=== PATIENT | male | born 1960 | race Caucasian/White ===

== ENCOUNTER → 2018-11-04 12:35 | Outpatient (CLI) | payer MEDICARE, MEDICAID, SELFPAY ==
[2018-10-28 15:28] VITALS: BMI 19.8
--- NOTE | 2018-11-04 12:38 | ART_ITS ---
Procedure A bilateral lower extremity continuous wave Doppler with analog waveform analysis,segmental pressures,and ankle brachial indexes without exercise. Technically difficult study. Ankle PVRs were mostly artifact difficult to assess. Left Segmental Pressures Left brachial= 106mmHg. Left thigh = 83mmHg. Left calf = 76mmHg. Left posterior tibial artery = 66mmHg. Left dorsalis pedis artery = 85mmHg. Left digit = 40 mmHg. The left calf waveforms are monophasic. The left dorsalis pedis waveforms are monophasic. The left posterior tibial artery waveforms are monophasic. The left thigh waveforms are monophasic. Right Segmental Pressures Right brachial= 112mmHg. Right thigh = 112mmHg. Right calf = 100mmHg. Right posterior tibial artery = 91mmHg. Right dorsalis pedis artery = 104mmHg. The right thigh waveforms are biphasic. The right calf waveforms are monophasic. The right dorsalis pedis waveforms are monophasic. The right posterior tibial artery waveforms are monophasic. Indices The right ankle brachial index by the dorsalis pedis is 0.93. The right ankle brachial index by the posterior tibial artery is 0.81. The right digital-brachial index is 0.46. The left ankle brachial index by the dorsalis pedis is 0.76. The left ankle brachial index by the posterior tibial artery is 0.59. The left digital-brachial index is 0.36. Interpretation Summary Right DP and PT LISSETTE's consistent with vascular claudication with suspected superficial femoral occlusive disease. Right digital indices moderately severe Monophasic right DP and PT waveforms suggest a more severe level of occlusive disease suggesting possible medial calcification of vessel virgen. Left DP and PT LISSETTE's well within the range of vascular claudication. Iliofemoral inflow disease and possibly femoral/popliteal disease on the left. Markedly abnormal digital indices consistent with critical ischemia Monophasic waveforms for the left PT and DP as on the right suggest medial calcification and a more severe level of disease Ordering Physician: Dev Alvarenga Referring Physician: Dev Alvarenga Performed By: Grisel Day RVT, CS
--- NOTE | 2018-11-04 12:38 | ECHOD_ITS ---
Reason For Study: Dyspnea/SOB Procedure This was a 2D Doppler, Color Flow transthoracic echocardiogram. Patient declined Definity. The study was technically difficult. Exam performed in department. Left Ventricle Normal LV size. Mid cavitary false tendon noted. Severe segmental systolic dysfunction (see wall motion). The estimated ejection fraction is 25 %. Transmitral doppler flow suggestive of impaired relaxation of left ventricle. Anterio-Basal: Hypokinetic. Infero-Basal: Hypokinetic. Basal inferoseptal: Akinetic. Basal anteroseptal: Akinetic. Mid-Anterior : Hypokinetic. Mid-Lateral : Hypokinetic. Mid-Posterior: Hypokinetic. Mid-Inferior: Hypokinetic. Mid-inferoseptal : Hypokinetic. Mid-anteroseptal : Akinetic. [place] : Hypokinetic. Right Ventricle Normal RV size. Normal systolic function. Atria Normal left atrium. Normal right atrium. No doppler evidence for ASD. Mitral Valve There is no mitral annular calcification. Mild diffuse mitral valve thickening. Trivial mitral valve insufficiency. Tricuspid Valve Normal tricuspid valve. Trivial tricuspid valve insufficiency. Unable to estimate RV systolic pressure/pulmonary artery pressure due to technically difficult study. Aortic Valve Trisinus/trileaflet aortic valve. Mild diffuse aortic valve thickening. Mild focal aortic valve calcification. Aortic sclerosis, no stenosis. Trivial aortic valve insufficiency. Pulmonic Valve The pulmonic valve is not well visualized. Great Vessels Normal sized aortic root. Pericardium/Pleural No pericardial effusion. MMode/2D Measurements & Calculations LVIDd: 5.0 cm IVSd: 1.4 cm Ao root diam: 3.1 cm LVIDs: 4.4 cm LVPWd: 1.2 cm LA dimension: 3.1 cm RVDd: 2.5 cm FS: 12.3 % LAV(MOD-bp): 26.7 ml LVAd ap4: 30.3 cm2 SV(MOD-sp4): 23.0 ml LAV(MOD-bp) Indexed: 15.1 ml/m2 EDV(MOD-sp4): 95.4 ml LAV(MOD-sp2): 34.0 ml EDV(sp4-el): 96.5 ml LAV(MOD-sp4): 19.0 ml LVAs ap4: 25.0 cm2 ESV(MOD-sp4): 72.4 ml ESV(sp4-el): 71.8 ml EF(MOD-sp4): 24.1 % EF(sp4-el): 25.5 % SV(sp4-el): 24.6 ml LA A4 area: 10.4 cm2 RA A4 area: 9.3 cm2 Doppler Measurements & Calculations MV E max cl: 56.3 cm/sec Lat Peak E' Cl: 6.8 cm/sec Med Peak E' Cl: 6.3 cm/sec MV A max cl: 102.5 cm/sec E/E' lat: 8.2 E/E' med: 9.0 MV E/A: 0.55 Ao V2 max: 120.1 cm/sec LV V1 max: 102.7 cm/sec PA V2 max: 108.0 cm/sec Ao max P.8 mmHg LV V1 max P.2 mmHg Ao V2 mean: 90.9 cm/sec Ao mean P.5 mmHg Ao V2 VTI: 21.1 cm Interpretation Summary The study was technically difficult. Severe segmental systolic dysfunction (see wall motion). The estimated ejection fraction is 25 %. Mid cavitary false tendon noted. Mild diffuse mitral valve thickening. Trivial mitral valve insufficiency. Trivial tricuspid valve insufficiency. Aortic sclerosis, no stenosis. Trivial aortic valve insufficiency. Unable to estimate RV systolic pressure/pulmonary artery pressure due to technically difficult study. Transmitral doppler flow suggestive of impaired relaxation of left ventricle Ordering Physician: Dev Alvarenga Referring Physician: Doug Monroy Performed By: Ambar Ferrer, VICTORINA, RVT
== END ==
PROVIDERS: Family Provider Internal Medicine; PCP Internal Medicine; Referring Provider Internal Medicine Cardiovascular Disease; Visit Provider Internal Medicine Cardiovascular Disease
DX: I25.10 Atherosclerotic heart disease of native coronary artery without angina pectoris (principal); I50.22 Chronic systolic (congestive) heart failure; I43 Cardiomyopathy in diseases classified elsewhere; I73.9 Peripheral vascular disease, unspecified; Z95.5 Presence of coronary angioplasty implant and graft
CPT/HCPCS: 93306; 93923

== ENCOUNTER → 2020-08-27 13:47 | Outpatient (CLI) | payer MEDICARE, MEDICAID, SELFPAY ==
[2020-07-28 15:27] VITALS: BMI 18.8
--- NOTE | 2020-08-27 13:51 | ECHOD_ITS ---
Reason For Study: CMP Procedure This was a 2D Doppler, Color Flow transthoracic echocardiogram. The exam was of adequate technical quality. Exam performed in department. Left Ventricle Normal LV size. Mid cavitary false tendon noted. Severe segmental systolic dysfunction (see wall motion). The estimated ejection fraction is 20 %. Diastolic function is indeterminate. Anterio- Basal: Hypokinetic. Lateral-Basal: Hypokinetic. Posterior-Basal: Hypokinetic. Infero-Basal: Akinetic. Basal inferoseptal: Akinetic. Basal anteroseptal: Hypokinetic. Mid-Anterior : Akinetic. Mid-Lateral : Severely Hypokinetic. Mid-Posterior: Akinetic. Mid-Inferior: Akinetic. Mid- inferoseptal : Akinetic. Mid-anteroseptal : Akinetic. Anterior [place] : Akinetic. Inferior [place] : Akinetic. Lateral [place] : Severely Hypokinetic. Septal [place] : Hypokinetic. Right Ventricle Normal RV size. Normal systolic function. Atria Normal left atrium. Normal right atrium. No doppler evidence for ASD. Mitral Valve There is no mitral annular calcification. Normal mitral valve. Trivial mitral valve insufficiency. Tricuspid Valve Normal tricuspid valve. Trivial tricuspid valve insufficiency. Aortic Valve Trisinus/trileaflet aortic valve. Mild focal aortic valve calcification. Pulmonic Valve The pulmonic valve is not well visualized. Great Vessels The aortic root is not well visualized. Pericardium/Pleural No pericardial effusion. MMode/2D Measurements & Calculations LVIDd: 5.4 cm IVSd: 1.1 cm LA dimension: 3.5 cm LVIDs: 5.0 cm LVPWd: 1.4 cm FS: 6.2 % LAV(MOD-bp): 32.6 ml LVAd ap4: 43.4 cm2 SV(MOD-sp4): 31.7 ml LAV(MOD-bp) Indexed: 18.7 ml/m2 EDV(MOD-sp4): 168.5 ml LAV(MOD-sp2): 40.3 ml EDV(sp4-el): 171.7 ml LAV(MOD-sp4): 26.0 ml LVAs ap4: 37.8 cm2 ESV(MOD-sp4): 136.8 ml ESV(sp4-el): 135.1 ml EF(MOD-sp4): 18.8 % EF(sp4-el): 21.3 % SV(sp4-el): 36.6 ml LA A4 area: 12.5 cm2 RA A4 area: 8.6 cm2 Doppler Measurements & Calculations MV E max cl: 97.4 cm/sec Lat Peak E' Cl: 4.2 cm/sec Med Peak E' Cl: 7.0 cm/sec E/E' lat: 23.2 E/E' med: 13.8 Ao V2 max: 93.6 cm/sec LV V1 max: 71.0 cm/sec PA V2 max: 93.4 cm/sec Ao max P.5 mmHg LV V1 max P.0 mmHg Interpretation Summary Severe segmental systolic dysfunction (see wall motion). The estimated ejection fraction is 20 %. Mid cavitary false tendon noted. Trivial mitral valve insufficiency. Trivial tricuspid valve insufficiency. Mild focal aortic valve calcification. Diastolic function is indeterminate. Ordering Physician: Dev Alvarenga Referring Physician: No PCP noted Performed By: Mumtaz Marte RCS
== END ==
PROVIDERS: Referring Provider Internal Medicine Cardiovascular Disease; Visit Provider Internal Medicine Cardiovascular Disease
DX: I25.10 Atherosclerotic heart disease of native coronary artery without angina pectoris (principal); I43 Cardiomyopathy in diseases classified elsewhere; I11.0 Hypertensive heart disease with heart failure; I50.22 Chronic systolic (congestive) heart failure; E78.00 Pure hypercholesterolemia, unspecified; Z98.61 Coronary angioplasty status
CPT/HCPCS: 93306

== ENCOUNTER → 2020-09-02 15:56 | Outpatient (CLI) | payer MEDICARE, MEDICAID, SELFPAY ==
[2020-07-28 15:27] VITALS: BMI 18.8
[2020-09-02 17:28] LABS: Absolute Lymphocyte Count 2.81 X10^3/uL (0.83-4.51); Absolute Neutrophil Count 3.3 X10^3/uL (2.0-7.7); Basophil# 0.02 X10^3/uL; Basophil% 0.3 % (0-1); Eosinophil# 0.14 X10^3/uL; Eosinophils% 2.1 % (0-5); Hematocrit 50.2 % (40-54); Hemoglobin 16.5 g/dL (13.0-16.5); Lymphocyte # 2.81 X10^3/ul (4.0); Lymphocyte % 41.9 % (19-41); Mean Corp Hgb Conc 32.9 g/dL (32-36); Mean Corpuscular Hgb 29.1 pg (27.0-32.0); Mean Corpuscular Volume 88.5 fL (80-94); Mean Platelet Vol. 11.9 fl (6.2-12.0); Monocyte# 0.42 X10^3/uL; Monocyte% 6.3 % (0-10); NRBC Flagged by Analyzer 0 % (0-5); Neutrophil # 3.29 X10^3/uL (2.7-7.7); Neutrophil % 49.1 % (47-70); Platelet Count 230 K/mm3 (150-450); RBC Distribution Width CV 12.2 % (11.6-14.6); RBC Distribution Width SD 39.8 fl (35.1-43.9); Red Blood Count 5.67 M/mm3 (4.6-6.2); White Blood Count 6.7 K/mm3 (4.4-11.0)
[2020-09-02 17:47] LABS: Hemoglobin A1c 11.9 % (3.8-5.6)
[2020-09-02 18:18] LABS: ALB/GLOB Ratio 0.6 RATIO (0.9-2.4); AST(SGOT) 7 U/L (15-37); Alanine Aminotransfer ALT/SGPT 14 U/L (16-61); Albumin, Serum 3.1 g/dL (3.2-5.0); Alkaline Phosphatase 177 U/L (45-117); Anion Gap 7 (5-15); BUN 12 mg/dL (7-18); BUN/Creat Ratio 17.6 RATIO (10-20); Calcium,Total 9.2 mg/dL (8.5-10.1); Chloride 102 mmol/L (98-107); Cholesterol 233 mg/dL (200); Creatinine, Serum 0.68 mg/dL (0.70-1.30); EST Glomerular Filtration Rate 127 mL/min (>60); Est Glom Filt Rate - Afr Amer 154 mL/min (>60); Globulin 4.8 g/dL (2.2-4.2); Glucose 326 mg/dL (74-106); High Density Lipoprotein 35 mg/dL; Protein, Total 7.9 g/dL (6.4-8.2); Sodium Level 137 mmol/L (136-145); Thyroid Stim Hormone (TSH) 2.45 uIU/mL (0.358-3.74); Triglycerides 527 mg/dL
== END ==
PROVIDERS: PCP Internal Medicine; Referring Provider Internal Medicine; Visit Provider Internal Medicine
DX: E11.9 Type 2 diabetes mellitus without complications (principal); I11.0 Hypertensive heart disease with heart failure; Z89.519 Acquired absence of unspecified leg below knee; I25.10 Atherosclerotic heart disease of native coronary artery without angina pectoris; I73.9 Peripheral vascular disease, unspecified; I25.2 Old myocardial infarction; I65.23 Occlusion and stenosis of bilateral carotid arteries; I50.22 Chronic systolic (congestive) heart failure; Z98.61 Coronary angioplasty status; E78.00 Pure hypercholesterolemia, unspecified
CPT/HCPCS: 36415; 80053; 80061; 83036; 84443; 85025

== ENCOUNTER 2020-09-30 11:15 | Outpatient (RCR) | payer MEDICARE, MEDICAID, SELFPAY ==
[2020-07-28 15:27] VITALS: BMI 18.8
[2020-09-16 10:30] VITALS: BP 150/73; PULSE 113; RESP 18; TEMP 36.7; BMI 18.6
--- NOTE | 2020-09-16 12:50 | HP.PCM_ITS ---
(1) Ulcer of right lower extremity Status: Chronic Code(s): L97.919 - Non-pressure chronic ulcer of unspecified part of right lower leg with unspecified severity (2) Claudication Status: Chronic Code(s): I73.9 - Peripheral vascular disease, unspecified (3) Peripheral vascular disease Status: Chronic Code(s): I73.9 - Peripheral vascular disease, unspecified (4) Type 2 diabetes mellitus Status: Chronic Code(s): E11.9 - Type 2 diabetes mellitus without complications (5) S/P BKA (below knee amputation) Status: Resolved Qualifiers: Code(s): Z89.519 - Acquired absence of unspecified leg below knee Comment: Lt MELISSA @ [facility] 05/22/19 History of Present Illness Date of Service: 09/17/20 Chief Complaint: Right Lower extremity ulcers History of Wound: Mr. Moreno is a 60yo who was referred by his PCP to the wound center due to non healing right lower extremity ulcer. Exact onset is unknown. He was however seen by his PCP over 2 weeks jessica who had seen him months prior and at that time, noted a a lot of scaling . At his most recent visit, ulcerations were noted. History of PAD and patient states that he picks his skin a lot. He also reports almost constant bilateral lower extremity pain. 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 I saw him at the office along with his PCP and at that time ordered Santyl which he states that he has been applying over the necrotic area. There are now some open area. He continues to smoke daily. Past Medical History Past Medical History: Chronic Problems (Last Reviewed 07/28/20 @ 15:30 by Bhavani Cheung) Ulcer of right lower extremity (Chronic) Type 2 diabetes mellitus (Chronic) Claudication (Chronic) Presence of stent in coronary artery (Chronic ~03/27/08) PCI/stent to prox LAD and OM1, balloon angioplasty to Diagonal 1 03/27/08 Pure hypercholesterolemia (Chronic) Essential hypertension (Chronic) Stenosis of right carotid artery (Chronic) Peripheral vascular disease (Chronic) Arterial stenosis (Chronic) Old myocardial infarction (Chronic) Bilateral carotid artery stenosis (Chronic) Bruit of right carotid artery (Chronic) Chronic systolic (congestive) heart failure (Chronic) Cardiomyopathy in other diseases classified elsewhere (Chronic) Atherosclerotic heart disease of [place] coronary artery without angina pectoris (Chronic) 03/2008 PTCA of the LAD-proximal, Diag 1, OM 1 with intracoronary stent, IVUS LAD proximal Allergies/Adverse Reactions: Allergies Penicillins Allergy (Verified 09/02/20 15:11) Hives acetaminophen [From Percocet] Adverse Reaction (Verified 09/02/20 15:11) Other oxycodone HCl [From Percocet] Adverse Reaction (Verified 09/02/20 15:11) Other Home Medications: Ambulatory Orders Medication Instructions Recorded Aspirin E.C. [Ecotrin] 81 mg PO DAILY@0800 04/16/17 carvedilol 6.25 mg tablet 6.25 mg PO BID #60 tab 06/16/20 isosorbide mononitrate 30 mg 30 mg PO QAM #30 tab 06/16/20 tablet,extended release 24 hr nitroglycerin 0.4 mg sublingual 0.4 mg SUBLINGUAL Q5-15M PRN #25 06/16/20 tablet tab rosuvastatin 20 mg tablet 20 mg PO DAILY #30 tab 06/16/20 gabapentin 100 mg capsule 100 mg PO TID #90 cap 06/17/20 metformin 500 mg tablet 500 mg PO BID #180 tab 06/17/20 collagenase clostridium histo. 250 1 applic TOPICAL DAILY #30 g 09/02/20 unit/gram topical ointment sodium chloride 0.9 % irrigation 1 irrig TOPICAL DAILY #500 ml 09/02/20 solution dulaglutide 0.75 mg/0.5 mL 0.75 mg SC QWEEK #1 ml 09/06/20 subcutaneous pen injector Smoking Status: Current every day smoker Review of Systems Constitutional: Denies: Anorexia, Chills, Fever, Weakness Eyes: Denies: Conjunctivae Inflammation, Double vision, Pain, Redness HEENT: Denies: Difficulty Hearing, Difficulty Swallowing, Head Aches, Sore Throat Cardiovascular: Denies: Chest Tightness, Edema, Palpitations, Syncope Respiratory: Denies: Hemoptysis, Wheezing Gastrointestinal: Denies: Abdominal Pain, Hematemesis, Vomiting Skin: Denies: Jaundice - Physical Exam Vital Signs Temp Pulse Resp BP 98.0 F 113 H 18 150/73 H 09/16/20 10:30 09/16/20 10:30 09/16/20 10:30 09/16/20 10:30 General: Alert, Oriented x3, Cooperative, No apparent distress HEENT: Atraumatic, Normocephalic Oral: Moist Mucosa Neck: Supple Extremities: No cyanosis, Tenderness Skin: Ulcer/ Wound Wound Measurements and Assessment WC - Nurse 1 - General Ulcer Measurement Start: 09/16/20 10:30 Freq: Status: Active Protocol: Activity Type Activity Date Activity User E-Sign Co-Sign Detail Recorded Client Recorded Date Recorded By Document 09/16/20 10:30 PL [id number] 09/16/20 10:45 PL 09/16/20 10:30 Wound Center Nurse 1 [Ulcer Assessment] #1 RLE Cluster -Current Size (cm) - Length 11.5 -Current Size (cm) - Width 7.5 -Current Size (cm) - Depth 0.1 -Total Square Cm 86.25 -Date of Last Picture (Recall this 09/16/20 field) -Photo Taken Yes -Epithelialization Small 1-33% -Tunneling No -Undermining/Tunneling No -Circular Undermining No -Classification - Thickness Unclassifiable (Eschar Covered ) -Exudate Amt Medium -Exudate Type Serosanguineous -Granulation Amt None Present (0 %) -Necrosis Amt Large (67-100%) -Necrotic Tissue Type Eschar -Texture (Richelle-wound Skin Appearance) Excoriation -Moisture (Richelle-wound Skin Appearance Dry/Scaly ) -Color (Richelle-wound Skin Appearance) No Abnormality -Temperature (Richelle-wound Skin No Abnormality Appearance) (Pt Warm) -Ulcer Cleansing Rinsed/ Irrigated with Saline -Foul Odor after Cleansing No -Anesthetic Used 5% Lidocaine Gel ABDIRIZAK - Nurse 2 - General Ulcer CM Notes Start: 09/16/20 10:30 Freq: Status: Active Protocol: Activity Type Activity Date Activity User E-Sign Co-Sign Detail Recorded Client Recorded Date Recorded By Document 09/16/20 11:19 MW [id number] 09/16/20 11:26 MW 09/16/20 11:19 Wound Center Nurse 2 [Procedure/Treatment] -Time 11:21 -Correct Patient Yes -Correct Side, Site, Position Yes -Correct Procedure Yes -Procedure Performed No -Tunneling No -Undermining/Tunneling No -Circular Undermining No -Wound/Ulcer Outcome Not Healed -Ulcer Cleansing Not Cleansed -Foul Odor after Cleansing No -Bioengineered Tissue No -Bleeding Controlled with NA -Offloading No -Treatment Response Procedure Tolerated Well [See Physician Procedure note for Specifics] Pain Scale: 0-10 Numeric [Pain] -Is Patient Pain Free? Yes - Nurse 3 - General Ulcer D/C NN Start: 09/16/20 10:30 Freq: Status: Active Protocol: Activity Type Activity Date Activity User E-Sign Co-Sign Detail Recorded Client Recorded Date Recorded By Document 09/16/20 11:52 DL [id number] 09/16/20 11:54 DL 09/16/20 11:52 Wound Care Nurse 3 [Wound Dressing] #1 RLE Cluster -Ulcer Cleansing Rinsed/ Irrigated with Saline -Foul Odor after Cleansing No -Primary Dressing Applied NonAdherent Contact Layer -Other Dressing hydrogel -Primary Dressing Covered/Secured Dry Gauze & with Roll Gauze, Secured with Tape [Post Procedure Tolerated] -Treatment Response Procedure Tolerated Well Pain Scale: 0-10 Numeric [Pain] -Is Patient Pain Free? Yes - Visit Discharge [Visit Discharge Information] -Discharge Condition Stable -Ambulatory Status Wheelchair -Transportation Private Auto Musculoskeletal: Muscle Wasting Neurological: Cranial nerves II-XII grossly intact Psych/Mental Status: Normal Affect Debridement Note Post-Debridement Measurements/Treatment ABDIRIZAK - Nurse 2 - General Ulcer CM Notes Start: 09/16/20 10:30 Freq: Status: Active Protocol: Activity Type Activity Date Activity User E-Sign Co-Sign Detail Recorded Client Recorded Date Recorded By Document 09/16/20 11:19 MW [id number] 09/16/20 11:26 MW 09/16/20 11:19 Wound Center Nurse 2 #1 RLE Cluster -Time 11:21 -Correct Patient Yes -Correct Side, Site, Position Yes -Correct Procedure Yes -Procedure Performed No -Tunneling No -Undermining/Tunneling No -Circular Undermining No -Wound/Ulcer Outcome Not Healed -Ulcer Cleansing Not Cleansed -Foul Odor after Cleansing No -Bioengineered Tissue No -Bleeding Controlled with NA -Offloading No -Treatment Response Procedure Tolerated Well Pain Scale: 0-10 Numeric Is Patient Pain Free? Yes ABDIRIZAK - Nurse 3 - General Ulcer D/C NN Start: 09/16/20 10:30 Freq: Status: Active Protocol: Activity Type Activity Date Activity User E-Sign Co-Sign Detail Recorded Client Recorded Date Recorded By Document 09/16/20 11:52 DL [id number] 09/16/20 11:54 DL 09/16/20 11:52 Wound Care Nurse 3 #1 RLE Cluster -Ulcer Cleansing Rinsed/ Irrigated with Saline -Foul Odor after Cleansing No -Primary Dressing Applied NonAdherent Contact Layer -Other Dressing hydrogel -Primary Dressing Covered/Secured with Dry Gauze & Roll Gauze, Secured with Tape Treatment Response Procedure Tolerated Well Pain Scale: 0-10 Numeric Is Patient Pain Free? Yes WC - Visit Discharge Discharge Condition Stable Ambulatory Status Wheelchair Transportation Private Auto No debridement was completed today Assessment/Plan Active Problems (Last Reviewed 07/28/20 @ 15:30 by Bhavani Cheung) Ulcer of right lower extremity (Chronic) Type 2 diabetes mellitus (Chronic) Claudication (Chronic) Peripheral vascular disease (Chronic) Assessment: Unstageable right lower extremity cluster ulcerations most likely secondary to peripheral arterial disease. History of poor compliance. Tobacco abuse. Plan: No debridement completed today. Still has significant areas of necrotic/Eschar clustered around the right lower extremity. He also reports concerns with sharp lower extremity pain. Arterial and venous duplex studies ordered. Very lengthy discussion had with patient on the need for smoking cessation. He is open to thinking about it. For now, continue Santyl with Adaptic and gauze over top. Change daily. Recommend optimal diabetes control. Elevate lower extremities when seated and in bed. Consider referral to vascular surgery after review. His questions were answered and he was advised to call with any further questions or concerns. Follow-up in a week. This note was generated with [email or web address] dictation software. It may contain incorrect words, spelling, and punctuation that were not noted in checking the note before signing. Office Visits / Consults: [id number] OV L4 Est
--- NOTE | 2020-09-23 09:01 | ART_ITS ---
Reason For Study: PAD Procedure A bilateral lower extremity continuous wave Doppler with analog waveform analysis,segmental pressures,and ankle brachial indexes without exercise. Pt has left below knee amputation. Left Segmental Pressures Left brachial= 125mmHg. Left thigh = 105mmHg. The left thigh waveforms are biphasic. Right Segmental Pressures Right brachial= 127mmHg. Right thigh = 82mmHg. Right calf = 64mmHg. Right posterior tibial artery = 78mmHg. Right dorsalis pedis artery = 90mmHg. The right dorsalis pedis waveforms are monophasic. The right posterior tibial artery waveforms are monophasic. Indices The right ankle brachial index by the dorsalis pedis is 0.71. The right ankle brachial index by the posterior tibial artery is 0.61. Left thigh-brachial index is 0.83. Interpretation Summary Monophasic Doppler waveforms are noted at ankle level on the right. Doppler waveforms were not obtained on the left due to a below-knee amputation. Pulse-volume recording waveform amplitudes are satisfactory at low-thigh level bilaterally, but diminished at calf, ankle, and digital levels on the right. The resting right ankle-brachial index is moderately diminished. There is evidence of moderate arterial occlusive disease in the right lower extremity, which appears to be due to arterial inflow disease at the ilio-femoral or femoral-popliteal level. Clinical correlation is advised. Ordering Physician: Doug Monroy Referring Physician: Xiomara Chambers Performed By: Natali Tomlin RVT
--- NOTE | 2020-09-23 09:01 | VDLE_ITS ---
Reason For Study: Ulcer RIGHT LEFT CFV is compressible, spontaneous, phasic, CFV is compressible, spontaneous, phasic, competent and demonstrates normal competent, and demonstrates normal augmentation. augmentation. FV is compressible, spontaneous, phasic, FV is compressible, spontaneous, phasic, competent and demonstrates normal competent and demonstrates normal augmentation. augmentation. POP V is compressible, spontaneous, phasic, POP V is compressible, spontaneous, phasic, competent and demonstrates normal competent and demonstrates normal augmentation. augmentation. T/P Trunk is compressible. T/P Trunk is compressible. PTV is compressible. Lt below knee amputation. RT PerV is compressible. SFJ is competent and measures 0.68 x 0.68 cm. SFJ is competent and measures 0.67 x 0.65 cm. GSV proximal thigh measures 0.26 x 0.27 cm. GSV proximal thigh measures 0.29 x 0.31 cm. GSV at knee measures 0.25 x 0.27 cm. GSV at knee measures 0.54 x 0.55 cm. GSV is competent throughout. GSV is competent throughout. SSV at junction is competent and measures SSV at junction is INCOMPETENT for greater 0.23 x 0.21 cm. than 0.5 seconds and measures 0.28 x 0.28 cm. Procedure This is a venous duplex using B-mode, color flow and spectral Doppler. Exam performed in department. A preliminary report was called and/or faxed to . Interpretation Summary Deep veins of the lower extremities are bilaterally patent and compressible segmentally. There is no evidence of deep vein thrombosis on either side. Valvular competence appears intact within the proximal deep venous systems bilaterally. The great saphenous veins appear bilaterally patent and compressible segmentally. Sapheno-femoral junctions are bilaterally competent . Valvular competence appears to be intact segmentally within the great saphenous veins bilaterally. The right small saphenous vein is patent and incompetent. The left small saphenous vein is patent and competent. The left lower extremity is amputated below the knee. Ordering Physician: Doug Monroy Referring Physician: Xiomara Chambers Performed By: Natali Tomlin RVT
[2020-09-23 10:43] VITALS: BP 108/72; PULSE 102; TEMP 36.9; BMI 18.6
--- NOTE | 2020-09-23 12:45 | PN.PCM_ITS ---
(1) Ulcer of right lower extremity Status: Chronic Code(s): L97.919 - Non-pressure chronic ulcer of unspecified part of right lower leg with unspecified severity (2) Claudication Status: Chronic Code(s): I73.9 - Peripheral vascular disease, unspecified (3) Peripheral vascular disease Status: Chronic Code(s): I73.9 - Peripheral vascular disease, unspecified (4) Type 2 diabetes mellitus Status: Chronic Code(s): E11.9 - Type 2 diabetes mellitus without complications (5) S/P BKA (below knee amputation) Status: Resolved Qualifiers: Code(s): Z89.519 - Acquired absence of unspecified leg below knee Comment: Lt MELISSA @ [facility] 05/22/19 Type of Wound Date of Service: 09/23/20 Chief Complaint: Right Lower extremity ulcers History of Wound: Mr. Moreno is a 60yo who was referred by his PCP to the wound center due to non healing right lower extremity ulcer. Exact onset is unknown. He was however seen by his PCP over 2 weeks jessica who had seen him months prior and at that time, noted a a lot of scaling . At his most recent visit, ulcerations were noted. History of PAD and patient states that he picks his skin a lot. He also reports almost constant bilateral lower extremity pain. 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 I saw him at the office along with his PCP and at that time ordered Santyl which he states that he has been applying over the necrotic area. There are now some open area. He continues to smoke daily. Progress of Wound: No new concerns at this time. Has been applying Santyl as directed. - Physical Exam Vital Signs Temp Pulse Resp BP 98.5 F 102 H 18 108/72 09/23/20 10:43 09/23/20 10:43 09/16/20 10:30 09/23/20 10:43 General: Alert, Oriented x3, Cooperative, No apparent distress HEENT: Atraumatic, Normocephalic Oral: Moist Mucosa Neck: Supple Extremities: No cyanosis Skin: Ulcer/ Wound Wound Measurements and Assessment WC - Nurse 1 - General Ulcer Measurement Start: 09/16/20 10:30 Freq: Status: Active Protocol: Activity Type Activity Date Activity User E-Sign Co-Sign Detail Recorded Client Recorded Date Recorded By Document 09/23/20 10:43 KR [id number] 09/23/20 10:51 KR 09/23/20 10:43 Wound Center Nurse 1 [Ulcer Assessment] #1 RLE Cluster Anterior -Current Size (cm) - Length 12.5 -Current Size (cm) - Width 4.9 -Current Size (cm) - Depth 0.3 -Total Square Cm 61.25 -Exudate Amt Small -Exudate Type Serosanguineous -Wound Margin Distinct, Outline Attached -Granulation Amt Medium (34-66%) -Granulation Quality Red -Necrosis Amt Medium (34-66%) -Necrotic Tissue Type Eschar -Texture (Richelle-wound Skin Appearance) Assessed, Scarring -Moisture (Richelle-wound Skin Appearance Assessed,Dry/ ) Scaly -Color (Richelle-wound Skin Appearance) No Abnormality, Assessed -Temperature (Richelle-wound Skin No Abnormality Appearance) (Pt Warm) -Tenderness on Palpation (Richelle-wound No Skin Appearance) -Ulcer Cleansing Rinsed/ Irrigated with Saline -Foul Odor after Cleansing No -Anesthetic Used 4% Lidocaine Solution WC - Nurse 2 - General Ulcer CM Notes Start: 09/16/20 10:30 Freq: Status: Active Protocol: Activity Type Activity Date Activity User E-Sign Co-Sign Detail Recorded Client Recorded Date Recorded By Document 09/23/20 11:16 MW [id number] 09/23/20 11:34 MW 09/23/20 11:16 Wound Center Nurse 2 [Procedure/Treatment] #2 RLE Posterior -Time 11:33 -Correct Patient Yes -Correct Side, Site, Position Yes -Correct Procedure Yes -Procedure Performed Yes -Type of Procedure Debridement -Clinical Debridement Subcutaneous -Tissue Removed Subcutaneous -Post Debridement (cm) - Length 0.7 -Post Debridement (cm) - Width 0.7 -Post Debridement (cm) - Depth 0.1 -Total Square (Post) (cm) 0.49 -Area of Debridement (cm) - Length 0.7 -Area of Debridement (cm) - Width 0.7 -Total Square (Area) (cm) 0.49 -Tunneling No -Undermining/Tunneling No -Circular Undermining No -Wound/Ulcer Outcome Not Healed -Ulcer Cleansing Rinsed/ Irrigated with Saline -Foul Odor after Cleansing No -Bioengineered Tissue No -Bleeding Controlled with Pressure -Offloading No -Debridement - Subq, 1st 20sq cm No #1 RLE Cluster Anterior -Time 11:16 -Correct Patient Yes -Correct Side, Site, Position Yes -Correct Procedure Yes -Procedure Performed Yes -Type of Procedure Debridement -Clinical Debridement Subcutaneous -Tissue Removed Subcutaneous -Post Debridement (cm) - Length 11.5 -Post Debridement (cm) - Width 5.7 -Post Debridement (cm) - Depth 0.3 -Total Square (Post) (cm) 65.55 -Area of Debridement (cm) - Length 11.5 -Area of Debridement (cm) - Width 5.7 -Total Square (Area) (cm) 65.55 -Tunneling No -Undermining/Tunneling No -Circular Undermining No -Wound/Ulcer Outcome Not Healed -Ulcer Cleansing Rinsed/ Irrigated with Saline -Foul Odor after Cleansing No -Bioengineered Tissue No -Bleeding Controlled with Pressure -Offloading No -Treatment Response Procedure Tolerated Well -Debridement - Subq, 1st 20sq cm Yes -Debridement, SubQ, ea addt'l 20sq cm 3 or part thereof [See Physician Procedure note for Specifics] Pain Scale: 0-10 Numeric [Pain] -Is Patient Pain Free? Yes - Nurse 3 - General Ulcer D/C NN Start: 09/16/20 10:30 Freq: Status: Active Protocol: Activity Type Activity Date Activity User E-Sign Co-Sign Detail Recorded Client Recorded Date Recorded By Document 09/23/20 11:43 DL [id number] 09/23/20 11:44 DL 09/23/20 11:43 Wound Care Nurse 3 [Wound Dressing] #2 RLE Posterior -Ulcer Cleansing Rinsed/ Irrigated with Saline -Foul Odor after Cleansing No -Other Dressing hydrogel/ adaptic -Primary Dressing Covered/Secured Dry Gauze & with Roll Gauze, Secured with Tape #1 RLE Cluster Anterior -Ulcer Cleansing Rinsed/ Irrigated with Saline -Foul Odor after Cleansing No -Other Dressing hydrogel/ adaptic -Primary Dressing Covered/Secured Dry Gauze & with Roll Gauze, Secured with Tape [Post Procedure Tolerated] -Treatment Response Procedure Tolerated Well Pain Scale: 0-10 Numeric [Pain] -Is Patient Pain Free? Yes - Visit Discharge [Visit Discharge Information] -Discharge Condition Stable -Ambulatory Status Wheelchair -Notes: Pt to resume Santyl at home Neurological: Cranial nerves II-XII grossly intact Psych/Mental Status: Normal Affect Debridement Note Post-Debridement Measurements/Treatment WC - Nurse 2 - General Ulcer CM Notes Start: 09/16/20 10:30 Freq: Status: Active Protocol: Activity Type Activity Date Activity User E-Sign Co-Sign Detail Recorded Client Recorded Date Recorded By Document 09/16/20 11:19 MW [id number] 09/16/20 11:26 MW Document 09/23/20 11:16 MW [id number] 09/23/20 11:34 MW 09/16/20 09/23/20 11:19 11:16 Wound Center Nurse 2 #2 RLE Posterior -Time 11:33 -Correct Patient Yes -Correct Side, Site, Position Yes -Correct Procedure Yes -Procedure Performed Yes -Type of Procedure Debridement -Clinical Debridement Subcutaneous -Tissue Removed Subcutaneous -Post Debridement (cm) - Length 0.7 -Post Debridement (cm) - Width 0.7 -Post Debridement (cm) - Depth 0.1 -Total Square (Post) (cm) 0.49 -Area of Debridement (cm) - Length 0.7 -Area of Debridement (cm) - Width 0.7 -Total Square (Area) (cm) 0.49 -Tunneling No -Undermining/Tunneling No -Circular Undermining No -Wound/Ulcer Outcome Not Healed -Ulcer Cleansing Rinsed/ Irrigated with Saline -Foul Odor after Cleansing No -Bioengineered Tissue No -Bleeding Controlled with Pressure -Offloading No -Debridement - Subq, 1st 20sq cm No #1 RLE Cluster Anterior -Time 11:21 11:16 -Correct Patient Yes Yes -Correct Side, Site, Position Yes Yes -Correct Procedure Yes Yes -Procedure Performed No Yes -Type of Procedure Debridement -Clinical Debridement Subcutaneous -Tissue Removed Subcutaneous -Post Debridement (cm) - Length 11.5 -Post Debridement (cm) - Width 5.7 -Post Debridement (cm) - Depth 0.3 -Total Square (Post) (cm) 65.55 -Area of Debridement (cm) - Length 11.5 -Area of Debridement (cm) - Width 5.7 -Total Square (Area) (cm) 65.55 -Tunneling No No -Undermining/Tunneling No No -Circular Undermining No No -Wound/Ulcer Outcome Not Healed Not Healed -Ulcer Cleansing Not Cleansed Rinsed/ Irrigated with Saline -Foul Odor after Cleansing No No -Bioengineered Tissue No No -Bleeding Controlled with NA Pressure -Offloading No No -Treatment Response Procedure Procedure Tolerated Well Tolerated Well -Debridement - Subq, 1st 20sq cm Yes -Debridement, SubQ, ea addt'l 20sq cm 3 or part thereof Pain Scale: 0-10 Numeric Is Patient Pain Free? Yes Yes - Nurse 3 - General Ulcer D/C NN Start: 09/16/20 10:30 Freq: Status: Active Protocol: Activity Type Activity Date Activity User E-Sign Co-Sign Detail Recorded Client Recorded Date Recorded By Document 09/16/20 11:52 DL [id number] 09/16/20 11:54 DL Document 09/23/20 11:43 DL [id number] 09/23/20 11:44 DL 09/16/20 09/23/20 11:52 11:43 Wound Care Nurse 3 #2 RLE Posterior -Ulcer Cleansing Rinsed/ Irrigated with Saline -Foul Odor after Cleansing No -Other Dressing hydrogel/ adaptic -Primary Dressing Covered/Secured with Dry Gauze & Roll Gauze, Secured with Tape #1 RLE Cluster Anterior -Ulcer Cleansing Rinsed/ Rinsed/ Irrigated with Irrigated with Saline Saline -Foul Odor after Cleansing No No -Primary Dressing Applied NonAdherent Contact Layer -Other Dressing hydrogel hydrogel/ adaptic -Primary Dressing Covered/Secured with Dry Gauze & Dry Gauze & Roll Gauze, Roll Gauze, Secured with Secured with Tape Tape Treatment Response Procedure Procedure Tolerated Well Tolerated Well Pain Scale: 0-10 Numeric Is Patient Pain Free? Yes Yes - Visit Discharge Discharge Condition Stable Stable Ambulatory Status Wheelchair Wheelchair Transportation Private Auto Notes: Pt to resume Santyl at home Wound debrided: Right lower extremity anterior cluster Type of Debridement: Excisional debridement Anesthesia Used: 4% Lidocaine Solution Depth: Down to and including healthy tissue, in the subcutaneous layer Instrument Used: 5mm curette, #15 blade, Forceps Tissue Removed: Slough and devitalized tissue Severity: Fat Layer Exposed Amount of bleeding with debridement: Mild Bleeding Controlled with: Pressure Patient tolerated procedure well Assessment/Plan Active Problems (Last Reviewed 07/28/20 @ 15:30 by Bhavani Cheung) Ulcer of right lower extremity (Chronic) Type 2 diabetes mellitus (Chronic) Claudication (Chronic) Peripheral vascular disease (Chronic) Assessment: Unstageable right lower extremity cluster ulcerations most likely se condary to peripheral arterial disease. History of poor compliance. Tobacco abuse. Plan: Debridement done as documented above. Procedure was well-tolerated. Continue Santyl With Adaptic and gauze over top. Change daily. Recommend optimal diabetes control. Elevate lower extremities when seated and in bed. Preliminary LISSETTE studies reviewed. Right LISSETTE at 0.7. Referred to vascular surgery. His questions were answered and he was advised to call with any further questions or concerns. Follow-up in a week. This note was generated with [employer] dictation software. It may contain incorrect words, spelling, and punctuation that were not noted in checking the note before signing. [id number]: [id number] Demi subq tissue 20 sq cm/< Add On Codes: 33579 Demi subq tissue add-on - X 2. Additional Sq CM debrided. Please refer to clinical note
[2020-09-30 11:40] VITALS: BP 137/81; PULSE 96; RESP 18; TEMP 36; BMI 18.6
--- NOTE | 2020-09-30 12:56 | PN.PCM_ITS ---
(1) Ulcer of right lower extremity Status: Chronic Code(s): L97.919 - Non-pressure chronic ulcer of unspecified part of right lower leg with unspecified severity (2) Claudication Status: Chronic Code(s): I73.9 - Peripheral vascular disease, unspecified (3) Peripheral vascular disease Status: Chronic Code(s): I73.9 - Peripheral vascular disease, unspecified (4) Type 2 diabetes mellitus Status: Chronic Code(s): E11.9 - Type 2 diabetes mellitus without complications (5) S/P BKA (below knee amputation) Status: Resolved Qualifiers: Code(s): Z89.519 - Acquired absence of unspecified leg below knee Comment: Lt MELISSA @ [facility] 05/22/19 Type of Wound Date of Service: 09/30/20 Chief Complaint: Right Lower extremity ulcers History of Wound: Mr. Moreno is a 60yo who was referred by his PCP to the wound center due to non healing right lower extremity ulcer. Exact onset is unknown. He was however seen by his PCP over 2 weeks jessica who had seen him months prior and at that time, noted a a lot of scaling . At his most recent visit, ulcerations were noted. History of PAD and patient states that he picks his skin a lot. He also reports almost constant bilateral lower extremity pain. 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 I saw him at the office along with his PCP and at that time ordered Santyl which he states that he has been applying over the necrotic area. There are now some open area. He continues to smoke daily. Progress of Wound: No new concerns at this time. Has been applying Santyl as directed. Yet to establish with Vascular surgery. - Physical Exam Vital Signs Temp Pulse Resp BP 96.8 F L 96 18 137/81 H 09/30/20 11:40 09/30/20 11:40 09/30/20 11:40 09/30/20 11:40 General: Alert, Oriented x3, Cooperative, No apparent distress HEENT: Atraumatic, Normocephalic Oral: Moist Mucosa Neck: Supple Lungs: Normal air movement Extremities: No cyanosis Skin: Ulcer/ Wound Wound Measurements and Assessment WC - Nurse 1 - General Ulcer Measurement Start: 09/16/20 10:30 Freq: Status: Active Protocol: Activity Type Activity Date Activity User E-Sign Co-Sign Detail Recorded Client Recorded Date Recorded By Document 09/30/20 11:40 DL [id number] 09/30/20 11:42 DL 09/30/20 11:40 Wound Center Nurse 1 [Ulcer Assessment] #2 RLE Posterior -Current Size (cm) - Length 0.8 -Current Size (cm) - Width 0.5 -Current Size (cm) - Depth 0.1 -Total Square Cm 0.40 -Photo Taken No -Exudate Amt None Present -Wound Margin Epibole -Granulation Amt None Present (0 %) -Necrosis Amt Large (67-100%) -Necrotic Tissue Type Eschar -Structure Exposed N/A -Texture (Richelle-wound Skin Appearance) Scarring -Moisture (Richelle-wound Skin Appearance No Abnormality ) -Color (Richelle-wound Skin Appearance) Hemosiderin Staining -Temperature (Richelle-wound Skin No Abnormality Appearance) (Pt Warm) -Tenderness on Palpation (Richelle-wound No Skin Appearance) -Ulcer Cleansing Wound Cleanser -Foul Odor after Cleansing No -Anesthetic Used 4% Lidocaine Solution #1 RLE Cluster Anterior -Current Size (cm) - Length 9.2 -Current Size (cm) - Width 4 -Current Size (cm) - Depth 0.4 -Total Square Cm 36.8 -Photo Taken No -Exudate Amt Medium -Exudate Type Serosanguineous -Wound Margin Distinct, Outline Attached -Granulation Amt Medium (34-66%) -Granulation Quality Red -Necrosis Amt Medium (34-66%) -Necrotic Tissue Type Adherent Slough -Structure Exposed N/A -Texture (Richelle-wound Skin Appearance) Scarring -Moisture (Richelle-wound Skin Appearance Dry/Scaly ) -Color (Richelle-wound Skin Appearance) Hemosiderin Staining -Temperature (Richelle-wound Skin No Abnormality Appearance) (Pt Warm) -Tenderness on Palpation (Richelle-wound No Skin Appearance) -Ulcer Cleansing Wound Cleanser -Foul Odor after Cleansing No -Anesthetic Used 4% Lidocaine Solution WC - Nurse 2 - General Ulcer CM Notes Start: 09/16/20 10:30 Freq: Status: Active Protocol: Activity Type Activity Date Activity User E-Sign Co-Sign Detail Recorded Client Recorded Date Recorded By Document 09/30/20 11:43 MW [id number] 09/30/20 11:52 MW 09/30/20 11:43 Wound Center Nurse 2 [Procedure/Treatment] #2 RLE Posterior -Time 11:44 -Correct Patient Yes -Correct Side, Site, Position Yes -Correct Procedure Yes -Procedure Performed Yes -Type of Procedure Debridement -Clinical Debridement Subcutaneous -Tissue Removed Subcutaneous -Post Debridement (cm) - Length 0.7 -Post Debridement (cm) - Width 0.5 -Post Debridement (cm) - Depth 0.1 -Total Square (Post) (cm) 0.35 -Area of Debridement (cm) - Length 0.7 -Area of Debridement (cm) - Width 0.5 -Total Square (Area) (cm) 0.35 -Tunneling No -Undermining/Tunneling No -Circular Undermining No -Wound/Ulcer Outcome Not Healed -Ulcer Cleansing Rinsed/ Irrigated with Saline -Foul Odor after Cleansing No -Bioengineered Tissue No -Bleeding Controlled with Pressure -Offloading No -Treatment Response Procedure Tolerated Well -Debridement - Subq, 1st 20sq cm No #1 RLE Cluster Anterior -Time 11:44 -Correct Patient Yes -Correct Side, Site, Position Yes -Correct Procedure Yes -Procedure Performed Yes -Type of Procedure Debridement -Clinical Debridement Subcutaneous -Tissue Removed Subcutaneous -Post Debridement (cm) - Length 12.0 -Post Debridement (cm) - Width 8.0 -Post Debridement (cm) - Depth 0.3 -Total Square (Post) (cm) 96.00 -Area of Debridement (cm) - Length 12.0 -Area of Debridement (cm) - Width 8.0 -Total Square (Area) (cm) 96.00 -Tunneling No -Undermining/Tunneling No -Circular Undermining No -Wound/Ulcer Outcome Not Healed -Ulcer Cleansing Rinsed/ Irrigated with Saline -Foul Odor after Cleansing No -Bioengineered Tissue No -Bleeding Controlled with Pressure -Offloading No -Treatment Response Procedure Tolerated Well -Debridement - Subq, 1st 20sq cm Yes -Debridement, SubQ, ea addt'l 20sq cm 4 or part thereof [See Physician Procedure note for Specifics] Pain Scale: 0-10 Numeric [Pain] -Is Patient Pain Free? Yes WC - Nurse 3 - General Ulcer D/C NN Start: 09/16/20 10:30 Freq: Status: Active Protocol: Activity Type Activity Date Activity User E-Sign Co-Sign Detail Recorded Client Recorded Date Recorded By Document 09/30/20 12:07 PL [id number] 09/30/20 12:08 PL 09/30/20 12:07 Wound Care Nurse 3 [Wound Dressing] #2 RLE Posterior -Ulcer Cleansing Rinsed/ Irrigated with Saline -Foul Odor after Cleansing No -Other Dressing Santyl, Adatic -Primary Dressing Covered/Secured Dry Gauze & with Roll Gauze, Secured with Tape #1 RLE Cluster Anterior -Ulcer Cleansing Rinsed/ Irrigated with Saline -Foul Odor after Cleansing No -Other Dressing Santyl, Adatic -Primary Dressing Covered/Secured Dry Gauze & with Roll Gauze, Secured with Tape Pain Scale: 0-10 Numeric [Pain] -Is Patient Pain Free? Yes Neurological: Cranial nerves II-XII grossly intact Debridement Note Post-Debridement Measurements/Treatment WC - Nurse 2 - General Ulcer CM Notes Start: 09/16/20 10:30 Freq: Status: Active Protocol: Activity Type Activity Date Activity User E-Sign Co-Sign Detail Recorded Client Recorded Date Recorded By Document 09/16/20 11:19 MW [id number] 09/16/20 11:26 MW Document 09/23/20 11:16 MW [id number] 09/23/20 11:34 MW Document 09/30/20 11:43 MW [id number] 09/30/20 11:52 MW 09/16/20 09/23/20 09/30/20 11:19 11:16 11:43 Wound Center Nurse 2 #2 RLE Posterior -Time 11:33 11:44 -Correct Patient Yes Yes -Correct Side, Site, Position Yes Yes -Correct Procedure Yes Yes -Procedure Performed Yes Yes -Type of Procedure Debridement Debridement -Clinical Debridement Subcutaneous Subcutaneous -Tissue Removed Subcutaneous Subcutaneous -Post Debridement (cm) - Length 0.7 0.7 -Post Debridement (cm) - Width 0.7 0.5 -Post Debridement (cm) - Depth 0.1 0.1 -Total Square (Post) (cm) 0.49 0.35 -Area of Debridement (cm) - Length 0.7 0.7 -Area of Debridement (cm) - Width 0.7 0.5 -Total Square (Area) (cm) 0.49 0.35 -Tunneling No No -Undermining/Tunneling No No -Circular Undermining No No -Wound/Ulcer Outcome Not Healed Not Healed -Ulcer Cleansing Rinsed/ Rinsed/ Irrigated with Irrigated with Saline Saline -Foul Odor after Cleansing No No -Bioengineered Tissue No No -Bleeding Controlled with Pressure Pressure -Offloading No No -Treatment Response Procedure Tolerated Well -Debridement - Subq, 1st 20sq cm No No #1 RLE Cluster Anterior -Time 11: 11:16 11:44 -Correct Patient Yes Yes Yes -Correct Side, Site, Position Yes Yes Yes -Correct Procedure Yes Yes Yes -Procedure Performed No Yes Yes -Type of Procedure Debridement Debridement -Clinical Debridement Subcutaneous Subcutaneous -Tissue Removed Subcutaneous Subcutaneous -Post Debridement (cm) - Length 11.5 12.0 -Post Debridement (cm) - Width 5.7 8.0 -Post Debridement (cm) - Depth 0.3 0.3 -Total Square (Post) (cm) 65.55 96.00 -Area of Debridement (cm) - Length 11.5 12.0 -Area of Debridement (cm) - Width 5.7 8.0 -Total Square (Area) (cm) 65.55 96.00 -Tunneling No No No -Undermining/Tunneling No No No -Circular Undermining No No No -Wound/Ulcer Outcome Not Healed Not Healed Not Healed -Ulcer Cleansing Not Cleansed Rinsed/ Rinsed/ Irrigated with Irrigated with Saline Saline -Foul Odor after Cleansing No No No -Bioengineered Tissue No No No -Bleeding Controlled with NA Pressure Pressure -Offloading No No No -Treatment Response Procedure Procedure Procedure Tolerated Well Tolerated Well Tolerated Well -Debridement - Subq, 1st 20sq cm Yes Yes -Debridement, SubQ, ea addt'l 20sq cm 3 4 or part thereof Pain Scale: 0-10 Numeric Is Patient Pain Free? Yes Yes Yes WC - Nurse 3 - General Ulcer D/C NN Start: 09/16/20 10:30 Freq: Status: Active Protocol: Activity Type Activity Date Activity User E-Sign Co-Sign Detail Recorded Client Recorded Date Recorded By Document 09/16/20 11:52 DL [id number] 09/16/20 11:54 DL Document 09/23/20 11:43 DL [id number] 09/23/20 11:44 DL Document 09/30/20 12:07 PL [id number] 02/25/21 12:08 PL 09/16/20 09/23/20 09/30/20 11:52 11:43 12:07 Wound Care Nurse 3 #2 RLE Posterior -Ulcer Cleansing Rinsed/ Rinsed/ Irrigated with Irrigated with Saline Saline -Foul Odor after Cleansing No No -Other Dressing hydrogel/ Santyl, Adatic adaptic -Primary Dressing Covered/Secured with Dry Gauze & Dry Gauze & Roll Gauze, Roll Gauze, Secured with Secured with Tape Tape #1 RLE Cluster Anterior -Ulcer Cleansing Rinsed/ Rinsed/ Rinsed/ Irrigated with Irrigated with Irrigated with Saline Saline Saline -Foul Odor after Cleansing No No No -Primary Dressing Applied NonAdherent Contact Layer -Other Dressing hydrogel hydrogel/ Santyl, Adatic adaptic -Primary Dressing Covered/Secured with Dry Gauze & Dry Gauze & Dry Gauze & Roll Gauze, Roll Gauze, Roll Gauze, Secured with Secured with Secured with Tape Tape Tape Treatment Response Procedure Procedure Tolerated Well Tolerated Well Pain Scale: 0-10 Numeric Is Patient Pain Free? Yes Yes Yes WC - Visit Discharge Discharge Condition Stable Stable Ambulatory Status Wheelchair Wheelchair Transportation Private Auto Notes: Pt to resume Santyl at home Wound debrided: Right lower extremity ( salas cluster ) Type of Debridement: Excisional debridement Anesthesia Used: 4% Lidocaine Solution Depth: Down to and including healthy tissue, in the subcutaneous layer Percentage of wound debrided: 100 Instrument Used: 5mm curette Tissue Removed: Slough and devitalized tissue Severity: Fat Layer Exposed Amount of bleeding with debridement: Mild Bleeding Controlled with: Pressure Patient tolerated procedure well - Additional Wound Wound debrided: Right lower extremity ( Posterior ) Type of Debridement: Excisional debridement Anesthesia Used: 4% Lidocaine Solution Depth: Down to and including healthy tissue, in the subcutaneous layer Percentage of wound debrided: 100 Instrument Used: 5mm curette Tissue Removed: Slough and devitalized tissue Severity: Fat Layer Exposed Amount of bleeding with debridement: Mild Bleeding Controlled with: Pressure Patient tolerated procedure: Patient tolerated procedure well Assessment/Plan Active Problems (Last Reviewed 07/28/20 @ 15:30 by Bhavani Cheung) Ulcer of right lower extremity (Chronic) Type 2 diabetes mellitus (Chronic) Claudication (Chronic) Peripheral vascular disease (Chronic) Assessment: Unstageable right lower extremity cluster ulcerations most likely secondary to peripheral arterial disease. History of poor compliance. Tobacco abuse. Plan: No significant change. Debridement done as documented above. Procedure was well-tolerated. Continue Santyl With Adaptic and gauze over top. Change daily. Recommend optimal diabetes control. Elevate lower extremities when seated and in bed. Preliminary LISSETTE studies reviewed. Right LISSETTE at 0.7. Referred to vascular surgery. yet to schedule. His questions were answered and he was advised to call with any further questions or concerns. Follow-up in a week. This note was generated with [employer] dictation software. It may contain incorrect words, spelling, and punctuation that were not noted in checking the note before signing. [id number]: [id number] Demi subq tissue 20 sq cm/< Add On Codes: 23763 Demi subq tissue add-on - x4. Additional square centimeter debrided, please refer to clinical note.
== END 2020-10-03 23:59 ==
LOC: WC 11:15
PROVIDERS: PCP Internal Medicine; Referring Provider Internal Medicine; Visit Provider Internal Medicine
DX: E11.622 Type 2 diabetes mellitus with other skin ulcer (principal); E11.51 Type 2 diabetes mellitus with diabetic peripheral angiopathy without gangrene; Z89.512 Acquired absence of left leg below knee; L97.812 Non-pressure chronic ulcer of other part of right lower leg with fat layer exposed; F17.200 Nicotine dependence, unspecified, uncomplicated; I25.10 Atherosclerotic heart disease of native coronary artery without angina pectoris; I50.22 Chronic systolic (congestive) heart failure; I11.0 Hypertensive heart disease with heart failure; I42.9 Cardiomyopathy, unspecified; E78.00 Pure hypercholesterolemia, unspecified; I25.2 Old myocardial infarction; Z79.899 Other long term (current) drug therapy; Z79.82 Long term (current) use of aspirin; Z95.5 Presence of coronary angioplasty implant and graft; Z79.84 Long term (current) use of oral hypoglycemic drugs; Z89.519 Acquired absence of unspecified leg below knee; M79.605 Pain in left leg; M79.604 Pain in right leg
CPT/HCPCS: 11042; 11045; 93923; 93970; 99213; G0463

== ENCOUNTER 2020-10-28 11:00 | Outpatient (RCR) | payer MEDICARE, MEDICAID, SELFPAY ==
[2020-09-30 15:12] VITALS: BMI 18.8
[2020-10-04 00:35] VITALS: BP 137/81; PULSE 96; RESP 18; TEMP 36
[2020-10-07 11:38] VITALS: BP 102/75; PULSE 102; TEMP 36.2; BMI 18.8
--- NOTE | 2020-10-07 13:06 | PN.PCM_ITS ---
(1) Ulcer of right lower extremity Status: Chronic Code(s): L97.919 - Non-pressure chronic ulcer of unspecified part of right lower leg with unspecified severity (2) Peripheral vascular disease Status: Chronic Code(s): I73.9 - Peripheral vascular disease, unspecified (3) Type 2 diabetes mellitus Status: Chronic Code(s): E11.9 - Type 2 diabetes mellitus without complications (4) S/P BKA (below knee amputation) Status: Resolved Qualifiers: Code(s): Z89.519 - Acquired absence of unspecified leg below knee Comment: Lt MELISSA @ [facility] 05/22/19 Type of Wound Date of Service: 10/07/20 Chief Complaint: Right Lower extremity ulcers History of Wound: Mr. Moreno is a 60yo who was referred by his PCP to the wound center due to non healing right lower extremity ulcer. Exact onset is unknown. He was however seen by his PCP over 2 weeks jessica who had seen him months prior and at that time, noted a a lot of scaling . At his most recent visit, ulcerations were noted. History of PAD and patient states that he picks his skin a lot. He also reports almost constant bilateral lower extremity pain. 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 I saw him at the office along with his PCP and at that time ordered Santyl which he states that he has been applying over the necrotic area. There are now some open area. He continues to smoke daily. Progress of Wound: No new concerns at this time. Has been applying Santyl as directed. Yet to establish with Vascular surgery. - Physical Exam Vital Signs Temp Pulse Resp BP 97.1 F L 102 H 18 102/75 10/07/20 11:38 10/07/20 11:38 10/04/20 00:35 10/07/20 11:38 General: Alert, Oriented x3, Cooperative, No apparent distress HEENT: Atraumatic, Normocephalic Oral: Moist Mucosa Neck: Supple Lungs: Normal air movement Extremities: No cyanosis Skin: Ulcer/ Wound Wound Measurements and Assessment WC - Nurse 1 - General Ulcer Measurement Start: 10/07/20 11:37 Freq: Status: Active Protocol: Activity Type Activity Date Activity User E-Sign Co-Sign Detail Recorded Client Recorded Date Recorded By Document 10/07/20 11:38 KR [id number] 10/07/20 11:44 KR 10/07/20 11:38 Wound Center Nurse 1 [Ulcer Assessment] #2 RLE Posterior -Current Size (cm) - Length 0.6 -Current Size (cm) - Width 0.4 -Current Size (cm) - Depth 0.1 -Total Square Cm 0.24 -Exudate Amt Medium -Exudate Type Serosanguineous -Wound Margin Distinct, Outline Attached -Necrosis Amt Large (67-100%) -Necrotic Tissue Type Adherent Slough -Texture (Richelle-wound Skin Appearance) Assessed, Scarring -Moisture (Richelle-wound Skin Appearance No Abnormality, ) Assessed -Color (Richelle-wound Skin Appearance) No Abnormality, Assessed -Temperature (Richelle-wound Skin No Abnormality Appearance) (Pt Warm) -Tenderness on Palpation (Richelle-wound No Skin Appearance) -Ulcer Cleansing Rinsed/ Irrigated with Saline -Foul Odor after Cleansing No -Anesthetic Used 4% Lidocaine Solution #1 RLE Cluster Anterior -Current Size (cm) - Length 11 -Current Size (cm) - Width 7.9 -Current Size (cm) - Depth 0.3 -Total Square Cm 86.9 -Exudate Amt Medium -Exudate Type Serosanguineous -Wound Margin Distinct, Outline Attached -Granulation Amt None Present (0 %) -Necrosis Amt Large (67-100%) -Necrotic Tissue Type Adherent Slough -Texture (Richelle-wound Skin Appearance) Assessed, Scarring -Moisture (Richelle-wound Skin Appearance No Abnormality, ) Assessed -Color (Richelle-wound Skin Appearance) No Abnormality, Assessed -Temperature (Richelle-wound Skin No Abnormality Appearance) (Pt Warm) -Tenderness on Palpation (Richelle-wound No Skin Appearance) -Ulcer Cleansing Rinsed/ Irrigated with Saline -Foul Odor after Cleansing No -Anesthetic Used 4% Lidocaine Solution WC - Nurse 2 - General Ulcer CM Notes Start: 10/07/20 11:37 Freq: Status: Active Protocol: Activity Type Activity Date Activity User E-Sign Co-Sign Detail Recorded Client Recorded Date Recorded By Document 10/07/20 11:53 MW [id number] 10/07/20 12:04 MW 10/07/20 11:53 Wound Center Nurse 2 [Procedure/Treatment] #2 RLE Posterior -Time 11:55 -Correct Patient Yes -Correct Side, Site, Position Yes -Correct Procedure Yes -Procedure Performed Yes -Type of Procedure Debridement -Clinical Debridement Subcutaneous -Tissue Removed Subcutaneous -Post Debridement (cm) - Length 0.9 -Post Debridement (cm) - Width 0.9 -Post Debridement (cm) - Depth 0.1 -Total Square (Post) (cm) 0.81 -Area of Debridement (cm) - Length 0.9 -Area of Debridement (cm) - Width 0.9 -Total Square (Area) (cm) 0.81 -Tunneling No -Undermining/Tunneling No -Circular Undermining No -Wound/Ulcer Outcome Not Healed -Ulcer Cleansing Rinsed/ Irrigated with Saline -Foul Odor after Cleansing No -Bioengineered Tissue No -Bleeding Controlled with Pressure -Offloading No -Treatment Response Procedure Tolerated Well -Debridement - Subq, 1st 20sq cm No #1 RLE Cluster Anterior -Time 11:55 -Correct Patient Yes -Correct Side, Site, Position Yes -Correct Procedure Yes -Procedure Performed Yes -Type of Procedure Debridement -Clinical Debridement Subcutaneous -Tissue Removed Subcutaneous -Post Debridement (cm) - Length 12.0 -Post Debridement (cm) - Width 5.5 -Post Debridement (cm) - Depth 0.2 -Total Square (Post) (cm) 66.00 -Area of Debridement (cm) - Length 12.0 -Area of Debridement (cm) - Width 5.5 -Total Square (Area) (cm) 66.00 -Tunneling No -Undermining/Tunneling No -Circular Undermining No -Wound/Ulcer Outcome Not Healed -Ulcer Cleansing Rinsed/ Irrigated with Saline -Foul Odor after Cleansing No -Bioengineered Tissue No -Bleeding Controlled with Pressure -Offloading No -Treatment Response Procedure Tolerated Well -Debridement - Subq, 1st 20sq cm Yes -Debridement, SubQ, ea addt'l 20sq cm 3 or part thereof [See Physician Procedure note for Specifics] Pain Scale: 0-10 Numeric [Pain] -Is Patient Pain Free? Yes WC - Nurse 3 - General Ulcer D/C NN Start: 10/07/20 11:37 Freq: Status: Active Protocol: Activity Type Activity Date Activity User E-Sign Co-Sign Detail Recorded Client Recorded Date Recorded By Document 10/07/20 12:08 [email or web address] [id number] 10/07/20 12:09 ЕЛЕНА 10/07/20 12:08 Wound Care Nurse 3 [Wound Dressing] #2 RLE Posterior -Ulcer Cleansing Rinsed/ Irrigated with Saline -Foul Odor after Cleansing No -Primary Dressing Applied C Hydrogel ($), NonAdherent Contact Layer -Primary Dressing Covered/Secured Dry Gauze,Dry with Gauze & Roll Gauze,Secured with Tape #1 RLE Cluster Anterior -Ulcer Cleansing Rinsed/ Irrigated with Saline -Foul Odor after Cleansing No -Primary Dressing Applied C Hydrogel ($), NonAdherent Contact Layer -Primary Dressing Covered/Secured Dry Gauze,Dry with Gauze & Roll Gauze,Secured with Tape Pain Scale: 0-10 Numeric [Pain] -Is Patient Pain Free? Yes WC - Visit Discharge [Visit Discharge Information] -Discharge Condition Stable -Ambulatory Status Wheelchair -Transportation Private Auto Neurological: Cranial nerves II-XII grossly intact Psych/Mental Status: Normal Affect Debridement Note Post-Debridement Measurements/Treatment WC - Nurse 2 - General Ulcer CM Notes Start: 10/07/20 11:37 Freq: Status: Active Protocol: Activity Type Activity Date Activity User E-Sign Co-Sign Detail Recorded Client Recorded Date Recorded By Document 10/07/20 11:53 MW [id number] 10/07/20 12:04 MW 10/07/20 11:53 Wound Center Nurse 2 #2 RLE Posterior -Time 11:55 -Correct Patient Yes -Correct Side, Site, Position Yes -Correct Procedure Yes -Procedure Performed Yes -Type of Procedure Debridement -Clinical Debridement Subcutaneous -Tissue Removed Subcutaneous -Post Debridement (cm) - Length 0.9 -Post Debridement (cm) - Width 0.9 -Post Debridement (cm) - Depth 0.1 -Total Square (Post) (cm) 0.81 -Area of Debridement (cm) - Length 0.9 -Area of Debridement (cm) - Width 0.9 -Total Square (Area) (cm) 0.81 -Tunneling No -Undermining/Tunneling No -Circular Undermining No -Wound/Ulcer Outcome Not Healed -Ulcer Cleansing Rinsed/ Irrigated with Saline -Foul Odor after Cleansing No -Bioengineered Tissue No -Bleeding Controlled with Pressure -Offloading No -Treatment Response Procedure Tolerated Well -Debridement - Subq, 1st 20sq cm No #1 RLE Cluster Anterior -Time 11:55 -Correct Patient Yes -Correct Side, Site, Position Yes -Correct Procedure Yes -Procedure Performed Yes -Type of Procedure Debridement -Clinical Debridement Subcutaneous -Tissue Removed Subcutaneous -Post Debridement (cm) - Length 12.0 -Post Debridement (cm) - Width 5.5 -Post Debridement (cm) - Depth 0.2 -Total Square (Post) (cm) 66.00 -Area of Debridement (cm) - Length 12.0 -Area of Debridement (cm) - Width 5.5 -Total Square (Area) (cm) 66.00 -Tunneling No -Undermining/Tunneling No -Circular Undermining No -Wound/Ulcer Outcome Not Healed -Ulcer Cleansing Rinsed/ Irrigated with Saline -Foul Odor after Cleansing No -Bioengineered Tissue No -Bleeding Controlled with Pressure -Offloading No -Treatment Response Procedure Tolerated Well -Debridement - Subq, 1st 20sq cm Yes -Debridement, SubQ, ea addt'l 20sq cm 3 or part thereof Pain Scale: 0-10 Numeric Is Patient Pain Free? Yes - Nurse 3 - General Ulcer D/C NN Start: 10/07/20 11:37 Freq: Status: Active Protocol: Activity Type Activity Date Activity User E-Sign Co-Sign Detail Recorded Client Recorded Date Recorded By Document 10/07/20 12:08 [email or web address] [id number] 10/07/20 12:09 ЕЛЕНА 10/07/20 12:08 Wound Care Nurse 3 #2 RLE Posterior -Ulcer Cleansing Rinsed/ Irrigated with Saline -Foul Odor after Cleansing No -Primary Dressing Applied C Hydrogel ($), NonAdherent Contact Layer -Primary Dressing Covered/Secured with Dry Gauze,Dry Gauze & Roll Gauze,Secured with Tape #1 RLE Cluster Anterior -Ulcer Cleansing Rinsed/ Irrigated with Saline -Foul Odor after Cleansing No -Primary Dressing Applied C Hydrogel ($), NonAdherent Contact Layer -Primary Dressing Covered/Secured with Dry Gauze,Dry Gauze & Roll Gauze,Secured with Tape Pain Scale: 0-10 Numeric Is Patient Pain Free? Yes - Visit Discharge Discharge Condition Stable Ambulatory Status Wheelchair Transportation Private Auto Wound debrided: Right lower extremity posterior Type of Debridement: Excisional debridement Anesthesia Used: 4% Lidocaine Solution Depth: Down to and including healthy tissue, in the subcutaneous layer Percentage of wound debrided: 100 Instrument Used: 3mm curette, #15 blade, Forceps Tissue Removed: Slough and devitalized tissue Severity: Fat Layer Exposed Amount of bleeding with debridement: Mild Bleeding Controlled with: Pressure Patient tolerated procedure well - Additional Wound Wound debrided: Right lower extremity anterior cluster Type of Debridement: Excisional debridement Anesthesia Used: 4% Lidocaine Solution Depth: Down to and including healthy tissue, in the subcutaneous layer Percentage of wound debrided: 100 Instrument Used: 5mm curette, #15 blade, Forceps Tissue Removed: Slough and devitalized tissue Severity: Fat Layer Exposed Amount of bleeding with debridement: Mild Bleeding Controlled with: Pressure Patient tolerated procedure: Patient tolerated procedure well Assessment/Plan Assessment: Right lower extremity ulcers with fat layer exposed. Peripheral arterial disease. Tobacco abuse. Plan: Overall achieving better granulation tissue. Debridement done as documented above. Procedure was well-tolerated. Continue Santyl With Adaptic and gauze over top. Change daily. Recommend optimal diabetes control. Elevate lower extremities when seated and in bed. LISSETTE studies reviewed. Right LISSETTE at 0.7. Referred to vascular surgery. yet to schedule. His questions were a nswered and he was advised to call with any further questions or concerns. Follow-up in a week. This note was generated with [employer] dictation software. It may contain incorrect words, spelling, and punctuation that were not noted in checking the note before signing. [id number]: [id number] Demi subq tissue 20 sq cm/< Add On Codes: [id number] Demi subq tissue add-on - Additional square centimeter debrided, please refer to clinical note.
[2020-10-14 14:42] VITALS: BP 93/76; PULSE 104; TEMP 36.3; BMI 18.8
[2020-10-14 15:17] VITALS: BP 96/76
--- NOTE | 2020-10-14 17:14 | PCM.WC.PN ---
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 transplanted heart: [place] heart Qualified Code(s): I25.10 - Atherosclerotic heart disease of [place] coronary artery without angina pectoris Code(s): I25.10 - Atherosclerotic heart disease of [place] coronary artery without angina pectoris Comment: 03/2008 PTCA of the LAD-proximal, Diag 1, OM 1 with intracoronary stent, IVUS LAD proximal (6) Essential hypertension Status: Chronic Code(s): I10 - Essential (primary) hypertension Type of Wound Date of Service: 10/14/20 Chief Complaint: Right Lower extremity ulcers History of Wound: Mr. Moreno is a 60yo who was referred by his PCP to the wound center due to non healing right lower extremity ulcer. Exact onset is unknown. He was however seen by his PCP over 2 weeks jessica who had seen him months prior and at that time, noted a a lot of scaling . At his most recent visit, ulcerations were noted. History of PAD and patient states that he picks his skin a lot. He also reports almost constant bilateral lower extremity pain. 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 I saw him at the office along with his PCP and at that time ordered Santyl which he states that he has been applying over the necrotic area. There are now some open area. He continues to smoke daily. Progress of Wound: courtesy visit for Dr. Monroy-No new concerns at this time. Has been applying Santyl as directed. Yet to establish with Vascular surgery. - Physical Exam Vital Signs Temp Pulse Resp BP 97.4 F L 104 H 18 96/76 10/14/20 14:42 10/14/20 14:42 10/04/20 00:35 10/14/20 15:17 General: Alert, Oriented x3, Cooperative, No apparent distress HEENT: Atraumatic Oral: Moist Mucosa Lungs: Clear to auscultation, Normal air movement Cardiovascular: Regular rate Abdomen: Soft, Non Tender Extremities: No clubbing, No cyanosis, No edema, - - left AKA Skin: Ulcer/ Wound - See nursing documentation, multiple ulcers on the right lower extremity with adherent slough, no signs of infection at this time Wound Measurements and Assessment WC - Nurse 1 - General Ulcer Measurement Start: 10/07/20 11:37 Freq: Status: Active Protocol: Activity Type Activity Date Activity User E-Sign Co-Sign Detail Recorded Client Recorded Date Recorded By Document 10/14/20 14:42 [email or web address] [id number] 10/14/20 14:47 [email or web address] 10/14/20 14:42 Wound Center Nurse 1 [Ulcer Assessment] #2 RLE Posterior -Current Size (cm) - Length 0.9 -Current Size (cm) - Width 0.8 -Current Size (cm) - Depth 0.1 -Total Square Cm 0.72 -Exudate Amt None Present -Exudate Type Serosanguineous -Wound Margin Distinct, Outline Attached -Granulation Amt Large (67-100%) -Granulation Quality Red -Texture (Richelle-wound Skin Appearance) Assessed, Scarring -Moisture (Richelle-wound Skin Appearance No Abnormality, ) Assessed -Color (Richelle-wound Skin Appearance) No Abnormality, Assessed -Temperature (Richelle-wound Skin No Abnormality Appearance) (Pt Warm) -Tenderness on Palpation (Richelle-wound No Skin Appearance) -Ulcer Cleansing Rinsed/ Irrigated with Saline -Foul Odor after Cleansing No -Anesthetic Used 4% Lidocaine Solution #1 RLE Cluster Anterior -Current Size (cm) - Length 12.5 -Current Size (cm) - Width 5.2 -Current Size (cm) - Depth 0.2 -Total Square Cm 65.00 -Exudate Amt Small -Exudate Type Serosanguineous -Wound Margin Distinct, Outline Attached -Granulation Amt Medium (34-66%) -Granulation Quality Red -Necrosis Amt Medium (34-66%) -Necrotic Tissue Type Adherent Slough -Texture (Richelle-wound Skin Appearance) Assessed, Scarring -Moisture (Richelle-wound Skin Appearance No Abnormality, ) Assessed -Color (Richelle-wound Skin Appearance) No Abnormality, Assessed -Temperature (Richelle-wound Skin No Abnormality Appearance) (Pt Warm) -Tenderness on Palpation (Richelle-wound No Skin Appearance) -Ulcer Cleansing Rinsed/ Irrigated with Saline -Foul Odor after Cleansing No -Anesthetic Used 4% Lidocaine Solution WC - Nurse 2 - General Ulcer CM Notes Start: 10/07/20 11:37 Freq: Status: Active Protocol: Activity Type Activity Date Activity User E-Sign Co-Sign Detail Recorded Client Recorded Date Recorded By Document 10/14/20 14:54 MW [id number] 10/14/20 15:00 MW 10/14/20 14:54 Wound Center Nurse 2 [Procedure/Treatment] #2 RLE Posterior -Time 14:55 -Correct Patient Yes -Correct Side, Site, Position Yes -Correct Procedure Yes -Procedure Performed Yes -Type of Procedure Debridement -Clinical Debridement Subcutaneous -Tissue Removed Subcutaneous -Post Debridement (cm) - Length 1.2 -Post Debridement (cm) - Width 1.0 -Post Debridement (cm) - Depth 0.2 -Total Square (Post) (cm) 1.20 -Area of Debridement (cm) - Length 1.2 -Area of Debridement (cm) - Width 1.0 -Total Square (Area) (cm) 1.20 -Tunneling No -Undermining/Tunneling No -Circular Undermining No -Wound/Ulcer Outcome Not Healed -Ulcer Cleansing Rinsed/ Irrigated with Saline -Foul Odor after Cleansing No -Bioengineered Tissue No -Bleeding Controlled with Pressure -Offloading No -Treatment Response Procedure Tolerated Well -Debridement - Subq, 1st 20sq cm Yes #1 RLE Cluster Anterior -Time 14:55 -Correct Patient Yes -Correct Side, Site, Position Yes -Correct Procedure Yes -Procedure Performed Yes -Type of Procedure Debridement -Clinical Debridement Subcutaneous -Tissue Removed Subcutaneous -Post Debridement (cm) - Length 13.0 -Post Debridement (cm) - Width 4.5 -Post Debridement (cm) - Depth 0.3 -Total Square (Post) (cm) 58.50 -Area of Debridement (cm) - Length 13.0 -Area of Debridement (cm) - Width 4.5 -Total Square (Area) (cm) 58.50 -Tunneling No -Undermining/Tunneling No -Circular Undermining No -Wound/Ulcer Outcome Not Healed -Ulcer Cleansing Rinsed/ Irrigated with Saline -Foul Odor after Cleansing No -Bioengineered Tissue No -Bleeding Controlled with Pressure -Offloading No -Treatment Response Procedure Tolerated Well -Debridement - Subq, 1st 20sq cm No -Debridement, SubQ, ea addt'l 20sq cm 2 or part thereof [See Physician Procedure note for Specifics] Pain Scale: 0-10 Numeric [Pain] -Is Patient Pain Free? Yes - Nurse 3 - General Ulcer D/C NN Start: 10/07/20 11:37 Freq: Status: Active Protocol: Activity Type Activity Date Activity User E-Sign Co-Sign Detail Recorded Client Recorded Date Recorded By Document 10/14/20 15:17 RB [id number] 10/14/20 15:18 RB 10/14/20 15:17 Wound Care Nurse 3 [Wound Dressing] #2 RLE Posterior -Primary Dressing Applied NonAdherent Contact Layer -Other Dressing santyl -Primary Dressing Covered/Secured Dry Gauze,Dry with Gauze & Roll Gauze,Secured with Tape #1 RLE Cluster Anterior -Other Dressing santyl -Primary Dressing Covered/Secured Dry Gauze,Dry with Gauze & Roll Gauze,Secured with Tape [Post Procedure Tolerated] -Treatment Response Procedure Tolerated Well Vital Signs [Blood Pressure] -Blood Pressure (90/60-120/80) 96/76 -Blood Pressure Mean (mm Hg) 82 -Source Monitor -Position Sitting -Blood Pressure Location Left Arm Pain Scale: 0-10 Numeric [Pain] -Is Patient Pain Free? Yes - Visit Discharge [Visit Discharge Information] -Discharge Condition Stable -Ambulatory Status Wheelchair -Transportation Private Auto -Medication Reconcilliation completed No & provided to patient/care provider -Clinical Summary of Care Provided Yes Neurological: Neuro grossly intact Psych/Mental Status: Normal Affect, Appropriate, Alert and oriented to time, place, person, mood and affect Debridement Note Post-Debridement Measurements/Treatment - Nurse 2 - General Ulcer CM Notes Start: 10/07/20 11:37 Freq: Status: Active Protocol: Activity Type Activity Date Activity User E-Sign Co-Sign Detail Recorded Client Recorded Date Recorded By Document 10/07/20 11:53 MW [id number] 10/07/20 12:04 MW Document 10/14/20 14:54 MW [id number] 10/14/20 15:00 MW 10/07/20 10/14/20 11:53 14:54 Wound Center Nurse 2 #2 RLE Posterior -Time 11:55 14:55 -Correct Patient Yes Yes -Correct Side, Site, Position Yes Yes -Correct Procedure Yes Yes -Procedure Performed Yes Yes -Type of Procedure Debridement Debridement -Clinical Debridement Subcutaneous Subcutaneous -Tissue Removed Subcutaneous Subcutaneous -Post Debridement (cm) - Length 0.9 1.2 -Post Debridement (cm) - Width 0.9 1.0 -Post Debridement (cm) - Depth 0.1 0.2 -Total Square (Post) (cm) 0.81 1.20 -Area of Debridement (cm) - Length 0.9 1.2 -Area of Debridement (cm) - Width 0.9 1.0 -Total Square (Area) (cm) 0.81 1.20 -Tunneling No No -Undermining/Tunneling No No -Circular Undermining No No -Wound/Ulcer Outcome Not Healed Not Healed -Ulcer Cleansing Rinsed/ Rinsed/ Irrigated with Irrigated with Saline Saline -Foul Odor after Cleansing No No -Bioengineered Tissue No No -Bleeding Controlled with Pressure Pressure -Offloading No No -Treatment Response Procedure Procedure Tolerated Well Tolerated Well -Debridement - Subq, 1st 20sq cm No Yes #1 RLE Cluster Anterior -Time 11:55 14:55 -Correct Patient Yes Yes -Correct Side, Site, Position Yes Yes -Correct Procedure Yes Yes -Procedure Performed Yes Yes -Type of Procedure Debridement Debridement -Clinical Debridement Subcutaneous Subcutaneous -Tissue Removed Subcutaneous Subcutaneous -Post Debridement (cm) - Length 12.0 13.0 -Post Debridement (cm) - Width 5.5 4.5 -Post Debridement (cm) - Depth 0.2 0.3 -Total Square (Post) (cm) 66.00 58.50 -Area of Debridement (cm) - Length 12.0 13.0 -Area of Debridement (cm) - Width 5.5 4.5 -Total Square (Area) (cm) 66.00 58.50 -Tunneling No No -Undermining/Tunneling No No -Circular Undermining No No -Wound/Ulcer Outcome Not Healed Not Healed -Ulcer Cleansing Rinsed/ Rinsed/ Irrigated with Irrigated with Saline Saline -Foul Odor after Cleansing No No -Bioengineered Tissue No No -Bleeding Controlled with Pressure Pressure -Offloading No No -Treatment Response Procedure Procedure Tolerated Well Tolerated Well -Debridement - Subq, 1st 20sq cm Yes No -Debridement, SubQ, ea addt'l 20sq cm 3 2 or part thereof Pain Scale: 0-10 Numeric Is Patient Pain Free? Yes Yes - Nurse 3 - General Ulcer D/C NN Start: 10/07/20 11:37 Freq: Status: Active Protocol: Activity Type Activity Date Activity User E-Sign Co-Sign Detail Recorded Client Recorded Date Recorded By Document 10/07/20 12:08 KR [id number] 10/07/20 12:09 KR Document 10/14/20 15:17 RB [id number] 10/14/20 15:18 RB 10/07/20 10/14/20 12:08 15:17 Wound Care Nurse 3 #2 RLE Posterior -Ulcer Cleansing Rinsed/ Irrigated with Saline -Foul Odor after Cleansing No -Primary Dressing Applied C Hydrogel ($), NonAdherent NonAdherent Contact Layer Contact Layer -Other Dressing santyl -Primary Dressing Covered/Secured with Dry Gauze,Dry Dry Gauze,Dry Gauze & Roll Gauze & Roll Gauze,Secured Gauze,Secured with Tape with Tape #1 RLE Cluster Anterior -Ulcer Cleansing Rinsed/ Irrigated with Saline -Foul Odor after Cleansing No -Primary Dressing Applied C Hydrogel ($), NonAdherent Contact Layer -Other Dressing santyl -Primary Dressing Covered/Secured with Dry Gauze,Dry Dry Gauze,Dry Gauze & Roll Gauze & Roll Gauze,Secured Gauze,Secured with Tape with Tape Treatment Response Procedure Tolerated Well Vital Signs Blood Pressure (90/60-120/80) 96/76 Blood Pressure Mean (mm Hg) 82 Source Monitor Position Sitting Blood Pressure Location Left Arm Pain Scale: 0-10 Numeric Is Patient Pain Free? Yes Yes - Visit Discharge Discharge Condition Stable Stable Ambulatory Status Wheelchair Wheelchair Transportation Private Auto Private Auto Medication Reconcilliation completed & No provided to patient/care provider Clinical Summary of Care Provided Yes Wound debrided: Right lower extremity ulcers Type of Debridement: Excisional debridement Anesthesia Used: 5% Lidocaine Gel Depth: in the subcutaneous layer Percentage of wound debrided: 100 Instrument Used: 5mm curette Tissue Removed: Slough and devitalized tissue Severity: Fat Layer Exposed Amount of bleeding with debridement: Mild Bleeding Controlled with: Pressure Patient tolerated procedure well Assessment/Plan Active Problems (Last Reviewed 07/28/20 @ 15:30 by Bhavani Cheung) Ulcer of right lower extremity (Chronic) Type 2 diabetes mellitus (Chronic) Peripheral vascular disease (Chronic) Assessment: Right lower extremity ulcers with fat layer exposed. Peripheral arterial disease. Tobacco abuse. Plan: courtesy visit Dr. Monory-Overall achieving better granulation tissue. Debridement done as documented above. Procedure was well-tolerated. Continue Santyl With Adaptic and gauze over top. Change daily. Recommend optimal diabetes control. Elevate lower extremities when seated and in bed. LISSETTE studies reviewed. Right LISSETTE at 0.7. Referred to vascular surgery. yet to schedule. His questions were answered and he was advised to call with any further questions or concerns. Follow-up in a week. This note was generated with [employer] dictation software. It may contain incorrect words, spelling, and punctuation that were not noted in checking the note before signing. [id number]: [id number] Demi subq tissue 20 sq cm/<
[2020-10-21 11:01] VITALS: BP 152/91; PULSE 106; RESP 18; TEMP 35.7; BMI 18.8
--- NOTE | 2020-10-21 12:38 | PN.PCM_ITS ---
(1) Ulcer of right lower extremity Status: Chronic Code(s): L97.919 - Non-pressure chronic ulcer of unspecified part of right lower leg with unspecified severity (2) Peripheral vascular disease Status: Chronic Code(s): I73.9 - Peripheral vascular disease, unspecified (3) Type 2 diabetes mellitus Status: Chronic Code(s): E11.9 - Type 2 diabetes mellitus without complications (4) S/P BKA (below knee amputation) Status: Resolved Qualifiers: Code(s): Z89.519 - Acquired absence of unspecified leg below knee Comment: Lt MELISSA @ [facility] 05/22/19 Type of Wound Date of Service: 10/21/20 Chief Complaint: Right Lower extremity ulcers History of Wound: Mr. Moreno is a 60yo who was referred by his PCP to the wound center due to non healing right lower extremity ulcer. Exact onset is unknown. He was however seen by his PCP over 2 weeks jessica who had seen him months prior and at that time, noted a a lot of scaling . At his most recent visit, ulcerations were noted. History of PAD and patient states that he picks his skin a lot. He also reports almost constant bilateral lower extremity pain. 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 I saw him at the office along with his PCP and at that time ordered Santyl which he states that he has been applying over the necrotic area. There are now some open area. He continues to smoke daily. Progress of Wound: No new concerns at this time. Has been applying Santyl as directed however not sufficiently cleaning before application. Yet to establish with Vascular surgery. - Physical Exam Vital Signs Temp Pulse Resp BP 96.3 F L 106 H 18 152/91 H 10/21/20 11:01 10/21/20 11:01 10/21/20 11:01 10/21/20 11:01 General: Alert, Oriented x3, Cooperative, No apparent distress HEENT: Atraumatic, Normocephalic Oral: Moist Mucosa Neck: Supple Lungs: Normal air movement Extremities: No cyanosis Skin: Ulcer/ Wound Wound Measurements and Assessment WC - Nurse 1 - General Ulcer Measurement Start: 10/07/20 11:37 Freq: Status: Active Protocol: Activity Type Activity Date Activity User E-Sign Co-Sign Detail Recorded Client Recorded Date Recorded By Document 10/21/20 11:01 DL [id number] 10/21/20 11:07 DL 10/21/20 11:01 Wound Center Nurse 1 [Ulcer Assessment] #2 RLE Posterior -Current Size (cm) - Length 1.7 -Current Size (cm) - Width 1.3 -Current Size (cm) - Depth 0.1 -Total Square Cm 2.21 -Photo Taken No -Exudate Amt None Present -Wound Margin Thickened -Granulation Amt None Present (0 %) -Necrosis Amt Large (67-100%) -Necrotic Tissue Type Eschar -Structure Exposed N/A -Texture (Richelle-wound Skin Appearance) Scarring -Moisture (Richelle-wound Skin Appearance No Abnormality ) -Color (Richelle-wound Skin Appearance) Erythema, Hemosiderin Staining -Temperature (Richelle-wound Skin No Abnormality Appearance) (Pt Warm) -Tenderness on Palpation (Richelle-wound No Skin Appearance) -Ulcer Cleansing Wound Cleanser -Foul Odor after Cleansing No -Anesthetic Used 4% Lidocaine Solution #1 RLE Cluster Anterior -Current Size (cm) - Length 13 -Current Size (cm) - Width 4.5 -Current Size (cm) - Depth 0.3 -Total Square Cm 58.5 -Photo Taken No -Exudate Amt Medium -Exudate Type Serosanguineous -Wound Margin Distinct, Outline Attached -Granulation Amt Medium (34-66%) -Granulation Quality Red -Necrosis Amt Medium (34-66%) -Necrotic Tissue Type Adherent Slough -Structure Exposed N/A -Texture (Richelle-wound Skin Appearance) Scarring -Moisture (Richelle-wound Skin Appearance No Abnormality ) -Color (Richelle-wound Skin Appearance) Hemosiderin Staining -Temperature (Richelle-wound Skin No Abnormality Appearance) (Pt Warm) -Tenderness on Palpation (Richelle-wound No Skin Appearance) -Ulcer Cleansing Wound Cleanser -Anesthetic Used 4% Lidocaine Solution WC - Nurse 2 - General Ulcer CM Notes Start: 10/07/20 11:37 Freq: Status: Active Protocol: Activity Type Activity Date Activity User E-Sign Co-Sign Detail Recorded Client Recorded Date Recorded By Document 10/21/20 11:15 MW [id number] 10/21/20 11:25 MW 10/21/20 11:15 Wound Center Nurse 2 [Procedure/Treatment] #2 RLE Posterior -Time 11:17 -Correct Patient Yes -Correct Side, Site, Position Yes -Correct Procedure Yes -Procedure Performed Yes -Type of Procedure Debridement -Clinical Debridement Subcutaneous -Tissue Removed Subcutaneous -Post Debridement (cm) - Length 1.5 -Post Debridement (cm) - Width 1.0 -Post Debridement (cm) - Depth 0.2 -Total Square (Post) (cm) 1.50 -Area of Debridement (cm) - Length 1.5 -Area of Debridement (cm) - Width 1.0 -Total Square (Area) (cm) 1.50 -Tunneling No -Undermining/Tunneling No -Circular Undermining No -Wound/Ulcer Outcome Not Healed -Ulcer Cleansing Rinsed/ Irrigated with Saline -Foul Odor after Cleansing No -Bioengineered Tissue No -Bleeding Controlled with Pressure -Offloading No -Treatment Response Procedure Tolerated Well -Debridement - Subq, 1st 20sq cm No #1 RLE Cluster Anterior -Time 11:18 -Correct Patient Yes -Correct Side, Site, Position Yes -Correct Procedure Yes -Procedure Performed Yes -Type of Procedure Debridement -Clinical Debridement Subcutaneous -Tissue Removed Subcutaneous -Post Debridement (cm) - Length 13.0 -Post Debridement (cm) - Width 5.0 -Post Debridement (cm) - Depth 0.3 -Total Square (Post) (cm) 65.00 -Area of Debridement (cm) - Length 13.0 -Area of Debridement (cm) - Width 5.0 -Total Square (Area) (cm) 65.00 -Tunneling No -Undermining/Tunneling No -Circular Undermining No -Wound/Ulcer Outcome Not Healed -Ulcer Cleansing Rinsed/ Irrigated with Saline -Foul Odor after Cleansing No -Bioengineered Tissue No -Bleeding Controlled with Pressure -Offloading No -Treatment Response Procedure Tolerated Well -Debridement - Subq, 1st 20sq cm Yes -Debridement, SubQ, ea addt'l 20sq cm 3 or part thereof [See Physician Procedure note for Specifics] Pain Scale: 0-10 Numeric [Pain] -Is Patient Pain Free? Yes WC - Nurse 3 - General Ulcer D/C NN Start: 10/07/20 11:37 Freq: Status: Active Protocol: Activity Type Activity Date Activity User E-Sign Co-Sign Detail Recorded Client Recorded Date Recorded By Document 10/21/20 11:32 MS [id number] 10/21/20 11:34 MS 10/21/20 11:32 Wound Care Nurse 3 [Wound Dressing] #2 RLE Posterior -Ulcer Cleansing Rinsed/ Irrigated with Saline -Primary Dressing Applied Fibracol Plus 4x4 -Other Dressing adaptic, -Primary Dressing Covered/Secured Dry Gauze & with Roll Gauze, Secured with Tape -Fibracol Plus 4x4 2 #1 RLE Cluster Anterior -Ulcer Cleansing Rinsed/ Irrigated with Saline -Foul Odor after Cleansing No -Other Dressing hydrogel, adaptic -Primary Dressing Covered/Secured Dry Gauze & with Roll Gauze, Secured with Tape Pain Scale: 0-10 Numeric [Pain] -Is Patient Pain Free? Yes WC - Visit Discharge [Visit Discharge Information] -Discharge Condition Stable -Ambulatory Status Ambulatory -Medication Reconcilliation completed No & provided to patient/care provider -Clinical Summary of Care Provided Yes Musculoskeletal: No Muscle Wasting Neurological: Cranial nerves II-XII grossly intact Psych/Mental Status: Normal Affect Debridement Note Post-Debridement Measurements/Treatment WC - Nurse 2 - General Ulcer CM Notes Start: 10/07/20 11:37 Freq: Status: Active Protocol: Activity Type Activity Date Activity User E-Sign Co-Sign Detail Recorded Client Recorded Date Recorded By Document 10/07/20 11:53 MW [id number] 10/07/20 12:04 MW Document 10/14/20 14:54 MW [id number] 10/14/20 15:00 MW Document 10/21/20 11:15 MW [id number] 10/21/20 11:25 MW 10/07/20 10/14/20 10/21/20 11:53 14:54 11:15 Wound Center Nurse 2 #2 RLE Posterior -Time 11:55 14:55 11:17 -Correct Patient Yes Yes Yes -Correct Side, Site, Position Yes Yes Yes -Correct Procedure Yes Yes Yes -Procedure Performed Yes Yes Yes -Type of Procedure Debridement Debridement Debridement -Clinical Debridement Subcutaneous Subcutaneous Subcutaneous -Tissue Removed Subcutaneous Subcutaneous Subcutaneous -Post Debridement (cm) - Length 0.9 1.2 1.5 -Post Debridement (cm) - Width 0.9 1.0 1.0 -Post Debridement (cm) - Depth 0.1 0.2 0.2 -Total Square (Post) (cm) 0.81 1.20 1.50 -Area of Debridement (cm) - Length 0.9 1.2 1.5 -Area of Debridement (cm) - Width 0.9 1.0 1.0 -Total Square (Area) (cm) 0.81 1.20 1.50 -Tunneling No No No -Undermining/Tunneling No No No -Circular Undermining No No No -Wound/Ulcer Outcome Not Healed Not Healed Not Healed -Ulcer Cleansing Rinsed/ Rinsed/ Rinsed/ Irrigated with Irrigated with Irrigated with Saline Saline Saline -Foul Odor after Cleansing No No No -Bioengineered Tissue No No No -Bleeding Controlled with Pressure Pressure Pressure -Offloading No No No -Treatment Response Procedure Procedure Procedure Tolerated Well Tolerated Well Tolerated Well -Debridement - Subq, 1st 20sq cm No Yes No #1 RLE Cluster Anterior -Time 11:55 14:55 11:18 -Correct Patient Yes Yes Yes -Correct Side, Site, Position Yes Yes Yes -Correct Procedure Yes Yes Yes -Procedure Performed Yes Yes Yes -Type of Procedure Debridement Debridement Debridement -Clinical Debridement Subcutaneous Subcutaneous Subcutaneous -Tissue Removed Subcutaneous Subcutaneous Subcutaneous -Post Debridement (cm) - Length 12.0 13.0 13.0 -Post Debridement (cm) - Width 5.5 4.5 5.0 -Post Debridement (cm) - Depth 0.2 0.3 0.3 -Total Square (Post) (cm) 66.00 58.50 65.00 -Area of Debridement (cm) - Length 12.0 13.0 13.0 -Area of Debridement (cm) - Width 5.5 4.5 5.0 -Total Square (Area) (cm) 66.00 58.50 65.00 -Tunneling No No No -Undermining/Tunneling No No No -Circular Undermining No No No -Wound/Ulcer Outcome Not Healed Not Healed Not Healed -Ulcer Cleansing Rinsed/ Rinsed/ Rinsed/ Irrigated with Irrigated with Irrigated with Saline Saline Saline -Foul Odor after Cleansing No No No -Bioengineered Tissue No No No -Bleeding Controlled with Pressure Pressure Pressure -Offloading No No No -Treatment Response Procedure Procedure Procedure Tolerated Well Tolerated Well Tolerated Well -Debridement - Subq, 1st 20sq cm Yes No Yes -Debridement, SubQ, ea addt'l 20sq cm 3 2 3 or part thereof Pain Scale: 0-10 Numeric Is Patient Pain Free? Yes Yes Yes WC - Nurse 3 - General Ulcer D/C NN Start: 10/07/20 11:37 Freq: Status: Active Protocol: Activity Type Activity Date Activity User E-Sign Co-Sign Detail Recorded Client Recorded Date Recorded By Document 10/07/20 12:08 KR [id number] 10/07/20 12:09 KR Document 10/14/20 15:17 RB [id number] 10/14/20 15:18 RB Document 10/21/20 11:32 MS [id number] 10/21/20 11:34 MS 10/07/20 10/14/20 10/21/20 12:08 15:17 11:32 Wound Care Nurse 3 #2 RLE Posterior -Ulcer Cleansing Rinsed/ Rinsed/ Irrigated with Irrigated with Saline Saline -Foul Odor after Cleansing No -Primary Dressing Applied C Hydrogel ($), NonAdherent Fibracol Plus NonAdherent Contact Layer 4x4 Contact Layer -Other Dressing santyl adaptic, -Primary Dressing Covered/Secured with Dry Gauze,Dry Dry Gauze,Dry Dry Gauze & Gauze & Roll Gauze & Roll Roll Gauze, Gauze,Secured Gauze,Secured Secured with with Tape with Tape Tape -Fibracol Plus 4x4 2 #1 RLE Cluster Anterior -Ulcer Cleansing Rinsed/ Rinsed/ Irrigated with Irrigated with Saline Saline -Foul Odor after Cleansing No No -Primary Dressing Applied C Hydrogel ($), NonAdherent Contact Layer -Other Dressing santyl hydrogel, adaptic -Primary Dressing Covered/Secured with Dry Gauze,Dry Dry Gauze,Dry Dry Gauze & Gauze & Roll Gauze & Roll Roll Gauze, Gauze,Secured Gauze,Secured Secured with with Tape with Tape Tape Treatment Response Procedure Tolerated Well Vital Signs Blood Pressure (90/60-120/80 mm Hg) 96/76 Blood Pressure Mean (mm Hg) 82 Source Monitor Position Sitting Blood Pressure Location Left Arm Pain Scale: 0-10 Numeric Is Patient Pain Free? Yes Yes Yes WC - Visit Discharge Discharge Condition Stable Stable Stable Ambulatory Status Wheelchair Wheelchair Ambulatory Transportation Private Auto Private Auto Medication Reconcilliation completed & No No provided to patient/care provider Clinical Summary of Care Provided Yes Yes Wound debrided: Right lower extremity anterior cluster Type of Debridement: Excisional debridement Anesthesia Used: 4% Lidocaine Solution Depth: Down to and including healthy tissue, in the subcutaneous layer Percentage of wound debrided: 100 Instrument Used: 5mm curette Tissue Removed: Slough and devitalized tissue Severity: Fat Layer Exposed Amount of bleeding with debridement: Mild Bleeding Controlled with: Pressure Patient tolerated procedure well - Additional Wound Wound debrided: Right lower extremity ( Posterior ) Type of Debridement: Excisional debridement Anesthesia Used: 4% Lidocaine Solution Depth: Down to and including healthy tissue, in the subcutaneous layer Percentage of wound debrided: 100 Instrument Used: 5mm curette Tissue Removed: Slough and devitalized tissue Severity: Fat Layer Exposed Amount of bleeding with debridement: Mild Bleeding Controlled with: Pressure Patient tolerated procedure: Patient tolerated procedure well Assessment/Plan Active Problems (Last Reviewed 07/28/20 @ 15:30 by Bhavani Cheung) Ulcer of right lower extremity (Chronic) Type 2 diabetes mellitus (Chronic) Essential hypertension (Chronic) Peripheral vascular disease (Chronic) Arterial stenosis (Chronic) Atherosclerotic heart disease of [place] coronary artery without angina pectoris (Chronic) 03/2008 PTCA of the LAD-proximal, Diag 1, OM 1 with intracoronary stent, IVUS LAD proximal Assessment: Right lower extremity ulcers with fat layer exposed. Peripheral arterial disease. Tobacco abuse. Plan: Debridement done as documented above. Procedure was well-tolerated. Anterior ulcers with better granulation tissue. Posterior ulcer still with significant slough. Patient admits that he is not really applying Santyl to that. Continue Santyl to posterior ulcer. Switch to Fibracol to anterior ulcers. He was strongly advised to cleanse daily with soap and water prior to application. Recommend optimal diabetes control. Elevate lower extremities when seated and in bed. LISSETTE studies reviewed. Right LISSETTE at 0.7. Referred to vascular surgery. yet to schedule. His questions were answered and he was advised to call with any further questions or concerns. Follow-up in a week. This note was generated with [employer] dictation software. It may contain incorrect words, spelling, and punctuation that were not noted in checking the note before signing. [id number]: [id number] Demi subq tissue 20 sq cm/< Add On Codes: 42960 Demi subq tissue add-on - Additional square centimeter debrided, please refer to clinical note.
[2020-10-28 10:57] VITALS: BP 143/83; PULSE 110; RESP 20; TEMP 37; BMI 18.8
--- NOTE | 2020-10-28 12:35 | PCM.WC.PN ---
(1) Ulcer of right lower extremity Status: Chronic Code(s): L97.919 - Non-pressure chronic ulcer of unspecified part of right lower leg with unspecified severity (2) Peripheral vascular disease Status: Chronic Code(s): I73.9 - Peripheral vascular disease, unspecified (3) Type 2 diabetes mellitus Status: Chronic Code(s): E11.9 - Type 2 diabetes mellitus without complications (4) S/P BKA (below knee amputation) Status: Resolved Qualifiers: Code(s): Z89.519 - Acquired absence of unspecified leg below knee Comment: Lt MELISSA @ [facility] 05/22/19 Type of Wound Date of Service: 10/28/20 Chief Complaint: Right Lower extremity ulcers History of Wound: Mr. Moreno is a 60yo who was referred by his PCP to the wound center due to non healing right lower extremity ulcer. Exact onset is unknown. He was however seen by his PCP over 2 weeks jessica who had seen him months prior and at that time, noted a a lot of scaling . At his most recent visit, ulcerations were noted. History of PAD and patient states that he picks his skin a lot. He also reports almost constant bilateral lower extremity pain. 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 I saw him at the office along with his PCP and at that time ordered Santyl which he states that he has been applying over the necrotic area. There are now some open area. He continues to smoke daily. Progress of Wound: No new concerns at this time. Applying Fibrocol to anterior leg and Santyl to Posterior. Still having difficulty with posterior. Yet to schedule with vasular surgery. - Physical Exam Vital Signs Temp Pulse Resp BP 98.6 F 110 H 20 H 143/83 H 10/28/20 10:57 10/28/20 10:57 10/28/20 10:57 10/28/20 10:57 General: Alert, Oriented x3, Cooperative HEENT: Atraumatic, Normocephalic Oral: Moist Mucosa Lungs: Normal air movement Extremities: No cyanosis, No edema Skin: Ulcer/ Wound Wound Measurements and Assessment WC - Nurse 1 - General Ulcer Measurement Start: 10/07/20 11:37 Freq: Status: Active Protocol: Activity Type Activity Date Activity User E-Sign Co-Sign Detail Recorded Client Recorded Date Recorded By Document 10/28/20 10:57 DL [id number] 10/28/20 11:03 DL 10/28/20 10:57 Wound Center Nurse 1 [Ulcer Assessment] #2 RLE Posterior -Current Size (cm) - Length 1.4 -Current Size (cm) - Width 1.2 -Current Size (cm) - Depth 0.1 -Total Square Cm 1.68 -Photo Taken No -Exudate Amt Small -Wound Margin Distinct, Outline Attached -Granulation Amt None Present (0 %) -Necrosis Amt Large (67-100%) -Necrotic Tissue Type Eschar -Structure Exposed N/A -Texture (Richelle-wound Skin Appearance) Scarring -Moisture (Richelle-wound Skin Appearance Dry/Scaly ) -Color (Richelle-wound Skin Appearance) Erythema -Temperature (Richelle-wound Skin No Abnormality Appearance) (Pt Warm) -Tenderness on Palpation (Richelle-wound No Skin Appearance) -Ulcer Cleansing Wound Cleanser -Foul Odor after Cleansing No -Anesthetic Used 4% Lidocaine Solution #1 RLE Cluster Anterior -Current Size (cm) - Length 13 -Current Size (cm) - Width 2.1 -Current Size (cm) - Depth 0.4 -Total Square Cm 27.3 -Photo Taken No -Exudate Amt Medium -Exudate Type Serosanguineous -Wound Margin Distinct, Outline Attached -Granulation Amt Medium (34-66%) -Granulation Quality Red -Necrosis Amt Medium (34-66%) -Necrotic Tissue Type Adherent Slough -Structure Exposed N/A -Texture (Richelle-wound Skin Appearance) Scarring -Moisture (Richelle-wound Skin Appearance Dry/Scaly ) -Color (Richelle-wound Skin Appearance) Erythema -Temperature (Richelle-wound Skin No Abnormality Appearance) (Pt Warm) -Tenderness on Palpation (Richelle-wound No Skin Appearance) -Ulcer Cleansing Wound Cleanser -Foul Odor after Cleansing No -Anesthetic Used 4% Lidocaine Solution WC - Nurse 2 - General Ulcer CM Notes Start: 10/07/20 11:37 Freq: Status: Active Protocol: Activity Type Activity Date Activity User E-Sign Co-Sign Detail Recorded Client Recorded Date Recorded By Document 10/28/20 11:43 MW [id number] 10/28/20 11:53 MW 10/28/20 11:43 Wound Center Nurse 2 [Procedure/Treatment] #2 RLE Posterior -Time 11:43 -Correct Patient Yes -Correct Side, Site, Position Yes -Correct Procedure Yes -Procedure Performed Yes -Type of Procedure Debridement -Clinical Debridement Subcutaneous -Tissue Removed Subcutaneous -Post Debridement (cm) - Length 1.8 -Post Debridement (cm) - Width 1.5 -Post Debridement (cm) - Depth 0.1 -Total Square (Post) (cm) 2.70 -Area of Debridement (cm) - Length 1.8 -Area of Debridement (cm) - Width 1.5 -Total Square (Area) (cm) 2.70 -Tunneling No -Undermining/Tunneling No -Circular Undermining No -Wound/Ulcer Outcome Not Healed -Ulcer Cleansing Rinsed/ Irrigated with Saline -Foul Odor after Cleansing No -Bioengineered Tissue No -Bleeding Controlled with Pressure -Offloading No -Treatment Response Procedure Tolerated Well -Debridement - Subq, 1st 20sq cm Yes #1 RLE Cluster Anterior -Time 11:43 -Correct Patient Yes -Correct Side, Site, Position Yes -Correct Procedure Yes -Procedure Performed Yes -Type of Procedure Debridement -Clinical Debridement Subcutaneous -Tissue Removed Subcutaneous -Post Debridement (cm) - Length 13.0 -Post Debridement (cm) - Width 4.5 -Post Debridement (cm) - Depth 0.3 -Total Square (Post) (cm) 58.50 -Area of Debridement (cm) - Length 13.0 -Area of Debridement (cm) - Width 4.5 -Total Square (Area) (cm) 58.50 -Tunneling No -Undermining/Tunneling No -Circular Undermining No -Wound/Ulcer Outcome Not Healed -Ulcer Cleansing Rinsed/ Irrigated with Saline -Foul Odor after Cleansing No -Bioengineered Tissue No -Bleeding Controlled with Pressure -Offloading No -Treatment Response Procedure Tolerated Well -Debridement - Subq, 1st 20sq cm No [See Physician Procedure note for Specifics] Pain Scale: 0-10 Numeric [Pain] -Is Patient Pain Free? Yes WC - Nurse 3 - General Ulcer D/C NN Start: 10/07/20 11:37 Freq: Status: Active Protocol: Activity Type Activity Date Activity User E-Sign Co-Sign Detail Recorded Client Recorded Date Recorded By Document 10/28/20 11:59 MW [id number] 10/28/20 12:01 MW 10/28/20 11:59 Wound Care Nurse 3 [Wound Dressing] #2 RLE Posterior -Primary Dressing Applied C Hydrogel ($), Fibracol Plus 4x4,NonAdherent Contact Layer -Primary Dressing Covered/Secured Dry Gauze,Dry with Gauze & Roll Gauze,Secured with Tape -Fibracol Plus 4x4 1 #1 RLE Cluster Anterior -Primary Dressing Applied C Hydrogel ($), NonAdherent Contact Layer -Primary Dressing Covered/Secured Dry Gauze & with Roll Gauze, Secured with Tape WC - Visit Discharge [Visit Discharge Information] -Discharge Condition Stable -Ambulatory Status Wheelchair -Transportation Private Auto Neurological: Cranial nerves II-XII grossly intact Psych/Mental Status: Normal Affect Debridement Note Post-Debridement Measurements/Treatment WC - Nurse 2 - General Ulcer CM Notes Start: 10/07/20 11:37 Freq: Status: Active Protocol: Activity Type Activity Date Activity User E-Sign Co-Sign Detail Recorded Client Recorded Date Recorded By Document 10/07/20 11:53 MW [id number] 10/07/20 12:04 MW Document 10/14/20 14:54 MW [id number] 10/14/20 15:00 MW Document 10/21/20 11:15 MW [id number] 10/21/20 11:25 MW Document 10/28/20 11:43 MW [id number] 10/28/20 11:53 MW 10/07/20 10/14/20 10/21/20 11:53 14:54 11:15 Wound Center Nurse 2 #2 RLE Posterior -Time 11:55 14:55 11:17 -Correct Patient Yes Yes Yes -Correct Side, Site, Position Yes Yes Yes -Correct Procedure Yes Yes Yes -Procedure Performed Yes Yes Yes -Type of Procedure Debridement Debridement Debridement -Clinical Debridement Subcutaneous Subcutaneous Subcutaneous -Tissue Removed Subcutaneous Subcutaneous Subcutaneous -Post Debridement (cm) - Length 0.9 1.2 1.5 -Post Debridement (cm) - Width 0.9 1.0 1.0 -Post Debridement (cm) - Depth 0.1 0.2 0.2 -Total Square (Post) (cm) 0.81 1.20 1.50 -Area of Debridement (cm) - Length 0.9 1.2 1.5 -Area of Debridement (cm) - Width 0.9 1.0 1.0 -Total Square (Area) (cm) 0.81 1.20 1.50 -Tunneling No No No -Undermining/Tunneling No No No -Circular Undermining No No No -Wound/Ulcer Outcome Not Healed Not Healed Not Healed -Ulcer Cleansing Rinsed/ Rinsed/ Rinsed/ Irrigated with Irrigated with Irrigated with Saline Saline Saline -Foul Odor after Cleansing No No No -Bioengineered Tissue No No No -Bleeding Controlled with Pressure Pressure Pressure -Offloading No No No -Treatment Response Procedure Procedure Procedure Tolerated Well Tolerated Well Tolerated Well -Debridement - Subq, 1st 20sq cm No Yes No #1 RLE Cluster Anterior -Time 11:55 14:55 11:18 -Correct Patient Yes Yes Yes -Correct Side, Site, Position Yes Yes Yes -Correct Procedure Yes Yes Yes -Procedure Performed Yes Yes Yes -Type of Procedure Debridement Debridement Debridement -Clinical Debridement Subcutaneous Subcutaneous Subcutaneous -Tissue Removed Subcutaneous Subcutaneous Subcutaneous -Post Debridement (cm) - Length 12.0 13.0 13.0 -Post Debridement (cm) - Width 5.5 4.5 5.0 -Post Debridement (cm) - Depth 0.2 0.3 0.3 -Total Square (Post) (cm) 66.00 58.50 65.00 -Area of Debridement (cm) - Length 12.0 13.0 13.0 -Area of Debridement (cm) - Width 5.5 4.5 5.0 -Total Square (Area) (cm) 66.00 58.50 65.00 -Tunneling No No No -Undermining/Tunneling No No No -Circular Undermining No No No -Wound/Ulcer Outcome Not Healed Not Healed Not Healed -Ulcer Cleansing Rinsed/ Rinsed/ Rinsed/ Irrigated with Irrigated with Irrigated with Saline Saline Saline -Foul Odor after Cleansing No No No -Bioengineered Tissue No No No -Bleeding Controlled with Pressure Pressure Pressure -Offloading No No No -Treatment Response Procedure Procedure Procedure Tolerated Well Tolerated Well Tolerated Well -Debridement - Subq, 1st 20sq cm Yes No Yes -Debridement, SubQ, ea addt'l 20sq cm 3 2 3 or part thereof Pain Scale: 0-10 Numeric Is Patient Pain Free? Yes Yes Yes 10/28/20 11:43 Wound Center Nurse 2 #2 RLE Posterior -Time 11:43 -Correct Patient Yes -Correct Side, Site, Position Yes -Correct Procedure Yes -Procedure Performed Yes -Type of Procedure Debridement -Clinical Debridement Subcutaneous -Tissue Removed Subcutaneous -Post Debridement (cm) - Length 1.8 -Post Debridement (cm) - Width 1.5 -Post Debridement (cm) - Depth 0.1 -Total Square (Post) (cm) 2.70 -Area of Debridement (cm) - Length 1.8 -Area of Debridement (cm) - Width 1.5 -Total Square (Area) (cm) 2.70 -Tunneling No -Undermining/Tunneling No -Circular Undermining No -Wound/Ulcer Outcome Not Healed -Ulcer Cleansing Rinsed/ Irrigated with Saline -Foul Odor after Cleansing No -Bioengineered Tissue No -Bleeding Controlled with Pressure -Offloading No -Treatment Response Procedure Tolerated Well -Debridement - Subq, 1st 20sq cm Yes #1 RLE Cluster Anterior -Time 11:43 -Correct Patient Yes -Correct Side, Site, Position Yes -Correct Procedure Yes -Procedure Performed Yes -Type of Procedure Debridement -Clinical Debridement Subcutaneous -Tissue Removed Subcutaneous -Post Debridement (cm) - Length 13.0 -Post Debridement (cm) - Width 4.5 -Post Debridement (cm) - Depth 0.3 -Total Square (Post) (cm) 58.50 -Area of Debridement (cm) - Length 13.0 -Area of Debridement (cm) - Width 4.5 -Total Square (Area) (cm) 58.50 -Tunneling No -Undermining/Tunneling No -Circular Undermining No -Wound/Ulcer Outcome Not Healed -Ulcer Cleansing Rinsed/ Irrigated with Saline -Foul Odor after Cleansing No -Bioengineered Tissue No -Bleeding Controlled with Pressure -Offloading No -Treatment Response Procedure Tolerated Well -Debridement - Subq, 1st 20sq cm No -Debridement, SubQ, ea addt'l 20sq cm or part thereof Pain Scale: 0-10 Numeric Is Patient Pain Free? Yes WC - Nurse 3 - General Ulcer D/C NN Start: 10/07/20 11:37 Freq: Status: Active Protocol: Activity Type Activity Date Activity User E-Sign Co-Sign Detail Recorded Client Recorded Date Recorded By Document 10/07/20 12:08 KR [id number] 10/07/20 12:09 KR Document 10/14/20 15:17 RB [id number] 10/14/20 15:18 RB Document 10/21/20 11:32 MS [id number] 10/21/20 11:34 MS Document 10/28/20 11:59 MW [id number] 10/28/20 12:01 MW 10/07/20 10/14/20 10/21/20 12:08 15:17 11:32 Wound Care Nurse 3 #2 RLE Posterior -Ulcer Cleansing Rinsed/ Rinsed/ Irrigated with Irrigated with Saline Saline -Foul Odor after Cleansing No -Primary Dressing Applied C Hydrogel ($), NonAdherent Fibracol Plus NonAdherent Contact Layer 4x4 Contact Layer -Other Dressing santyl adaptic, -Primary Dressing Covered/Secured with Dry Gauze,Dry Dry Gauze,Dry Dry Gauze & Gauze & Roll Gauze & Roll Roll Gauze, Gauze,Secured Gauze,Secured Secured with with Tape with Tape Tape -Fibracol Plus 4x4 2 #1 RLE Cluster Anterior -Ulcer Cleansing Rinsed/ Rinsed/ Irrigated with Irrigated with Saline Saline -Foul Odor after Cleansing No No -Primary Dressing Applied C Hydrogel ($), NonAdherent Contact Layer -Other Dressing santyl hydrogel, adaptic -Primary Dressing Covered/Secured with Dry Gauze,Dry Dry Gauze,Dry Dry Gauze & Gauze & Roll Gauze & Roll Roll Gauze, Gauze,Secured Gauze,Secured Secured with with Tape with Tape Tape Treatment Response Procedure Tolerated Well Vital Signs Blood Pressure (90/60-120/80 mm Hg) 96/76 Blood Pressure Mean (mm Hg) 82 Source Monitor Position Sitting Blood Pressure Location Left Arm Pain Scale: 0-10 Numeric Is Patient Pain Free? Yes Yes Yes WC - Visit Discharge Discharge Condition Stable Stable Stable Ambulatory Status Wheelchair Wheelchair Ambulatory Transportation Private Auto Private Auto Medication Reconcilliation completed & No No provided to patient/care provider Clinical Summary of Care Provided Yes Yes 10/28/20 11:59 Wound Care Nurse 3 #2 RLE Posterior -Ulcer Cleansing -Foul Odor after Cleansing -Primary Dressing Applied C Hydrogel ($), Fibracol Plus 4x4,NonAdherent Contact Layer -Other Dressing -Primary Dressing Covered/Secured with Dry Gauze,Dry Gauze & Roll Gauze,Secured with Tape -Fibracol Plus 4x4 1 #1 RLE Cluster Anterior -Ulcer Cleansing -Foul Odor after Cleansing -Primary Dressing Applied C Hydrogel ($), NonAdherent Contact Layer -Other Dressing -Primary Dressing Covered/Secured with Dry Gauze & Roll Gauze, Secured with Tape Treatment Response Vital Signs Blood Pressure (90/60-120/80 mm Hg) Blood Pressure Mean (mm Hg) Source Position Blood Pressure Location Pain Scale: 0-10 Numeric Is Patient Pain Free? WC - Visit Discharge Discharge Condition Stable Ambulatory Status Wheelchair Transportation Private Auto Medication Reconcilliation completed & provided to patient/care provider Clinical Summary of Care Provided Wound debrided: Right leg anterior cluster Type of Debridement: Excisional debridement Anesthesia Used: 4% Lidocaine Solution, 5% Lidocaine Gel Depth: Down to and including healthy tissue, in the subcutaneous layer Percentage of wound debrided: 100 Instrument Used: 5mm curette Tissue Removed: Slough and devitalized tissue Severity: Fat Layer Exposed Amount of bleeding with debridement: Mild Bleeding Controlled with: Pressure Patient tolerated procedure well - Additional Wound Wound debrided: Right lower extremity ( Posterior ) Type of Debridement: Excisional debridement Anesthesia Used: 4% Lidocaine Solution Depth: Down to and including healthy tissue, in the subcutaneous layer Percentage of wound debrided: 100 Instrument Used: 5mm curette Tissue Removed: Slough and devitalized tissue Severity: Fat Layer Exposed Amount of bleeding with debridement: Mild Bleeding Controlled with: Pressure Patient tolerated procedure: Patient tolerated procedure well Assessment/Plan Active Problems (Last Reviewed 07/28/20 @ 15:30 by Bhavani Cheung) Ulcer of right lower extremity (Chronic) Type 2 diabetes mellitus (Chronic) Essential hypertension (Chronic) Peripheral vascular disease (Chronic) Arterial stenosis (Chronic) 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 Peripheral arterial disease. Tobacco abuse. Plan: Debridement done as documented above. Procedure was well-tolerated. Anterior ulcers with better granulation tissue. Posterior ulcer still with significant slough. Continue Santyl to posterior ulcer and Fibracol to anterior ulcers. He was strongly advised to cleanse daily with soap and water prior to application. Recommend optimal diabetes control. Elevate lower extremities when seated and in bed. LISSETTE studies reviewed. Right LISSETTE at 0.7. Referred to vascular surgery. yet to schedule. His questions were answered and he was advised to call with any further questions or concerns. Follow-up in a week. This note was generated with [employer] dictation software. It may contain incorrect words, spelling, and punctuation that were not noted in checking the note before signing. [id number]: [id number] Demi subq tissue 20 sq cm/< Add On Codes: 80275 Demi subq tissue add-on - X3 Additional square centimeter debrided, please refer to clinical note.
== END 2020-11-03 23:59 ==
LOC: WC 11:00
PROVIDERS: PCP Internal Medicine; Referring Provider Internal Medicine; Visit Provider Internal Medicine
DX: E11.622 Type 2 diabetes mellitus with other skin ulcer (principal); E11.51 Type 2 diabetes mellitus with diabetic peripheral angiopathy without gangrene; L97.812 Non-pressure chronic ulcer of other part of right lower leg with fat layer exposed; Z89.519 Acquired absence of unspecified leg below knee; M79.605 Pain in left leg; M79.604 Pain in right leg; I25.10 Atherosclerotic heart disease of native coronary artery without angina pectoris; I10 Essential (primary) hypertension
CPT/HCPCS: 11042; 11045

== ENCOUNTER 2021-09-13 18:43 | Inpatient (IN) | payer MEDICARE, MEDICAID, SELFPAY ==
[2021-09-13] VITALS (7 sets, daily range): BP systolic 98–120; BP diastolic 79–81; PULSE 89–125; RESP 15–22; TEMP 36.2–36.7; O2SAT 94–100; BMI 15.0; BMI 16.4
--- NOTE | 2021-09-13 19:18 | EKG12_ITS ---
Test Reason : DYSRHYTHMIA Blood Pressure : / mmHG Vent. Rate : 119 BPM Atrial Rate : 119 BPM P-R Int : 150 ms QRS Dur : 106 ms QT Int : 326 ms P-R-T Axes : 053 067 151 degrees QTc Int : 458 ms Sinus tachycardia Incomplete left bundle branch block Nonspecific ST and T wave abnormality Abnormal ECG Confirmed by NAKUL BELLE, MATT ([id number]), publications editor ALBIN RESENDEZ ([id number]) on 09/14/2021 9:47:57 AM Referred By: JOSE Confirmed By:MATT MOTA MD
--- NOTE | 2021-09-13 19:47 | ED.VIS.DYS ---
HPI History of Present Illness Chief Complaint: Lower Extremity Injury Detail of Chief Complaint: Chief complaint is shortness of breath not lower extremity exam injury Informant: patient Onset/Context/Timing Onset: Days Context: gradual Timing: Continuous Quality: Positive for Dyspnea on exertion; Negative for Orthopnea, PND and Wheezing Current Severity: Mild Maximum Severity: Moderate Worsened by: Exertion and Lying flat Relieved by: Nothing Associated Symptoms cough; Negative for rhinorrhea, post nasal drip, ear pain, fever, sore throat, subjective, chills, sweats, clear sputum, white sputum, yellow sputum or green sputum Chest Pain: Positive for None Narrative PE Risk Factors: Negative for Cancer, OCP + Smoking + > 35, Prior DVT or PE, Recent immobilization, Recent surgery and Recent travel Prior similar symptoms: Yes (Congestive heart failure peripheral) Recent Illness/Hospitalization: No [facility] Medical History (Updated 09/13/21 @ 22:[address] Michael Chong MD) Arterial stenosis Atherosclerotic heart disease of [place] coronary artery without angina pectoris Bilateral carotid artery stenosis Bruit of right carotid artery Cardiomyopathy Cardiomyopathy in other diseases classified elsewhere CHF (congestive heart failure) Chronic systolic (congestive) heart failure Claudication Essential hypertension HTN (hypertension) Mitral valvular disorder Old myocardial infarction Peripheral vascular disease Pure hypercholesterolemia Stenosis of right carotid artery Type 2 diabetes mellitus Home Medications aspirin 81 mg PO DAILY@0800 04/16/17 [History Last Taken 04/17/17] nitroglycerin 0.4 mg sublingual tablet 0.4 mg SUBLINGUAL Q5-15M PRN #25 tab 06/16/20 [Rx Last Taken Unknown] gabapentin 100 mg capsule 100 mg PO TID #90 cap 06/17/20 [Rx Last Taken Unknown] metformin 500 mg tablet 500 mg PO BID #180 tab 06/17/20 [Rx Last Taken Unknown] collagenase clostridium histo. 250 unit/gram topical ointment 1 applic TOPICAL DAILY #30 g 09/02/20 [Rx Last Taken Unknown] sodium chloride 0.9 % irrigation solution 1 irrig TOPICAL DAILY #500 ml 09/02/20 [Rx Last Taken Unknown] dulaglutide 0.75 mg/0.5 mL subcutaneous pen injector 0.75 mg SC QWEEK #1 ml 09/06/20 [Rx Last Taken Unknown] Test strips #100 ea 09/30/20 [Rx Last Taken Unknown] alcohol swabs 1 pad TOPICAL BID #100 ea 09/30/20 [Rx Last Taken Unknown] glucometer 1 ea MC BID #1 device 09/30/20 [Rx Last Taken Unknown] lancets #100 ea 09/30/20 [Rx Last Taken Unknown] carvedilol 6.25 mg tablet 6.25 mg PO BID #180 tab 01/26/21 [Rx Last Taken Unknown] isosorbide mononitrate 30 mg tablet,extended release 24 hr 30 mg PO QAM #90 tab 01/26/21 [Rx Last Taken Unknown] rosuvastatin 20 mg tablet 20 mg PO DAILY #90 tab 01/26/21 [Rx Last Taken Unknown] Allergy/AdvReac Type Severity Reaction Status Date / Time Penicillins Allergy Hives Verified 09/13/21 18:44 acetaminophen [From Percocet] AdvReac Other Verified 09/13/21 18:44 oxycodone HCl [From Percocet] AdvReac Other Verified 09/13/21 18:44 Family History Grandfather Myocardial infarction Father Myocardial infarction Heart disease Mother Diabetes CVA (cerebral vascular accident) Myocardial infarction CAD (coronary artery disease) Hypertension Brother CAD (coronary artery disease) Hx CABG, cardiac stents (05-17) Myocardial infarction Brother Family history of brain aneurysm removed Brother CAD (coronary artery disease) hx cardiac stents Sister Diabetes Sister Diabetes Surgical History H/O percutaneous transluminal coronary angioplasty History of tonsillectomy Presence of stent in coronary artery (~03/27/08) S/P BKA (below knee amputation) (~05/22/19) Social History (Updated 09/13/21 @ 19:[address] Michael Chong MD) household members: family Smoking Status: Current every day smoker tobacco type: cigarettes alcohol intake: never substance use type: does not use caffeine: Yes Type: carbonated beverages Number of servings: 2 what type of physical activity do you participate in: walking frequency: daily seatbelt use: never do you feel safe at home: Yes ROS ROS ED Constitutional Constitutional ED: Denies chills, fever(s), sweats or weight loss Eyes Eyes: Denies blurry vision, change in vision or diplopia ENT ENT ED: Denies ear pain, rhinorrhea or sore throat Cardiovascular Cardiovascular: Denies chest pain, orthopnea, palpitations, paroxysmal nocturnal dyspnea or racing heartbeat Respiratory/Chest Respiratory/Chest: Reports cough, dyspnea and dyspnea on exertion; Denies orthopnea, paroxysmal nocturnal dyspnea or sputum Gastrointestinal Gastrointestinal: Denies abdominal pain, diarrhea, melena, nausea or vomiting Genitourinary Genitourinary ED: Denies dysuria, hematuria or urinary frequency Musculoskeletal Musculoskeletal: Denies arthralgias, back pain, myalgias or neck pain Integumentary Denies rash Neurologic Neurologic: Reports weakness; Denies headache(s) or paresthesias Endocrine Endocrinology: Denies cold intolerance, polydipsia, polyphagia or polyuria Hematologic/Lymphatic Hematologic/Lymphatic: Denies easy bleeding or easy bruising EXAM Physical Exam Const Vital Signs: 09/13/21 18:44 09/13/21 19:30 09/13/21 20:43 Temperature 98.1 F Temperature Source Temporal Pulse Rate 125 H 115 H Respiratory Rate 22 H 18 Respiratory Effort Normal Non-Labored Respiratory Depth Normal Respiratory Pattern Normal Blood Pressure 120/81 H 118/80 Blood Pressure Mean 94 92 Pulse Ox 100 95 Oxygen Delivery Method Room Air Room Air Room Air Positive well developed, cachectic and unkempt; Negative for well nourished General Appearance ED: unkempt, well developed and cachectic; Negative for NAD or pallor Nutritional Appearance: cachectic HEENT Reports TM's clear and dry mucous membranes HEENT Narrative: Ears normal. Nares patent. Mucosa is dry. atraumatic; Negative for tenderness Tympanic Membrane ED: Yes TM's clear Mouth ED: Yes dry mucous membranes Mouth: dry mucous membranes Eyes PERRL and EOMs intact bilaterally General Eye ED: Negative for pale conjunctiva or scleral icterus Neck no lymphadenopathy, supple, no meningeal signs and no JVD Neck Narrative: Trachea is midline. Resp No normal respiratory effort and No clear to auscultation bilaterally Auscultation: rales left base Cardio regular rate, S1 normal heart sound, S2 normal heart sound and no murmurs Rate: tachycardic GI non-tender, non-distended and no masses Auscultation: normoactive bowel sounds Palpation: soft Bladder / Kidney Exam: other Neuro oriented x3 and CN's II-XII intact bilaterally Romulo Coma Scale: document GCS findings Spontaneous Obeys Commands Oriented 15 Sensorium / Orientation: alert, oriented to person, oriented to place and oriented to time Psych mental status grossly normal Appearance: unkempt Thought Process: normal thought process Skin No no wounds and No skin turgor normal Skin Narrative: Patient has wounds medial dorsal side of the right foot. They do not appear infected at this time. Patient does have stigmata of peripheral arterial disease and BKA left side. General Skin Exam: Negative for jaundice or pallor Lesions: no lesions Rashes: no rashes MDM MDM MDM Narrative Medical decision making narrative: With patient being tachypneic tachycardic complain of dyspnea if there is no abnormality on chest x-ray to suggest congestive heart failure will need to evaluate for pulmonary embolus. Initially antibiotics for community-acquired pneumonia were ordered however because of patient's allergy these were canceled. Patient was treated with levofloxacin 750 mg. With a negative Covid test bilateral infiltrates pleural effusion patient will require IV antibiotics and admission. Lab Data Attestation: I reviewed the patient's lab results. Labs: Laboratory Results - last 24 hr 09/13/21 09/13/21 09/13/21 19:35 19:35 19:35 WBC 7.7 RBC 4.64 Hgb 13.4 Hct 40.0 MCV 86.2 MCH 28.9 MCHC 33.5 RDW Std Deviation 41.1 RDW Coeff of [place] 13.2 Plt Count 359 MPV 11.0 Immature Gran % (Auto) 0.300 Neut % (Auto) 59.5 Lymph % (Auto) 31.6 [place] % (Auto) 7.8 Eos % (Auto) 0.5 Baso % (Auto) 0.3 Absolute Neuts (auto) 4.6 Absolute Lymphs (auto) 2.43 Nucleated RBC % 0 Sodium 137 Potassium 4.4 Chloride 102 Carbon Dioxide 29.0 Anion Gap 6 BUN 18 Creatinine 0.74 Estim Creat Clear Calc 72.41 Est GFR (MDRD) Af Amer 139 Est GFR (MDRD) Non-Af 115 BUN/Creatinine Ratio 24.3 H Glucose 320 H Lactic Acid 1.8 Calcium 9.4 Total Bilirubin 0.30 Direct Bilirubin 0.11 AST 8 L ALT 10 L Alkaline Phosphatase 125 H B-Natriuretic Peptide Total Protein 7.7 Albumin 2.3 L Globulin 5.4 H 09/13/21 19:35 WBC RBC Hgb Hct MCV MCH MCHC RDW Std Deviation RDW Coeff of [place] Plt Count MPV Immature Gran % (Auto) Neut % (Auto) Lymph % (Auto) [place] % (Auto) Eos % (Auto) Baso % (Auto) Absolute Neuts (auto) Absolute Lymphs (auto) Nucleated RBC % Sodium Potassium Chloride Carbon Dioxide Anion Gap BUN Creatinine Estim Creat Clear Calc Est GFR (MDRD) Af Amer Est GFR (MDRD) Non-Af BUN/Creatinine Ratio Glucose Lactic Acid Calcium Total Bilirubin Direct Bilirubin AST ALT Alkaline Phosphatase B-Natriuretic Peptide 909.7 H Total Protein Albumin Globulin Radiography Chest X-Ray - ED: 1 View (Patient has small pleural effusion on the left possibly on the right. He has bilateral infiltrates. The chest x-ray was interpreted by me at 2000.) Diagnostic Testing: Clinical Impression(s) from Imaging Studies Chest X-Ray 09/13/21 19:57 IMPRESSION: There are bilateral pleural effusions. There are bilateral infiltrates. Electronically Signed: Buck Hodge MD at 20:14 EST Reading Location ID and State: [facility] / [place] , Service support , EKG Initial EKG: Attestation: I personally reviewed and interpreted this EKG as follows: Interpretation: Sinus Tachycardia (Rate is 119. MN interval is under 50 ms. Cures duration 106 ms. QT interval is 326 ms. Patient has evidence of incomplete left bundle branch block with an ossific changes due to left bundle branch block.) Discharge Plan Triage Chief Complaint: Lower Extremity Injury Other Complaint: Shortness of Breath ED Provider: Michael Chong Dx/Rx/DC Orders Clinical Impression: Bilateral pleural effusion, Adult failure to thrive, Unintended weight loss, Bilateral pulmonary infiltrates on CXR Prescriptions: No Action gabapentin 100 mg capsule 100 mg PO TID Qty: 90 RF: 1 metformin 500 mg tablet 500 mg PO BID Qty: 180 RF: 1 Santyl 250 unit/gram ointment 1 applic TOPICAL DAILY Qty: 30 RF: 0 sodium chloride [Sterile Saline] 0.9 % solution 1 irrig TOPICAL DAILY Qty: 500 RF: 0 carvedilol 6.25 mg tablet 6.25 mg PO BID Qty: 180 RF: 3 isosorbide mononitrate 30 mg tablet extended release 24 hr 30 mg PO QAM Qty: 90 RF: 3 rosuvastatin 20 mg tablet 20 mg PO DAILY Qty: 90 RF: 3 alcohol swabs [Alcohol Prep Pads] Pads, Medicated 1 pad TOPICAL BID Qty: 100 RF: 5 glucometer 1 ea MC BID Qty: 1 RF: 0 (DME) lancets See Rx Instructions .Route .MEDSUPPLY Qty: 100 RF: 5 (DME) Test strips See Rx Instructions .Route .MEDSUPPLY Qty: 100 RF: 5 aspirin 81 MG tablet 81 mg PO DAILY@0800 RF: 0 nitroglycerin 0.4 mg tablet, sublingual 0.4 mg SUBLINGUAL Q5-15M PRN (Reason: Chest Pain) Qty: 25 RF: 3 Trulicity 0.75 mg/0.5 mL pen injector 0.75 mg SC QWEEK Qty: 1 RF: 1 Primary Care Provider: Xiomara Chambers Referrals: Xiomara Chambers MD [Primary Care Provider] -
[2021-09-13 19:49] LABS: Absolute Lymphocyte Count 2.43 X10^3/uL (0.83-4.51); Absolute Neutrophil Count 4.6 X10^3/uL (2.0-7.7); Basophil# 0.02 X10^3/uL; Basophil% 0.3 % (0-1); Eosinophil# 0.04 X10^3/uL; Eosinophils% 0.5 % (0-5); Hemoglobin 13.4 g/dL (13.0-16.5); Lymphocyte # 2.43 X10^3/ul (0.83-4.51); Lymphocyte % 31.6 % (19-41); Mean Corp Hgb Conc 33.5 g/dL (32-36); Mean Corpuscular Hgb 28.9 pg (27.0-32.0); Mean Corpuscular Volume 86.2 fL (80-94); Monocyte% 7.8 % (0-10); NRBC Flagged by Analyzer 0 % (0-5); Neutrophil # 4.59 X10^3/uL (2.7-7.7); Neutrophil % 59.5 % (47-70); Platelet Count 359 K/mm3 (150-450); RBC Distribution Width CV 13.2 % (11.6-14.6); RBC Distribution Width SD 41.1 fl (35.1-43.9); Red Blood Count 4.64 M/mm3 (4.6-6.2); White Blood Count 7.7 K/mm3 (4.4-11.0)
--- NOTE | 2021-09-13 19:57 | RAD_ITS ---
STUDY: X-RAY CHEST REASON FOR EXAM: Male, 61 years old. CHEST PAIN Dyspnea and rales TECHNIQUE: XR Chest 1 View COMPARISON: 9.8.17 FINDINGS: There are bilateral pleural effusions. There are bilateral infiltrates. Normal size heart. Normal mediastinum and salima. Normal visualized pulmonary arteries. There is atherosclerotic calcification of the aortic arch with tortuosity. There are diffuse degenerative changes of the visualized thoracic spine. There is degenerative osteoarthritis of the bilateral shoulders. There is no demonstrated abnormality of the visualized soft tissue structures of the upper abdomen. RAD/Chest 1 View (Portable) IMPRESSION: There are bilateral pleural effusions. There are bilateral infiltrates. Electronically Signed: Buck Hodge MD at 20:14 EST ,
[2021-09-13 20:06] LABS: AST(SGOT) 8 U/L (15-37); Alanine Aminotransfer ALT/SGPT 10 U/L (16-61); Albumin, Serum 2.3 g/dL (3.2-5.0); Alkaline Phosphatase 125 U/L (45-117); Anion Gap 6 (5-15); BUN 18 mg/dL (7-18); BUN/Creat Ratio 24.3 RATIO (10-20); Bilirubin, Direct 0.11 mg/dL (0.00-0.30); Calcium,Total 9.4 mg/dL (8.5-10.1); Chloride 102 mmol/L (98-107); Creatinine, Serum 0.74 mg/dL (0.70-1.30); EST Glomerular Filtration Rate 115 mL/min (>60); Est Glom Filt Rate - Afr Amer 139 mL/min (>60); Estimated Creatinine Clearance 72.41 ml/min; Globulin 5.4 g/dL (2.2-4.2); Glucose 320 mg/dL (74-106); Potassium 4.4 mmol/L (3.5-5.1); Protein, Total 7.7 g/dL (6.4-8.2); Sodium Level 137 mmol/L (136-145)
[2021-09-13 20:10] LABS: BNP,B-Type NATRIURETIC PEPTIDE 909.7 pg/mL (0-100); Lactic Acid 1.8 mmol/L (0.4-1.9)
--- NOTE | 2021-09-13 22:49 | PCM.HP.STD ---
Documented by User: MAGALIS Tyson 09/13/21 23:06 HPI - General General Date of Admission: 09/13/21 Date of Service: 09/13/21 Chief Complaint: Shortness of breath HPI Narrative JC LITTLE, is a 61 M who presents with complaints of shortness of breath which is gradually gotten worse over the past few days. Patient states that his shortness of breath is worsened when he lays flat. Patient reports that he has a history of CHF, hypertension, CAD, and diabetes mellitus type 2. Patient states that he quit taking any treatment for his diabetes because the damage is done and I am not messing around with it anymore. Patient states that approximately 1 month ago everyone in his household got Covid and around that time is when patient quit taking his medications. Patient follows with Dr. Alvarenga and is set to see him in November for his yearly follow-up. COUNTS INCLUDE 234 BEDS AT THE [facility] Medical History Arterial stenosis Atherosclerotic heart disease of [place] coronary artery without angina pectoris Bilateral carotid artery stenosis Bruit of right carotid artery Cardiomyopathy Cardiomyopathy in other diseases classified elsewhere CHF (congestive heart failure) Chronic systolic (congestive) heart failure Claudication Essential hypertension HTN (hypertension) Mitral valvular disorder Old myocardial infarction Peripheral vascular disease Pure hypercholesterolemia Stenosis of right carotid artery Type 2 diabetes mellitus Home Medications aspirin 81 mg PO DAILY@0800 04/16/17 [History Last Taken 04/17/17] nitroglycerin 0.4 mg sublingual tablet 0.4 mg SUBLINGUAL Q5-15M PRN #25 tab 06/16/20 [Rx Last Taken Unknown] gabapentin 100 mg capsule 100 mg PO TID #90 cap 06/17/20 [Rx Last Taken Unknown] metformin 500 mg tablet 500 mg PO BID #180 tab 06/17/20 [Rx Last Taken Unknown] collagenase clostridium histo. 250 unit/gram topical ointment 1 applic TOPICAL DAILY #30 g 09/02/20 [Rx Last Taken Unknown] sodium chloride 0.9 % irrigation solution 1 irrig TOPICAL DAILY #500 ml 09/02/20 [Rx Last Taken Unknown] dulaglutide 0.75 mg/0.5 mL subcutaneous pen injector 0.75 mg SC QWEEK #1 ml 09/06/20 [Rx Last Taken Unknown] Test strips #100 ea 09/30/20 [Rx Last Taken Unknown] alcohol swabs 1 pad TOPICAL BID #100 ea 09/30/20 [Rx Last Taken Unknown] glucometer 1 ea MC BID #1 device 09/30/20 [Rx Last Taken Unknown] lancets #100 ea 09/30/20 [Rx Last Taken Unknown] carvedilol 6.25 mg tablet 6.25 mg PO BID #180 tab 01/26/21 [Rx Last Taken Unknown] isosorbide mononitrate 30 mg tablet,extended release 24 hr 30 mg PO QAM #90 tab 01/26/21 [Rx Last Taken Unknown] rosuvastatin 20 mg tablet 20 mg PO DAILY #90 tab 01/26/21 [Rx Last Taken Unknown] Allergy/AdvReac Type Severity Reaction Status Date / Time Penicillins Allergy Hives Verified 09/13/21 18:44 acetaminophen [From Percocet] AdvReac Other Verified 09/13/21 18:44 oxycodone HCl [From Percocet] AdvReac Other Verified 09/13/21 18:44 Family History Grandfather Myocardial infarction Father Myocardial infarction Heart disease Mother Diabetes CVA (cerebral vascular accident) Myocardial infarction CAD (coronary artery disease) Hypertension Brother CAD (coronary artery disease) Hx CABG, cardiac stents (05-17) Myocardial infarction Brother Family history of brain aneurysm removed Brother CAD (coronary artery disease) hx cardiac stents Sister Diabetes Sister Diabetes Surgical History H/O percutaneous transluminal coronary angioplasty History of tonsillectomy Presence of stent in coronary artery (~03/27/08) S/P BKA (below knee amputation) (~05/22/19) Social History household members: family Smoking Status: Current every day smoker tobacco type: cigarettes alcohol intake: never substance use type: does not use caffeine: Yes Type: carbonated beverages Number of servings: 2 what type of physical activity do you participate in: walking frequency: daily seatbelt use: never do you feel safe at home: Yes ROS Constitutional Constitutional: Denies anorexia, chills, fatigue, fever(s), malaise or weakness Cardiovascular Cardiovascular: Denies chest pain, edema, palpitations or syncope Respiratory/Chest Respiratory/Chest: Reports cough, dyspnea on exertion and shortness of breath with exertion Gastrointestinal Gastrointestinal: Denies abdominal pain, constipation, diarrhea, nausea or vomiting Genitourinary Genitourinary: Denies dysuria Musculoskeletal Musculoskeletal: Denies back pain, extremity pain, joint pain or joint stiffness Integumentary Integumentary: Denies dry skin Neurologic Neurologic: Denies abnormal gait, abnormal speech, confusion or dizziness Psychiatric Psychiatric: Denies anxiety or depression Endocrine Endocrinology: Denies change in body appearance Hematologic/Lymphatic Hematologic/Lymphatic: Denies anemia or easy bleeding Vital Signs Vital Signs Vital Signs: 09/13/21 18:44 09/13/21 19:30 09/13/21 20:43 Temperature 98.1 F Temperature Source Temporal Pulse Rate 125 H 115 H Respiratory Rate 22 H 18 Respiratory Effort Normal Non-Labored Respiratory Depth Normal Respiratory Pattern Normal Blood Pressure 120/81 H 118/80 Blood Pressure Mean 94 92 Pulse Ox 100 95 Oxygen Delivery Method Room Air Room Air Room Air 09/13/21 22:00 09/13/21 22:31 Temperature 97.2 F L Temperature Source Temporal Pulse Rate 100 89 Respiratory Rate 15 15 Respiratory Effort Respiratory Depth Respiratory Pattern Blood Pressure 98/79 Blood Pressure Mean 85 Pulse Ox 98 97 Oxygen Delivery Method Room Air Room Air Weight Weight: 105 lb Body Mass Index (BMI) 15.0 Physical Exam Const alert, oriented x3 and no apparent distress General Appearance: cooperative HEENT normocephalic and head/scalp atraumatic Eyes conjunctivae normal and no scleral icterus Neck supple General: trachea midline Lymph Lymphatic: no lymphadenopathy noted Resp normal respiratory effort and normal air movement Auscultation: crackles bilateral lower Cardio regular rate, regular rhythm, S1 normal heart sound, S2 normal heart sound and peripheral pulses 2+ throughout GI normal to inspection, nondistended, normoactive bowel sounds, soft to palpation and non-tender Extremity normal capillary refill and no clubbing, cyanosis or edema Extremity Narrative: Patient has left lower leg amputation below the knee. General Extremity: amputation Skin Skin Narrative: Patient noted to have multiple abrasions and scratches to bilateral legs and arms. General Skin Exam: turgor normal Neuro no focal motor deficits and no sensory deficits noted Speech: speech normal Motor Exam: Negative for general weakness Psych thought process normal, cooperative and affect normal Appearance: appropriate Results Lab / Micro Data Result Diagrams: 09/13/21 19:35 09/13/21 19:35 Labs: Laboratory Results - last 24 hr 09/13/21 19:35: WBC 7.7, RBC 4.64, Hgb 13.4, Hct 40.0, MCV 86.2, MCH 28.9, MCHC 33.5, RDW Std Deviation 41.1, RDW Coeff of [place] 13.2, Plt Count 359, MPV 11.0, Immature Gran % (Auto) 0.300, Neut % (Auto) 59.5, Lymph % (Auto) 31.6, [place] % (Auto) 7.8, Eos % (Auto) 0.5, Baso % (Auto) 0.3, Absolute Neuts (auto) 4.6, Absolute Lymphs (auto) 2.43, Nucleated RBC % 0 09/13/21 19:35: Sodium 137, Potassium 4.4, Chloride 102, Carbon Dioxide 29.0, Anion Gap 6, BUN 18, Creatinine 0.74, Estim Creat Clear Calc 72.41, Est GFR (MDRD) Af Amer 139, Est GFR (MDRD) Non-Af 115, BUN/Creatinine Ratio 24.3 H, Glucose 320 H, Calcium 9.4, Total Bilirubin 0.30, Direct Bilirubin 0.11, AST 8 L, ALT 10 L, Alkaline Phosphatase 125 H, Total Protein 7.7, Albumin 2.3 L, Globulin 5.4 H 09/13/21 19:35: Lactic Acid 1.8 09/13/21 19:35: B-Natriuretic Peptide 909.7 H Micro: Microbiology 09/13/21 20:40 Nasal Secretion SARS-CoV-2 Antigen (Rapid) - Final Radiology Impression Chest X-Ray 09/13/21 19:57 IMPRESSION: There are bilateral pleural effusions. There are bilateral infiltrates. Electronically Signed: Buck Hodge MD at 20:14 EST , Assessment & Plan Assessment/Plan (1) Bilateral pulmonary infiltrates on CXR: (2) Bilateral pleural effusion: (3) Unintended weight loss: PLAN: 1. Acute on chronic exacerbation HFrEF -Admit to PCU for cardiac monitoring -Echocardiogram ordered for a.m. -Daily weights -Trend cardiac enzymes -Elevate bilateral lower extremities -Strict intake and output -PT and OT to eval and treat -Oxygen per protocol, patient currently on room air -IV Lasix ordered -CBC, CMP, lipid profile, TSH ordered for a.m. -Continue carvedilol -BNP 909.7 -Echocardiogram completed on 08/27/2020 demonstrates EF 20% with severe systolic dysfunction. Patient was fitted for a LifeVest and wore it however patient states that he has not had a done in some time and does not believe that he needs it. 2. Bilateral pulmonary infiltrates -Patient received azithromycin and Levaquin in the ER, levofloxacin continued -As needed albuterol treatments ordered -Encourage incentive spirometry -Sputum culture ordered x1 strep and Legionella antigens ordered, procalcitonin 3. Hypertension -Continue isosorbide, hold for systolic BP less than 100 -Vital signs per protocol, currently stable 4. Diabetes mellitus type 2 -Patient reports that he is not compliant with his home medication regimen and has not been taking medications for diabetes for some time. -ACH S blood sugars with sliding scale insulin ordered -Hemoglobin A1c ordered 5. Tobacco use -Inpatient smoking cessation ordered -1 to 1-1/2 pack/day smoker currently DVT prophylaxis-subcu Lovenox This patient was seen by MAGALIS Tyson under the supervision of . [] minutes spent in clinical coordination of patient's plan of care. Documented by User: Dr. Alecia Robles MD 09/14/21 00:46 HPI - General General Date of Admission: 09/13/21 COUNTS INCLUDE 234 BEDS AT THE [facility] Medical History Arterial stenosis Atherosclerotic heart disease of [place] coronary artery without angina pectoris Bilateral carotid artery stenosis Bruit of right carotid artery Cardiomyopathy Cardiomyopathy in other diseases classified elsewhere CHF (congestive heart failure) Chronic systolic (congestive) heart failure Claudication Essential hypertension HTN (hypertension) Mitral valvular disorder Old myocardial infarction Peripheral vascular disease Pure hypercholesterolemia Stenosis of right carotid artery Type 2 diabetes mellitus Home Medications aspirin 81 mg PO DAILY@0800 04/16/17 [History Last Taken 04/17/17] nitroglycerin 0.4 mg sublingual tablet 0.4 mg SUBLINGUAL Q5-15M PRN #25 tab 06/16/20 [Rx Last Taken Unknown] gabapentin 100 mg capsule 100 mg PO TID #90 cap 06/17/20 [Rx Last Taken Unknown] metformin 500 mg tablet 500 mg PO BID #180 tab 06/17/20 [Rx Last Taken Unknown] collagenase clostridium histo. 250 unit/gram topical ointment 1 applic TOPICAL DAILY #30 g 09/02/20 [Rx Last Taken Unknown] sodium chloride 0.9 % irrigation solution 1 irrig TOPICAL DAILY #500 ml 09/02/20 [Rx Last Taken Unknown] dulaglutide 0.75 mg/0.5 mL subcutaneous pen injector 0.75 mg SC QWEEK #1 ml 09/06/20 [Rx Last Taken Unknown] Test strips #100 ea 09/30/20 [Rx Last Taken Unknown] alcohol swabs 1 pad TOPICAL BID #100 ea 09/30/20 [Rx Last Taken Unknown] glucometer 1 ea MC BID #1 device 09/30/20 [Rx Last Taken Unknown] lancets #100 ea 09/30/20 [Rx Last Taken Unknown] carvedilol 6.25 mg tablet 6.25 mg PO BID #180 tab 01/26/21 [Rx Last Taken Unknown] isosorbide mononitrate 30 mg tablet,extended release 24 hr 30 mg PO QAM #90 tab 01/26/21 [Rx Last Taken Unknown] rosuvastatin 20 mg tablet 20 mg PO DAILY #90 tab 01/26/21 [Rx Last Taken Unknown] Allergy/AdvReac Type Severity Reaction Status Date / Time Penicillins Allergy Hives Verified 09/13/21 18:44 acetaminophen [From Percocet] AdvReac Other Verified 09/13/21 18:44 oxycodone HCl [From Percocet] AdvReac Other Verified 09/13/21 18:44 Family History Grandfather Myocardial infarction Father Myocardial infarction Heart disease Mother Diabetes CVA (cerebral vascular accident) Myocardial infarction CAD (coronary artery disease) Hypertension Brother CAD (coronary artery disease) Hx CABG, cardiac stents (10-12) Myocardial infarction Brother Family history of brain aneurysm removed Brother CAD (coronary artery disease) hx cardiac stents Sister Diabetes Sister Diabetes Surgical History H/O percutaneous transluminal coronary angioplasty History of tonsillectomy Presence of stent in coronary artery (~03/27/08) S/P BKA (below knee amputation) (~05/22/19) Social History household members: family Smoking Status: Current every day smoker tobacco type: cigarettes alcohol intake: never substance use type: does not use caffeine: Yes Type: carbonated beverages Number of servings: 2 what type of physical activity do you participate in: walking frequency: daily seatbelt use: never do you feel safe at home: Yes Results Lab / Micro Data Result Diagrams: 09/13/21 19:35 09/13/21 19:35
[2021-09-13] MEDS: levoFLOXacin IV 750 MG/150 ML BAG 100 MG IV (23:09)
--- NOTE | 2021-09-13 23:24 | ECHOD_ITS ---
Reason For Study: CHF Procedure This was a 2D Doppler, Color Flow transthoracic echocardiogram. The exam was of adequate technical quality. Exam performed portable in patient room. Left Ventricle Normal LV size. Mid cavitary false tendon noted. Severe segmental systolic dysfunction (see wall motion). The estimated ejection fraction is 15 %. Unable to assess diastolic dysfunction. Anterio- Basal: Severely hypokinetic. Lateral-Basal: Severely Hypokinetic. Posterior-Basal: Severely hypokinetic. Infero-Basal: Akinetic. Basal inferoseptal: Akinetic. Basal anteroseptal: Akinetic. Mid-Anterior : Akinetic. Mid-Lateral : Severely Hypokinetic. Mid-Posterior: Akinetic. Mid-Inferior: Akinetic. Mid-inferoseptal : Akinetic. Mid-anteroseptal : Akinetic. Anterior [place] : Akinetic. Inferior [place] : Akinetic. Lateral [place] : Severely Hypokinetic. Septal [place] : Severely Hypokinetic. Right Ventricle Normal RV size. Normal systolic function. Atria The left atrium is mildly enlarged. Normal right atrium. Aneurysmal atrial septum. No doppler evidence for ASD. Mitral Valve There is no mitral annular calcification. Mild papillary muscle dysfunction of the mitral valve. Moderately severe (3+) eccentric mitral valve insufficiency. Tricuspid Valve Normal tricuspid valve. Trivial tricuspid valve insufficiency. Unable to estimate RV systolic pressure due to insufficient tricuspid regurgitant envelope. Aortic Valve Trisinus/trileaflet aortic valve. Mild focal aortic valve thickening. Mild focal aortic valve calcification. Pulmonic Valve The pulmonic valve is not well visualized. Mild (1+) pulmonic valve insufficiency. Great Vessels The aortic root is not well visualized. Pericardium/Pleural Trivial pericardial effusion. There are no echocardiographic indications of cardiac tamponade. Echo lucency compatible with a large appearing pleural effusion. MMode/2D Measurements & Calculations LVIDd: 4.9 cm IVSd: 0.93 cm LA dimension: 4.0 cm LVIDs: 4.7 cm LVPWd: 1.4 cm RVDd: 3.6 cm FS: 5.1 % LAV(MOD-bp): 57.8 ml LA A4 area: 20.3 cm2 RA A4 area: 11.4 cm2 LAV(MOD-bp) Indexed: 36.4 ml/m2 LAV(MOD-sp2): 56.4 ml LAV(MOD-sp4): 59.3 ml Doppler Measurements & Calculations Med Peak E' Cl: 3.8 cm/sec Ao V2 max: 93.2 cm/sec LV V1 max: 72.7 cm/sec Ao max P.5 mmHg LV V1 max P.1 mmHg Ao V2 mean: 61.7 cm/sec LV V1 mean P.94 mmHg Ao mean P.8 mmHg LV V1 mean: 43.7 cm/sec Ao V2 VTI: 14.3 cm LV V1 VTI: 10.0 cm MR max cl: 447.7 cm/sec PA V2 max: 63.6 cm/sec PI end-d cl: 210.9 cm/sec MR max P.2 mmHg MR mean cl: 327.4 cm/sec MR mean P.9 mmHg MR VTI: 129.7 cm ECHO/Echo Complete Interpretation Summary Severe segmental systolic dysfunction (see wall motion). The estimated ejection fraction is 15 %. Mid cavitary false tendon noted. The left atrium is mildly enlarged. Aneurysmal atrial septum. Mild papillary muscle dysfunction of the mitral valve. Moderately severe (3+) eccentric mitral valve insufficiency. Trivial tricuspid valve insufficiency. Mild focal aortic valve thickening. Mild focal aortic valve calcification. Mild (1+) pulmonic valve insufficiency. Trivial pericardial effusion. There are no echocardiographic indications of cardiac tamponade. Echo lucency compatible with a large appearing pleural effusion. Unable to estimate RV systolic pressure due to insufficient tricuspid regurgita nt envelope. Unable to assess diastolic dysfunction. Ordering Physician: Alecia Robles Referring Physician: Xiomara Chambers Performed By: Mumtaz Marte RCS
[2021-09-13 23:31] LABS: Procalcitonin < 0.01 ng/mL (0.00-0.09)
[2021-09-14] VITALS (12 sets, daily range): BP systolic 89–104; BP diastolic 53–67; PULSE 62–117; RESP 15–20; TEMP 35.8–36.7; O2SAT 94–96
[2021-09-14] MEDS: Furosemide 20 MG/2 ML VIAL IV ×3 (00:11→16:24)
[2021-09-14] MEDS: 0.9% Saline Lock 10 ML Syringe IV ×2 (00:11→22:10)
[2021-09-14 00:59] LABS: Troponin-I HS 258 pg/mL (3.0-78.0)
[2021-09-14 03:18] LABS: Troponin-I HS 230 pg/mL (3.0-78.0)
[2021-09-14] MEDS: Gabapentin 100 MG Capsule PO ×3 (05:22→20:21)
[2021-09-14 06:17] LABS: Absolute Lymphocyte Count 1.75 X10^3/uL (0.83-4.51); Absolute Neutrophil Count 3.8 X10^3/uL (2.0-7.7); Basophil# 0.02 X10^3/uL; Basophil% 0.3 % (0-1); Eosinophil# 0.02 X10^3/uL; Eosinophils% 0.3 % (0-5); Hematocrit 33.4 % (40-54); Hemoglobin 10.9 g/dL (13.0-16.5); Lymphocyte # 1.75 X10^3/ul (0.83-4.51); Mean Corp Hgb Conc 32.6 g/dL (32-36); Mean Corpuscular Volume 85.9 fL (80-94); Mean Platelet Vol. 11.5 fl (6.2-12.0); Monocyte# 0.46 X10^3/uL; Monocyte% 7.6 % (0-10); NRBC Flagged by Analyzer 0 % (0-5); Neutrophil # 3.77 X10^3/uL (2.7-7.7); Neutrophil % 62.6 % (47-70); Platelet Count 288 K/mm3 (150-450); RBC Distribution Width CV 13.2 % (11.6-14.6); RBC Distribution Width SD 41.2 fl (35.1-43.9); Red Blood Count 3.89 M/mm3 (4.6-6.2)
[2021-09-14] MEDS: Insulin Lispro 100 UNIT/ML INSULN.PEN SC ×3 (06:38→22:13)
[2021-09-14 06:50] LABS: Bedside Glucose 331 mg/dL (70-110)
[2021-09-14 07:10] LABS: ALB/GLOB Ratio 0.4 RATIO (0.9-2.4); AST(SGOT) 9 U/L (15-37); Alanine Aminotransfer ALT/SGPT 10 U/L (16-61); Albumin, Serum 1.9 g/dL (3.2-5.0); Alkaline Phosphatase 110 U/L (45-117); Anion Gap 5 (5-15); BUN 15 mg/dL (7-18); BUN/Creat Ratio 24.4 RATIO (10-20); Calcium,Total 8.5 mg/dL (8.5-10.1); Chloride 100 mmol/L (98-107); Cholesterol 177 mg/dL (200); Creatinine, Serum 0.62 mg/dL (0.70-1.30); EST Glomerular Filtration Rate 142 mL/min (>60); Est Glom Filt Rate - Afr Amer 172 mL/min (>60); Estimated Creatinine Clearance 93.99 ml/min; Globulin 4.9 g/dL (2.2-4.2); Glucose 309 mg/dL (74-106); High Density Lipoprotein 26 mg/dL; Potassium 4.1 mmol/L (3.5-5.1); Protein, Total 6.8 g/dL (6.4-8.2); Sodium Level 134 mmol/L (136-145); Thyroid Stim Hormone (TSH) 2.67 uIU/mL (0.358-3.74); Triglycerides 118 mg/dL; Troponin-I HS 190 pg/mL (3.0-78.0); Very Low Density Lipoprotein 24 mg/dL (5-40)
[2021-09-14 08:10] LABS: Hemoglobin A1c 12.2 % (3.8-5.6)
[2021-09-14] MEDS: Aspirin E.C. 81 MG Tablet PO (10:13)
[2021-09-14] MEDS: Glucerna Shake 120 ML LIQUID PO (10:13)
[2021-09-14] MEDS: Enoxaparin 30 MG/0.3 ML Syringe SC (10:14)
[2021-09-14] MEDS: Carvedilol 6.25 MG Tablet PO ×2 (10:25→20:21)
--- NOTE | 2021-09-14 11:05 | CASEMGMT ---
KARL SCHULZ assessment: Face to Face with patient for initial transition planning/care coordination assessment. KARL SCHULZ introduced self and role at [facility], pt voices understanding and consents to assessment. Pt is lying in bed in no distress on room air. Pt is A/Ox4 and answers all questions appropriately. Care providers, pharmacy, and demographics verified. Presentation: SOB x one week, possibly lice Admitting dx: CAP, CHF exac PCP: Reyes Specialists: Colette, cardio [facility]acy[facility] Insurance: [facility] A/B, SCOTT Prescription Benefit: SCOTT Living Will/HPOA: Pt does not have LW/HPOA but would like to complete forms at this time as long as someone will explain them to him as he states he has difficulty reading. LNOK: Shavonne Moreno, daughter; Germaine Garcia, sister Living Arrangements: Pt lives with daughter and 3 grandchildren(ages 5,2, and 10 months) in mobile home with steps in. Pt states scoots up steps to get in d/t left BKA. Pt states is mostly independent with ADL's. Transportation: Pt states neither him or his daughter drive. Pt states his ex- drives or he uses [employer] transport but states they will not bring him home from appt's. Pt provided [facility] van transport info. DME/HHC: Pt has crutches, prosthesis, and w/c. Pt states does not wear prosthesis as 'no one ever showed me how.' Pt states no need for any further DME. Pt has been to a SNF in [facility] in the past but states no hx of HHC. Pt states no concerns with going home at time of discharge. Pt is on disability. Pt states smokes 1.5 pack/day and does not drink ETOH. Pt states no further concerns/needs. CM to follow for any further discharge planning/needs. Advised pt to ask for CM if any further questions/concerns/needs arise, voices understanding. Pt Goal: Home Plan[place] KARL SCHULZ
--- NOTE | 2021-09-14 11:30 | CASEMGMT ---
Palliative screening tool completed and pt qualifies for palliative referral. Dr. Parrish aware but states pt is not ready for palliative referral at this time. Renee BARAJAS CM
[2021-09-14 11:36] LABS: Bedside Glucose 210 mg/dL (70-110)
--- NOTE | 2021-09-14 12:51 | PCM.PN.HOSP ---
Documented by User: Cem NOBLES 09/14/21 13:08 Subjective Subjective Patient is a 61-year-old male comfortably resting in bed, alert and orient x3. Patient reports that his shortness of breath has improved from admission. Denies development of any new symptoms overnight. Does not appear in acute distress. Objective Data Objective Data Vital Signs: Vital Signs Temp Pulse Resp BP Pulse Ox 98.1 F 106 H 18 96/67 94 09/14/21 11:35 09/14/21 11:35 09/14/21 11:35 09/14/21 11:35 09/14/21 11:35 Oxygen Delivery Method Room Air Weight: 114 lb 3.191 oz Body Mass Index (BMI) 16.4 Intake & Output: Intake and Output for Last 24 Hours 09/12/21 09/13/21 09/14/21 23:59 23:59 23:59 Intake Total 495 / 495 390 / 390 Output Total 250 / 250 Balance 495 / 495 140 / 140 Medical Nutrition Assessment Dietitian: Malnutrition Criteria Met Start: 09/14/21 12:43 Freq: Status: Active Protocol: Document 09/14/21 12:43 AG (Rec: 09/14/21 12:43 AG [id number]) Nutrition Malnutrition Evidence of Malnutrition Exists Yes Malnutrition (severe): Chronic Evidenced By Suboptimal Energy Intake ( Severe),Physical Changes ( Severe) Clinical Problem Chronic Disease or Condition Related Malnutrition Etiology severe, chronic malnutrition r /t inadequate energy intake Signs/Symptoms as evidenced by estimated PO intake meeting <75% of estimated energy needs >3 months, severe muscle wasting/ fat loss in clavicle, acromion , scapular, orbital, and temporal region per physical exam Status Active Problem Recommendation Dietitian Recommendations/Changes will change diet to regular, no added salt given severe malnutrition; if pt elects to refuse insulin, will adjust diet accordingly. Will recommend kitchen staff to encourage 4-5 servings of CHO/ meal. Will increase Glucerna to 4x/day and fortify foods when possible. Recommend close monitoring of electrolytes given risk for refeeding syndrome. Lab / Micro Data Result Diagrams: 09/14/21 05:56 09/14/21 05:56 Labs: Laboratory Results - last 24 hr 09/13/21 19:35: WBC 7.7, RBC 4.64, Hgb 13.4, Hct 40.0, MCV 86.2, MCH 28.9, MCHC 33.5, RDW Std Deviation 41.1, RDW Coeff of [place] 13.2, Plt Count 359, MPV 11.0, Immature Gran % (Auto) 0.300, Neut % (Auto) 59.5, Lymph % (Auto) 31.6, Dickenson % (Auto) 7.8, Eos % (Auto) 0.5, Baso % (Auto) 0.3, Absolute Neuts (auto) 4.6, Absolute Lymphs (auto) 2.43, Nucleated RBC % 0 09/13/21 19:35: Sodium 137, Potassium 4.4, Chloride 102, Carbon Dioxide 29.0, Anion Gap 6, BUN 18, Creatinine 0.74, Estim Creat Clear Calc 72.41, Est GFR (MDRD) Af Amer 139, Est GFR (MDRD) Non-Af 115, BUN/Creatinine Ratio 24.3 H, Glucose 320 H, Calcium 9.4, Total Bilirubin 0.30, Direct Bilirubin 0.11, AST 8 L, ALT 10 L, Alkaline Phosphatase 125 H, Total Protein 7.7, Albumin 2.3 L, Globulin 5.4 H 09/13/21 19:35: Lactic Acid 1.8 09/13/21 19:35: B-Natriuretic Peptide 909.7 H 09/13/21 22:58: Procalcitonin < 0.01 09/14/21 00:13: Troponin I High Sens 258 H* 09/14/21 02:25: Troponin I High Sens 230 H* 09/14/21 05:56: WBC 6.0, RBC 3.89 L, Hgb 10.9 L, Hct 33.4 L, MCV 85.9, MCH 28.0, MCHC 32.6, RDW Std Deviation 41.2, RDW Coeff of [place]da 13.2, Plt Count 288, MPV 11.5, Immature Gran % (Auto) 0.200, Neut % (Auto) 62.6, Lymph % (Auto) 29.0, Dickenson % (Auto) 7.6, Eos % (Auto) 0.3, Baso % (Auto) 0.3, Absolute Neuts (auto) 3.8, Absolute Lymphs (auto) 1.75, Nucleated RBC % 0 09/14/21 05:56: Sodium 134 L, Potassium 4.1, Chloride 100, Carbon Dioxide 29.0, Anion Gap 5, BUN 15, Creatinine 0.62 L, Estim Creat Clear Calc 93.99, Est GFR (MDRD) Af Amer 172, Est GFR (MDRD) Non-Af 142, BUN/Creatinine Ratio 24.4 H, Glucose 309 H, Calcium 8.5, Total Bilirubin 0.30, AST 9 L, ALT 10 L, Alkaline Phosphatase 110, Troponin I High Sens 190 H*, Total Protein 6.8, Albumin 1.9 L, Globulin 4.9 H, Albumin/Globulin Ratio 0.4 L, Triglycerides 118, Cholesterol 177, LDL Cholesterol 127, VLDL Cholesterol 24, HDL Cholesterol 26 L, TSH 2.67 09/14/21 05:56: Hemoglobin A1c 12.2 H 09/14/21 06:40: POC Glucose 331 H 09/14/21 11:29: POC Glucose 210 H Micro: Microbiology 09/14/21 01:22 Urine, Clean Catch Legionella Antigen - Final 09/14/21 01:22 Urine, Clean Catch Streptococcus pneumoniae Antigen (M - Final 09/13/21 20:40 Nasal Secretion SARS-CoV-2 Antigen (Rapid) - Final Radiography Diagnostic Testing: Radiology Impression Chest X-Ray 09/13/21 19:57 IMPRESSION: There are bilateral pleural effusions. There are bilateral infiltrates. Electronically Signed: Buck Hodge MD at 20:14 EST Reading Location ID and State: [facility] / [place] , Service support , Echocardiogram 09/13/21 23:24 Interpretation Summary Severe segmental systolic dysfunction (see wall motion). The estimated ejection fraction is 15 %. Mid cavitary false tendon noted. The left atrium is mildly enlarged. Aneurysmal atrial septum. Mild papillary muscle dysfunction of the mitral valve. Moderately severe (3+) eccentric mitral valve insufficiency. Trivial tricuspid valve insufficiency. Mild focal aortic valve thickening. Mild focal aortic valve calcification. Mild (1+) pulmonic valve insufficiency. Trivial pericardial effusion. There are no echocardiographic indications of cardiac tamponade. Echo lucency compatible with a large appearing pleural effusion. Unable to estimate RV systolic pressure due to insufficient tricuspid regurgitant envelope. Unable to assess diastolic dysfunction. Ordering Physician: Alecia Robles Referring Physician: Xiomara Chambers Performed By: Mumtaz Marte RCS Physical Exam Const alert, oriented x3 and no apparent distress HEENT head/scalp atraumatic Head and Scalp: normocephalic Eyes PERRL and conjunctivae normal Neck no lymphadenopathy, supple and no JVD Resp normal respiratory effort, no retractions, no use of accessory muscles and clear to auscultation bilaterally Cardio no murmurs and no JVD Rate: tachycardic Rhythm: regular rhythm and abnormal rhythm GI normal to inspection, nondistended, normoactive bowel sounds Extremity normal to inspection, full ROM and no clubbing, cyanosis or edema Skin no rashes or lesions noted Neuro CN's II-XII intact bilaterally Psych affect normal Assessment & Plan Assessment/Plan (1) Bilateral pulmonary infiltrates on CXR: (2) Bilateral pleural effusion: (3) Unintended weight loss: (4) Heart failure with reduced ejection fraction: PLAN: Day 1 Discharge planning: To be determined. 1) acute on chronic exacerbation of HFrEF Updated echocardiogram demonstrates severe systolic dysfunction, an EF of 15% and moderately severe mitral valve insufficiency. Ejection fraction appears worse from previous study obtained in August 2020. Patient is known to Dr. Alvarenga who has agreed to see patient while in hospital, continue IV Lasix, continue to monitor I's and O's, continue to monitor daily weights, continue fluid restriction. 2) elevated cardiac enzymes Denies chest pain and reports improvement in shortness of breath. Cardiac enzymes elevated at 258, 230 and 198 respectively. EKG on admission demonstrated sinus tachycardia with nonspecific ST and T wave abnormalities in the anterior and lateral leads. Cardiology consult obtained as above. 3) bilateral pulmonary infiltrates Seen on chest x-ray on admission. Patient reports improvement in shortness of breath. Vital signs are stable and patient is currently satting 94% on room air. Rapid Covid is negative, Legionella and strep pneumo urinary antigen is negative, blood cultures ordered/pending. Continue levofloxacin. 4) hypertension Continue Lasix and isosorbide, hold parameters in place. 5) DM2 Hemoglobin A1c is 12.2, not surprising as patient admits that he has stopped taking his diabetic meds and has not been taking for some time. Will need initiation of diabetic regimen on discharge, initiate Lantus 10 units daily, continue Accu-Cheks with sliding scale insulin. DVT prophylaxis - Lovenox Patient seen by Cem Santizo PA-C, under the supervision of Dr. Parrish. Documented by User: Dr. Marcello Parrish MD 09/14/21 13:57 Objective Data Lab / Micro Data Result Diagrams: 09/14/21 05:56 09/14/21 05:56 Assessment & Plan Addt'l Comments This patient was seen in conjunction with Cem Santizo PA-C. I have independently interviewed and examined the patient and reviewed pertinent historical, laboratory, and other data. Please refer to Cem Santizo PA-C's note for details of this patient's presentation, findings, and recommendations. I have reviewed Cem Santizo PA-C's note and concur with documented findings. In brief, patient is a 61-year-old gentleman with history of ischemic cardiomyopathy with an ejection fraction of 20% who presented with progressive shortness of breath. An assessment of acute on chronic congestive heart failure with reduced ejection fraction made admitted to a monitored bed for subsequent management Physical Examination: GENERAL: Frail looking HEENT: Atraumatic; EYES; Anicteric, Normal Conjunctiva NECK; supple, normal thyroid, RESPIRATORY: Diminished to auscultation CARDIOVASCULAR: Regular S1 S2, GI: soft, normoactive bowel sounds, : No Renal angle tenderness; EXTREMITIES: No edema, no clubbing, MUSCULOSKELETAL: no muscle wasting NEURO: Awake; no lateralizing signs. SKIN: No Rash PSYCH; Flat affect Assessment: 1. Acute congestive heart failure with reduced ejection fraction 2. Ischemic cardiomyopathy 3. Elevated troponin 4. Coronary artery disease with previous PCI with stent to proximal LAD and OM1 with subsequent balloon angioplasty 5. Diabetes mellitus type 2 6. Dyslipidemia 7. Essential hypertension 8. Peripheral neuropathy 9. Severe protein calorie malnutrition Recommendations: 1. I have discussed the results of my overview and impressions with the patient 2. Options for management were reviewed Total time spent by myself and the advanced practice practitioner evaluating patient, reviewing labs, subsequent management decisions, discussion with patient as well as other providers 40 minutes ( 25 of which was spent by myself) Charges/Coding Visit Charges Inpatient E&M: 84552 Subs Hosp L3 Hospital Course Consultations Consultations: Consultations 09/13/21 23:24 Consult: Onc/Wound/system support developer Routine Comment: 09/14/21 10:57 Consult: Cardiology Routine Consulting Provider: Dev Alvarenga Reason for Consult: Elevated cardiac ezymes/worsening EF EMERGENT Consult: No MD Notified: Yes Date Notified: 09/14/21 Time Notified: 10:57 Method of Notification: Provider Initiated
--- NOTE | 2021-09-14 14:17 | CASEMGMT ---
Social Work SW met with pt and assisted in completing advance directives. Pt naming his dgt November as Primary HCPOA and sister Germaine as secondary HCPOA. Living will completed as well at this time. Originals given to pt and copy placed on pt chart. DORITA Gómez
--- NOTE | 2021-09-14 15:11 | WOUNDNOTE ---
wound photo: right lower leg
--- NOTE | 2021-09-14 15:12 | WOUNDNOTE ---
was asked to see patient for scattered scabbed areas to the right lower leg. scabs are dry. there is no sign of infection noted. can leave [employer]. no need for wound care at this time.
--- NOTE | 2021-09-14 18:34 | PCM.CONS.C ---
Assessment & Plan Assessment/Plan (1) Heart failure with reduced ejection fraction: PLAN: The patient presents with findings concerning for acute on chronic systolic mediated CHF. He has undergone noninvasive valuation. His most recent transthoracic echocardiogram is noted and has been compared to his previous studies which have demonstrated similar type findings with respect to his overall LV wall motion and systolic function. The patient has been treated medically and states he has noted improvement in his respiratory status. (2) Atherosclerotic heart disease of [place] coronary artery without angina pectoris: QUALIFIERS: [place] vs. transplanted heart: [place] heart Qualified Code(s): I25.10 - Atherosclerotic heart disease of [place] coronary artery without angina pectoris PLAN: The patient has a history of CAD. He has undergone PCI in the past. He had been referred, per his request, to [facility] in 2016 for consideration for CABG. He elected not to follow through with that at that time. In May 2019 he was evaluated at [facility] for multiple medical issues including his cardiovascular status. At that time he was evaluated by cardiovascular services and had declined evaluation for/proceeding with CABG. Thus he was continued on medical management. (3) H/O percutaneous transluminal coronary angioplasty: PLAN: As noted above the patient has undergone evaluation and care with PCI in the past. His most recent local cardiac catheterization procedure is as noted. As previously noted he was recommended for but declined further evaluation and care with CABG. Thus he continued medical therapy. (4) Cardiomyopathy in other diseases classified elsewhere: PLAN: His overall LV systolic function remains low. His LVEF is similar and/or lower than his previous studies. He does need to continue medical management. He is currently nitrates and he is on low-dose beta-blockers with carvedilol/Coreg. He is also being treated with diuretic therapy based upon his acute on chronic systolic CHF. Additional diuretics with spironolactone/Aldactone can be considered. He can also have an attempt at afterload reducing therapy such as Entresto. His medications would have to be adjusted based upon his response in his vital signs, etc. He may also be a candidate for additional agents such as Farxiga. (5) Abnormal cardiac enzyme level: PLAN: The patient was noted to have elevated troponin I levels. This may be a type II event secondary to his acute on chronic systolic mediated CHF superimposed upon his underlying CAD status and ischemic mediated cardiomyopathy. He does not have ongoing symptoms or associated electrocardiographic findings suggestive of an acute coronary syndrome. At the moment he will continue conservative medical management. (6) Bilateral carotid artery stenosis: PLAN: The patient also has a history of carotid artery stenosis. He had previously been evaluated by peripheral vascular surgery based upon carotid duplex study performed in March 2017 which demonstrated that he had greater than 80% stenosis in the proximal right internal carotid artery and 50 to 69% stenosis in the proximal left internal carotid artery. It does not appear he has had this reassessed locally since that time. (7) Pure hypercholesterolemia: PLAN: He should continue risk factor evaluation and care as he is able and tolerates. (8) Essential hypertension: PLAN: He has a history of hypertension. His blood pressures do need to be monitored to avoid any significant low blood pressure during this time as his medications are adjusted. (9) Type 2 diabetes mellitus: PLAN: He will continue evaluation care per internal medicine. (10) S/P BKA (below knee amputation): PLAN: He is status post BKA at [facility] in May 2019. Addt'l Comments A lengthy conversation was held with the patient regarding his cardiovascular history and current situation/clinical course. The patient states that he would like to pursue additional evaluation care as he would like to be around for period of time to watch his grandchildren grow up. Based upon his complex cardiovascular history this would require continued compliance to medications with adjustment of medications as he is able as noted above. He could be referred back to [facility] for evaluation by the advanced heart failure team and the electrophysiology team as to whether or not he would be considered a candidate for anything above and beyond traditional medical therapy for his heart failure as well as whether he still would be considered a candidate for ICD placement taking into consideration his multiple comorbidities and what appears to be his unfortunate poor prognosis. If the patient is stable with his local hospital course then this referral could be placed as an outpatient as he states he does have family members that could take him there for such an evaluation. The patient was also offered an alternative with respect to continued conservative medical therapy and based upon his overall poor prognosis evaluation by the palliative care/hospice care team. He states at the moment he would rather proceed with an additional evaluation with the hopes of being able to as he put it be around for period of time to watch his grandchildren grow up. This note was generated using a voice recognition system and there may be incorrect words, spelling or punctuation that were not noted when reviewing the office note prior to saving. HPI Consult Data Date of Consult: 09/14/21 HPI Narrative HPI Narrative: CJ LITTLE, is a 61 year old white male who presents for cardiovascular consultation based upon concerns of acute on chronic systolic mediated CHF with a history of underlying CAD, previous PCI, ischemic mediated cardiomyopathy, peripheral vascular disease status post left BKA, hyperlipidemia, hypertension, and diabetes mellitus. The patient states that he has had recurrent symptoms of progressive shortness of breath/dyspnea including orthopnea similar to what he had during his original presentation many years ago. He denied any associated chest discomfort, lower extremity peripheral pitting edema, palpitations, near-syncope or syncope. He lives with his daughter and 3 grandchildren. He states that approximately 1 month ago he believes everybody in the household experienced COVID-19. He noted he had stopped taking his medications. He also had in the past worn a LifeVest which she had discontinued himself. He had noted at 1 point in the past he did not want to proceed with additional diagnostic studies/intervention or placement of an ICD. However, he states based upon his ongoing symptoms he elected to present back to the hospital for further evaluation and now wants to proceed with additional diagnostic studies as well as consideration for ICD placement. Since being in the hospital he had troponins performed which were initially elevated and subsequently decreased. His ECG demonstrated sinus rhythm with a low voltage QRS in the limb leads and an incomplete left bundle branch block pattern. His cardiac rhythm demonstrated sinus rhythm with PVCs. He underwent evaluation with a transthoracic echocardiogram with the results as noted below. Also, based upon concern of any suspicion for an underlying pneumonia contributing to his respiratory issues he was evaluated by internal medicine. He was placed on IV antibiotic therapy. He notes since receiving IV diuretic therapy he does feel better with respect to his respiratory status. [facility] Medical History (Updated 09/14/21 @ 18:[address] Dev Alvarenga MD) Abnormal cardiac enzyme level Arterial stenosis Atherosclerotic heart disease of [place] coronary artery without angina pectoris Bilateral carotid artery stenosis Bruit of right carotid artery Cardiomyopathy Cardiomyopathy in other diseases classified elsewhere CHF (congestive heart failure) Chronic systolic (congestive) heart failure Claudication Essential hypertension HTN (hypertension) Mitral valvular disorder Old myocardial infarction Peripheral vascular disease Pure hypercholesterolemia Stenosis of right carotid artery Type 2 diabetes mellitus Home Medications aspirin 81 mg PO DAILY@0800 09/11/17 [History Last Taken 04/17/17] nitroglycerin 0.4 mg sublingual tablet 0.4 mg SUBLINGUAL Q5-15M PRN #25 tab 06/16/20 [Rx Last Taken Unknown] gabapentin 100 mg capsule 100 mg PO TID #90 cap 06/17/20 [Rx Last Taken Unknown] metformin 500 mg tablet 500 mg PO BID #180 tab 06/17/20 [Rx Last Taken Unknown] collagenase clostridium histo. 250 unit/gram topical ointment 1 applic TOPICAL DAILY #30 g 09/02/20 [Rx Last Taken Unknown] sodium chloride 0.9 % irrigation solution 1 irrig TOPICAL DAILY #500 ml 09/02/20 [Rx Last Taken Unknown] dulaglutide 0.75 mg/0.5 mL subcutaneous pen injector 0.75 mg SC QWEEK #1 ml 09/06/20 [Rx Last Taken Unknown] Test strips #100 ea 09/30/20 [Rx Last Taken Unknown] alcohol swabs 1 pad TOPICAL BID #100 ea 09/30/20 [Rx Last Taken Unknown] glucometer 1 ea MC BID #1 device 09/30/20 [Rx Last Taken Unknown] lancets #100 ea 09/30/20 [Rx Last Taken Unknown] carvedilol 6.25 mg tablet 6.25 mg PO BID #180 tab 01/26/21 [Rx Last Taken Unknown] isosorbide mononitrate 30 mg tablet,extended release 24 hr 30 mg PO QAM #90 tab 01/26/21 [Rx Last Taken Unknown] rosuvastatin 20 mg tablet 20 mg PO DAILY #90 tab 01/26/21 [Rx Last Taken Unknown] Allergy/AdvReac Type Severity Reaction Status Date / Time Penicillins Allergy Hives Verified 09/13/21 18:44 acetaminophen [From Percocet] AdvReac Other Verified 09/13/21 18:44 oxycodone HCl [From Percocet] AdvReac Other Verified 09/13/21 18:44 Family History Grandfather Myocardial infarction Father Myocardial infarction Heart disease Mother Diabetes CVA (cerebral vascular accident) Myocardial infarction CAD (coronary artery disease) Hypertension Brother CAD (coronary artery disease) Hx CABG, cardiac stents (05-17) Myocardial infarction Brother Family history of brain aneurysm removed Brother CAD (coronary artery disease) hx cardiac stents Sister Diabetes Sister Diabetes Surgical History H/O percutaneous transluminal coronary angioplasty History of tonsillectomy Presence of stent in coronary artery (~03/27/08) S/P BKA (below knee amputation) (~05/22/19) Social History household members: family Smoking Status: Current every day smoker tobacco type: cigarettes alcohol intake: never substance use type: does not use caffeine: Yes Type: carbonated beverages Number of servings: 2 what type of physical activity do you participate in: walking frequency: daily seatbelt use: never do you feel safe at home: Yes ROS Constitutional Constitutional: Reports weight loss and other Eyes Eyes: Reports as per HPI ENT HEENT: Reports as per HPI Cardiovascular Cardiovascular: Reports dyspnea and orthopnea Respiratory/Chest Respiratory/Chest: Reports cough and dyspnea Gastrointestinal Gastrointestinal: Reports as per HPI Genitourinary Genitourinary: Reports as per HPI Musculoskeletal Musculoskeletal: Reports as per HPI Integumentary Integumentary: Reports as per HPI Neurologic Neurologic: Reports as per HPI Physical Exam Narrative This is a 61-year-old cachectic appearing white male who appears to be resting reasonably comfortably at the moment in no acute distress. Const alert and oriented x3 Orientation / Consciousness: awake HEENT normocephalic, head/scalp atraumatic and hearing grossly normal bilaterally Eyes PERRL, EOMs intact bilaterally and conjunctivae normal Neck full ROM, supple and no JVD Resp Auscultation: diminished lung sounds bilateral lower Cardio regular rate, regular rhythm, S1 normal heart sound and S2 normal heart sound Rhythm: abnormal rhythm ectopic beats GI normal to inspection, nondistended, normoactive bowel sounds Extremity no pedal edema Skin no rashes or lesions noted Neuro oriented x3, moves all extremities, no focal motor deficits and no sensory deficits noted Psych Psych Narrative: Depressed Risk Stratification Risk Stratification Applicable: Yes Age >/= 65: No >/= 3 CAD Risk Factors (HTN, HLD, DM, family hx of CAD, or current smoker): Yes Aspirin Use in the Past 7 Days: Yes Severe Angina (>/= episodes in 24 hours): No EKG ST Changes >/= 0.5mm: No Positive Cardiac Marker: Yes PRETTY Risk Stratification Score: 3 PRETTY % Risk: 13% Risk Procedure Criteria Type of Procedure Procedure Type: Elective Elective Risks - COVID COVID Risk Discussion: The surgeon/proceduralist and patient have discussed in detail the risk of exposure to and/or potential harm posed by the COVID-19 virus with having a surgery/procedure at this time versus the risk of delaying the surgery/procedure. It is not possible to know either the risk of delaying the surgery or procedure or chance of getting an infection with perfect accuracy, but a joint decision was made between the patient and the surgeon/proceduralist to proceed at this time with the scheduled surgery/procedure as indicated on the consent form. Objective Data Vital Signs: Vital Signs Temp Pulse Resp BP Pulse Ox 97.9 F 104 H 18 92/64 95 09/14/21 16:53 09/14/21 16:53 09/14/21 16:53 09/14/21 16:53 09/14/21 16:53 Oxygen Delivery Method Room Air Weight: 114 lb 3.191 oz Body Mass Index (BMI) 16.4 Intake & Output: Intake and Output for Last 24 Hours 09/12/21 09/13/21 09/14/21 23:59 23:59 23:59 Intake Total 495 / 495 390 / 390 Output Total 250 / 250 Balance 495 / 495 140 / 140 Lab / Micro Data Result Diagrams: 09/14/21 05:56 09/14/21 05:56 Labs: Laboratory Results - last 24 hr 09/13/21 19:35: WBC 7.7, RBC 4.64, Hgb 13.4, Hct 40.0, MCV 86.2, MCH 28.9, MCHC 33.5, RDW Std Deviation 41.1, RDW Coeff of [place] 13.2, Plt Count 359, MPV 11.0, Immature Gran % (Auto) 0.300, Neut % (Auto) 59.5, Lymph % (Auto) 31.6, [place] % (Auto) 7.8, Eos % (Auto) 0.5, Baso % (Auto) 0.3, Absolute Neuts (auto) 4.6, Absolute Lymphs (auto) 2.43, Nucleated RBC % 0 09/13/21 19:35: Sodium 137, Potassium 4.4, Chloride 102, Carbon Dioxide 29.0, Anion Gap 6, BUN 18, Creatinine 0.74, Estim Creat Clear Calc 72.41, Est GFR (MDRD) Af Amer 139, Est GFR (MDRD) Non-Af 115, BUN/Creatinine Ratio 24.3 H, Glucose 320 H, Calcium 9.4, Total Bilirubin 0.30, Direct Bilirubin 0.11, AST 8 L, ALT 10 L, Alkaline Phosphatase 125 H, Total Protein 7.7, Albumin 2.3 L, Globulin 5.4 H 09/13/21 19:35: Lactic Acid 1.8 09/13/21 19:35: B-Natriuretic Peptide 909.7 H 09/13/21 22:58: Procalcitonin < 0.01 09/14/21 00:13: Troponin I High Sens 258 H* 09/14/21 02:25: Troponin I High Sens 230 H* 09/14/21 05:56: WBC 6.0, RBC 3.89 L, Hgb 10.9 L, Hct 33.4 L, MCV 85.9, MCH 28.0, MCHC 32.6, RDW Std Deviation 41.2, RDW Coeff of [place] 13.2, Plt Count 288, MPV 11.5, Immature Gran % (Auto) 0.200, Neut % (Auto) 62.6, Lymph % (Auto) 29.0, [place] % (Auto) 7.6, Eos % (Auto) 0.3, Baso % (Auto) 0.3, Absolute Neuts (auto) 3.8, Absolute Lymphs (auto) 1.75, Nucleated RBC % 0 09/14/21 05:56: Sodium 134 L, Potassium 4.1, Chloride 100, Carbon Dioxide 29.0, Anion Gap 5, BUN 15, Creatinine 0.62 L, Estim Creat Clear Calc 93.99, Est GFR (MDRD) Af Amer 172, Est GFR (MDRD) Non-Af 142, BUN/Creatinine Ratio 24.4 H, Glucose 309 H, Calcium 8.5, Total Bilirubin 0.30, AST 9 L, ALT 10 L, Alkaline Phosphatase 110, Troponin I High Sens 190 H*, Total Protein 6.8, Albumin 1.9 L, Globulin 4.9 H, Albumin/Globulin Ratio 0.4 L, Triglycerides 118, Cholesterol 177, LDL Cholesterol 127, VLDL Cholesterol 24, HDL Cholesterol 26 L, TSH 2.67 02/09/22 05:56: Hemoglobin A1c 12.2 H 09/14/21 06:40: POC Glucose 331 H 09/14/21 11:29: POC Glucose 210 H Micro: Microbiology 09/14/21 01:22 Urine, Clean Catch Legionella Antigen - Final 09/14/21 01:22 Urine, Clean Catch Streptococcus pneumoniae Antigen (M - Final 09/13/21 20:40 Nasal Secretion SARS-CoV-2 Antigen (Rapid) - Final Cardiology Labs/Tests 09/13/21 19:35: WBC 7.7, RBC 4.64, Hgb 13.4, Hct 40.0, MCV 86.2, MCH 28.9, MCHC 33.5, Plt Count 359, MPV 11.0, Immature Gran % (Auto) 0.300, Neut % (Auto) 59.5, Lymph % (Auto) 31.6, [place] % (Auto) 7.8, Eos % (Auto) 0.5, Baso % (Auto) 0.3, Absolute Neuts (auto) 4.6, Nucleated RBC % 0 09/13/21 19:35: Sodium 137, Potassium 4.4, Chloride 102, Carbon Dioxide 29.0, Anion Gap 6, BUN 18, Creatinine 0.74, Est GFR (MDRD) Af Amer 139, Est GFR (MDRD) Non-Af 115, BUN/Creatinine Ratio 24.3 H, Glucose 320 H, Calcium 9.4, Total Bilirubin 0.30, Direct Bilirubin 0.11 09/13/21 19:35: Lactic Acid 1.8 09/13/21 19:35: B-Natriuretic Peptide 909.7 H 09/14/21 05:56: WBC 6.0, RBC 3.89 L, Hgb 10.9 L, Hct 33.4 L, MCV 85.9, MCH 28.0, MCHC 32.6, Plt Count 288, MPV 11.5, Immature Gran % (Auto) 0.200, Neut % (Auto) 62.6, Lymph % (Auto) 29.0, [place] % (Auto) 7.6, Eos % (Auto) 0.3, Baso % (Auto) 0.3, Absolute Neuts (auto) 3.8, Nucleated RBC % 0 09/14/21 05:56: Sodium 134 L, Potassium 4.1, Chloride 100, Carbon Dioxide 29.0, Anion Gap 5, BUN 15, Creatinine 0.62 L, Est GFR (MDRD) Af Amer 172, Est GFR (MDRD) Non-Af 142, BUN/Creatinine Ratio 24.4 H, Glucose 309 H, Calcium 8.5, Total Bilirubin 0.30, Triglycerides 118, Cholesterol 177, LDL Cholesterol 127, VLDL Cholesterol 24, HDL Cholesterol 26 L 09/14/21 05:56: Hemoglobin A1c 12.2 H Rhythm: As noted above EKG: As noted above ECHO: 09-13-2021: As noted below Transthoracic echocardiogram: 04-03-17 Interpretation Summary Moderate segmental systolic dysfunction (see wall motion). The estimated ejection fraction is 35 %. Mid cavitary false tendon noted. Mild diffuse mitral valve thickening. Trivial mitral valve insufficiency. Trivial tricuspid valve insufficiency. Mild diffuse aortic valve thickening. Transmitral doppler flow suggestive of impaired relaxation of left ventricle Transthoracic echocardiogram: [facility]: 05-09-19: Severe global left ventricular systolic dysfunction with an estimated LVEF of 23% with normal RV size and function and no hemodynamically significant valvular disease reported Echocardiogram: 08-27-2020 Interpretation Summary Severe segmental systolic dysfunction (see wall motion). The estimated ejection fraction is 20 %. Mid cavitary false tendon noted. Trivial mitral valve insufficiency. Trivial tricuspid valve insufficiency. Mild focal aortic valve calcification. Diastolic function is indeterminate. Stress Test Report: Date: 04/03/2017 Procedure: Pharmacologic stress nuclear imaging study. Indications: Shortness of breath/dyspnea; CAD; status post PCI Consent: Per the patient Procedure: The patient underwent pharmacologic (Regadenoson) evaluation with a peak heart rate of 88 bpm (53% predicted maximal heart rate) with a peak blood pressure 100/80 mmHg. The baseline ECG demonstrated normal sinus rhythm with an incomplete left bundle branch block pattern with nonspecific ST segment abnormality. The peak pharmacologic ECG demonstrated no obvious ECG changes. There were no obvious cardiac dysrhythmias pretest, during pharmacologic infusion, or recovery. There was no report of chest discomfort during pharmacologic infusion or recovery. The examination was discontinued secondary to completion of protocol. Impression: 1. Pharmacologic (Regadenoson) evaluation 2. Peak pharmacologic ECG with no obvious ECG changes 3. Nuclear images pending Myocardial perfusion imaging study: Technique: The patient was injected with 11.6 mCi of technetium 99m Cardiolite and subsequently rest SPECT Cardiolite nuclear imaging was obtained in the horizontal long, vertical long, and short axis views. The patient underwent pharmacologic (Regadenoson) evaluation with a peak heart rate of 88 bpm (53% predicted maximal heart rate) with a peak blood pressure 100/80 mmHg. the patient was injected with 33.2 mCi of technetium 99m Cardiolite and subsequently stress SPECT Cardiolite nuclear imaging was obtained in the horizontal long, vertical long, and short axis views. A gated Cardiolite study at peak stress was obtained. Interpretation: Rest and stress SPECT Cardiolite nuclear imaging status post realignment, normalization, and attenuation correction, demonstrates the appearance of extracardiac/hepatic gastrointestinal tracer uptake near the inferior segments. There appears to be diminished tracer uptake in portions of the basal anteroseptal/basal inferoseptal segments extending toward the mid portions which status post stress appears to be somewhat more prominent in the mid to distal portions. There is notation of diminished end systolic thickening and brightening on the gated Cardiolite study diminished myocardial thickening and inward wall motion. The reported LVEF is 37%. The aforementioned changes appear compatible with an area of previous myocardial injury/infarction with post stress myocardial perfusion changes appearing associated with [place]ot-infarct related myocardial ischemia. Impression: 1. Rest and stress SPECT cardiac nuclear imaging demonstrating myocardial perfusion changes appearing compatible with an area of previous myocardial injury/infarction involving portions of the interventricular septum with post stress myocardial perfusion changes appearing compatible with scot-infarct related myocardial ischemia. 2. The gated Cardiolite study reports an LVEF of 37%. Cardiac cath: 04/17/2017 Elevated left ventricular end-diastolic pressure Segmental left ventricular systolic dysfunction LVEF 35% Left main coronary artery with proximal eccentric 75% stenosis LAD with previously placed stent being patent, distal LAD with hazy 50% stenosis, diagonal branch #1 with diffuse irregular 50% stenosis LCx with mild luminal irregularities, OM 1 with proximal long diffuse irregular 25% stenosis, OM 2 with a previously placed stent which was noted to have in-stent long diffuse irregular 85% stenosis Proximal RCA occluded Left to right collateral flow PCI: 03/27/2008 at [facility] PCI to LAD; DX1; and OM1 Radiography Diagnostic Testing: Radiology Impression Chest X-Ray 09/13/21 19:57 IMPRESSION: There are bilateral pleural effusions. There are bilateral infiltrates. Electronically Signed: Buck Hodge MD at 20:14 EST , Echocardiogram 09/13/21 23:24 Interpretation Summary Severe segmental systolic dysfunction (see wall motion). The estimated ejection fraction is 15 %. Mid cavitary false tendon noted. The left atrium is mildly enlarged. Aneurysmal atrial septum. Mild papillary muscle dysfunction of the mitral valve. Moderately severe (3+) eccentric mitral valve insufficiency. Trivial tricuspid valve insufficiency. Mild focal aortic valve thickening. Mild focal aortic valve calcification. Mild (1+) pulmonic valve insufficiency. Trivial pericardial effusion. There are no echocardiographic indications of cardiac tamponade. Echo lucency compatible with a large appearing pleural effusion. Unable to estimate RV systolic pressure due to insufficient tricuspid regurgitant envelope. Unable to assess diastolic dysfunction. Ordering Physician: Alecia Robles Referring Physician: Xiomara Chambers Performed By: Mumtaz Marte RCS
--- NOTE | 2021-09-14 19:05 | CDU_ITS ---
Reason For Study: carotid artery disease Rt. Velocities/BP Lt. Velocities/BP Prox CCA 68.2/12.1 cm/sec. Prox CCA 90.4/20.1 cm/sec. Mid CCA 69.5/12.1 cm/sec. Mid CCA 80.5/20.1 cm/sec. Dist CCA 63.0/13.4 cm/sec. Dist CCA 93.7/21.2 cm/sec. Prox ICA 262.9/114.1 cm/sec. Prox ICA 89.1/31.5 cm/sec. Mid ICA 194.9/55.9 cm/sec. Mid ICA 99.2/36.6 cm/sec. Dist ICA 126.6/38.9 cm/sec. Dist ICA 81.6/23.4 cm/sec. Rt. ICA/CCA = 3.8. Lt. ICA/CCA = 1.2. Prox ECA 93.0/5.6 cm/sec. Prox ECA 144.8/6.0 cm/sec. Rt. Vert. 82.7/40.7 cm/sec. Right Extracranial There is homogeneous, smooth atherosclerotic plaque noted in the right common carotid artery. There is heterogeneous, irregular atherosclerotic plaque noted in the right internal carotid artery. There is homogeneous, smooth atherosclerotic plaque noted in the right external carotid artery. Antegrade flow is noted in the right vertebral artery. Left Extracranial There is homogeneous, smooth atherosclerotic plaque noted in the left common carotid artery. There is heterogeneous, irregular atherosclerotic plaque noted in the left internal carotid artery. There is heterogeneous, irregular atherosclerotic plaque noted in the left external carotid artery. The left vertebral artery could not be visualized. Procedure Carotid Duplex [id number]. This is a Carotid Duplex examination using B-mode, color flow and specral Doppler. The exam was diagnostic. Exam performed portable in patient room. Prelim to the pt's RN. VL/Carotid Duplex Ultrasound Interpretation Summary Calcific and soft plaque at the proximal right internal carotid artery with gre ater than 70% stenosis. Less than 50% stenosis right external carotid artery Heterogenous calcific and soft plaque at the proximal left internal carotid art eleanor with less than 50% stenosis Less than 50% stenosis left external carotid artery Patent and antegrade right vertebral artery with nonvisualized left vertebral a rtery Previous examination of March 20, 2017 suggested greater than 80% stenosis on the right. Clinical correlation would be appropriate Ordering Physician: Dev Alvarenga Performed By: Kevin Kramer RVT
[2021-09-14 19:41] LABS: Bedside Glucose 137 mg/dL (70-110)
[2021-09-14] MEDS: Atorvastatin Calcium 40 MG Tablet PO (20:21)
[2021-09-14] MEDS: SACUBITRIL/VALSARTAN 24/26 MG TABLET 1 EACH PO (20:25)
[2021-09-14] MEDS: levoFLOXacin IV 750 MG/150 ML BAG 100 MG IV (22:10)
[2021-09-14 23:01] LABS: Bedside Glucose 192 mg/dL (70-110)
[2021-09-15] VITALS (13 sets, daily range): BP systolic 62–117; BP diastolic 40–72; PULSE 75–102; RESP 16; TEMP 36.7–37.1; O2SAT 91–97
[2021-09-15 06:13] LABS: Absolute Lymphocyte Count 1.87 X10^3/uL (0.83-4.51); Absolute Neutrophil Count 2.9 X10^3/uL (2.0-7.7); Basophil# 0.01 X10^3/uL; Basophil% 0.2 % (0-1); Eosinophil# 0.04 X10^3/uL; Eosinophils% 0.8 % (0-5); Hematocrit 33.4 % (40-54); Hemoglobin 11.4 g/dL (13.0-16.5); Lymphocyte # 1.87 X10^3/ul (0.83-4.51); Lymphocyte % 35.3 % (19-41); Mean Corp Hgb Conc 34.1 g/dL (32-36); Mean Corpuscular Hgb 28.4 pg (27.0-32.0); Mean Corpuscular Volume 83.3 fL (80-94); Mean Platelet Vol. 11.9 fl (6.2-12.0); Monocyte# 0.48 X10^3/uL; Monocyte% 9.1 % (0-10); NRBC Flagged by Analyzer 0 % (0-5); Neutrophil # 2.87 X10^3/uL (2.7-7.7); Neutrophil % 54.2 % (47-70); Platelet Count 287 K/mm3 (150-450); RBC Distribution Width CV 13.1 % (11.6-14.6); RBC Distribution Width SD 39.7 fl (35.1-43.9); Red Blood Count 4.01 M/mm3 (4.6-6.2); White Blood Count 5.3 K/mm3 (4.4-11.0)
[2021-09-15 06:33] LABS: Anion Gap 7 (5-15); BUN 17 mg/dL (7-18); Calcium,Total 8.4 mg/dL (8.5-10.1); Chloride 100 mmol/L (98-107); Creatinine, Serum 0.59 mg/dL (0.70-1.30); EST Glomerular Filtration Rate 151 mL/min (>60); Est Glom Filt Rate - Afr Amer 182 mL/min (>60); Estimated Creatinine Clearance 98.39 ml/min; Glucose 160 mg/dL (74-106); Potassium 3.6 mmol/L (3.5-5.1); Sodium Level 136 mmol/L (136-145)
[2021-09-15] MEDS: Insulin Lispro 100 UNIT/ML INSULN.PEN SC ×4 (06:40→22:25)
[2021-09-15 07:01] LABS: Bedside Glucose 222 mg/dL (70-110)
[2021-09-15] MEDS: 0.9% Saline Lock 10 ML Syringe IV (08:41)
[2021-09-15] MEDS: Aspirin E.C. 81 MG Tablet PO (08:54)
--- NOTE | 2021-09-15 09:26 | CASEMGMT ---
RN CM NOTE: Per Dr Parrish, pt is agreeable to Palliative Care at this time. Order placed. Palliative screening tool and demographics sheet e-mailed to [facility] at this time. Call placed to Flor @ [facility] and she was notified of referral. Also made aware, ELIA Fu, requests pt to be seen while @ [facility]. Pedro SERRATO RN CM
--- NOTE | 2021-09-15 10:02 | PN.CARD_ITS ---
Subjective Subjective The patient states his breathing is 100% better than upon arrival at the hospital. He does note that when his blood pressure became somewhat low he felt lightheaded. Objective Data Vital Signs: Vital Signs Temp Pulse Resp BP Pulse Ox 98.2 F 79 16 98/60 97 09/15/21 09:15 09/15/21 09:15 09/15/21 09:15 09/15/21 09:15 09/15/21 09:15 Oxygen Delivery Method Room Air Weight: 113 lb 12.136 oz Body Mass Index (BMI) 16.4 Intake & Output: Intake and Output for Last 24 Hours 09/13/21 09/14/21 09/15/21 23:59 23:59 23:59 Intake Total 495 / 495 564.25 / 564.25 610 / 610 Output Total 500 / 500 0 / 0 Balance 495 / 495 64.25 / 64.25 610 / 610 Lab / Micro Data Result Diagrams: 09/15/21 05:30 09/15/21 05:30 Labs: Laboratory Results - last 24 hr 09/14/21 11:29: POC Glucose 210 H 09/14/21 16:22: POC Glucose 137 H 09/14/21 22:12: POC Glucose 192 H 09/15/21 05:30: WBC 5.3, RBC 4.01 L, Hgb 11.4 L, Hct 33.4 L, MCV 83.3, MCH 28.4, MCHC 34.1, RDW Std Deviation 39.7, RDW Coeff of [place] 13.1, Plt Count 287, MPV 11.9, Immature Gran % (Auto) 0.400, Neut % (Auto) 54.2, Lymph % (Auto) 35.3, [place] % (Auto) 9.1, Eos % (Auto) 0.8, Baso % (Auto) 0.2, Absolute Neuts (auto) 2.9, Absolute Lymphs (auto) 1.87, Nucleated RBC % 0 09/15/21 05:30: Sodium 136, Potassium 3.6, Chloride 100, Carbon Dioxide 29.0, Anion Gap 7, BUN 17, Creatinine 0.59 L, Estim Creat Clear Calc 98.39, Est GFR (MDRD) Af Amer 182, Est GFR (MDRD) Non-Af 151, BUN/Creatinine Ratio 29.0 H, Glucose 160 H, Calcium 8.4 L 09/15/21 06:39: POC Glucose 222 H Cardiology Labs/Tests 09/15/21 05:30: WBC 5.3, RBC 4.01 L, Hgb 11.4 L, Hct 33.4 L, MCV 83.3, MCH 28.4, MCHC 34.1, Plt Count 287, MPV 11.9, Immature Gran % (Auto) 0.400, Neut % (Auto) 54.2, Lymph % (Auto) 35.3, [place] % (Auto) 9.1, Eos % (Auto) 0.8, Baso % (Auto) 0.2, Absolute Neuts (auto) 2.9, Nucleated RBC % 0 09/15/21 05:30: Sodium 136, Potassium 3.6, Chloride 100, Carbon Dioxide 29.0, Anion Gap 7, BUN 17, Creatinine 0.59 L, Est GFR (MDRD) Af Amer 182, Est GFR (MDRD) Non-Af 151, BUN/Creatinine Ratio 29.0 H, Glucose 160 H, Calcium 8.4 L Rhythm: Sinus rhythm Radiography Diagnostic Testing: Radiology Impression Echocardiogram 09/13/21 23:24 Interpretation Summary Severe segmental systolic dysfunction (see wall motion). The estimated ejection fraction is 15 %. Mid cavitary false tendon noted. The left atrium is mildly enlarged. Aneurysmal atrial septum. Mild papillary muscle dysfunction of the mitral valve. Moderately severe (3+) eccentric mitral valve insufficiency. Trivial tricuspid valve insufficiency. Mild focal aortic valve thickening. Mild focal aortic valve calcification. Mild (1+) pulmonic valve insufficiency. Trivial pericardial effusion. There are no echocardiographic indications of cardiac tamponade. Echo lucency compatible with a large appearing pleural effusion. Unable to estimate RV systolic pressure due to insufficient tricuspid regurgitant envelope. Unable to assess diastolic dysfunction. Ordering Physician: Alecia Robles Referring Physician: Xiomara Chambers Performed By: Mumtaz Marte RCS Physical Exam Narrative This is a 61-year-old cachectic appearing white male who appears to be resting reasonably comfortably at the moment in no acute distress. Const alert and oriented x3 Orientation / Consciousness: awake HEENT normocephalic, head/scalp atraumatic and hearing grossly normal bilaterally Eyes PERRL, EOMs intact bilaterally and conjunctivae normal Neck full ROM, supple and no JVD Resp clear to auscultation bilaterally Cardio regular rate, regular rhythm, S1 normal heart sound and S2 normal heart sound Rhythm: abnormal rhythm ectopic beats GI normal to inspection, nondistended, normoactive bowel sounds Extremity no pedal edema Skin no rashes or lesions noted Neuro oriented x3, moves all extremities, no focal motor deficits and no sensory deficits noted Psych Psych Narrative: Depressed Assessment & Plan Assessment/Plan (1) Heart failure with reduced ejection fraction: PLAN: The patient presents with findings concerning for acute on chronic systolic mediated CHF. He has undergone noninvasive valuation. His most recent transthoracic echocardiogram is noted and has been compared to his previous studies which have demonstrated similar type findings with respect to his overall LV wall motion and systolic function. The patient has been treated medically and states he has noted improvement in his respiratory status. (2) Atherosclerotic heart disease of [place] coronary artery without angina pectoris: QUALIFIERS: [place] vs. transplanted heart: [place] heart Qualified Code(s): I25.10 - Atherosclerotic heart disease of [place] coronary artery without angina pectoris PLAN: The patient has a history of CAD. He has undergone PCI in the past. He had been referred, per his request, to [facility] in 2016 for consideration for CABG. He elected not to follow through with that at that time. In May 2019 he was evaluated at [facility] for multiple medical issues including his cardiovascular status. At that time he was evaluated by cardiovascular services and had declined evaluation for/proceeding with CABG. Thus he was continued on medical management. (3) H/O percutaneous transluminal coronary angioplasty: PLAN: As noted above the patient has undergone evaluation and care with PCI in the past. His most recent local cardiac catheterization procedure is as noted. As previously noted he was recommended for but declined further evaluation and care with CABG. Thus he continued medical therapy. (4) Cardiomyopathy in other diseases classified elsewhere: PLAN: His overall LV systolic function remains low. His LVEF is similar and/or lower than his previous studies. He does need to continue medical management. An attempt is made, as best as the patient can tolerate and his vital signs can tolerate, adjusting his medicines to include agents such as nitrates, beta- blockers, diuretics including spironolactone/Aldactone, and afterload reducing agents such as Entresto. He may also be a candidate for additional agents such as Farxiga. (5) Abnormal cardiac enzyme level: PLAN: The patient was noted to have elevated troponin I levels. This may be a type II event secondary to his acute on chronic systolic mediated CHF superimposed upon his underlying CAD status and ischemic mediated cardiomyopathy. He does not have ongoing symptoms or associated electrocardiographic findings suggestive of an acute coronary syndrome. At the moment he will continue conservative medical management. (6) Bilateral carotid artery stenosis: PLAN: The patient also has a history of carotid artery stenosis. He had previously been evaluated by peripheral vascular surgery based upon carotid duplex study performed in March 2017 which demonstrated that he had greater than 80% stenosis in the proximal right internal carotid artery and 50 to 69% stenosis in the proximal left internal carotid artery. It does not appear he has had this reassessed locally since that time. (7) Pure hypercholesterolemia: PLAN: He should continue risk factor evaluation and care as he is able and tolerates. (8) Essential hypertension: PLAN: He has a history of hypertension. His blood pressure did decrease. This may be secondary to his diuresis. Thus his volume status does need to be monitored closely to avoid volume overload as well as intravascular depletion. (9) Type 2 diabetes mellitus: PLAN: He will continue evaluation care per internal medicine. (10) S/P BKA (below knee amputation): PLAN: He is status post BKA at [facility] in May 2019. Addt'l Comments Overall, at the present time, the patient will continue medical therapy. Again, a lengthy discussion was held with the patient with respect to his wants and wishes as to proceed with a tertiary care center advanced heart failure/electrophysiology opinion of his cardiovascular status-whether he is still a candidate for any type of advanced heart failure care or ICD based upon what appears to be his poor prognosis above and beyond medical therapy versus whether he is only a candidate for continued medical therapy. At the same time a discussion has been held with the patient with respect to his once and wishes and if he does not want to proceed in such a manner then to consider palliative/hospice care. At the moment the patient states that he has not made a decision. He is agreeable to a consultation by palliative/hospice care. He states once that occurs then he will decide how he wants to proceed with further cardiovascular evaluation versus proceeding with palliative/hospice care. This note was generated using a voice recognition system and there may be incorrect words, spelling or punctuation that were not noted when reviewing the office note prior to saving.
--- NOTE | 2021-09-15 10:59 | PCM.CONS.P ---
Assessment & Plan Assessment/Plan (1) Heart failure with reduced ejection fraction: (2) Bilateral pleural effusion: (3) Adult failure to thrive: (4) Unintended weight loss: (5) S/P BKA (below knee amputation): (6) Type 2 diabetes mellitus: (7) Presence of stent in coronary artery: (8) Ulcer of right lower extremity: (9) Arterial stenosis: (10) Stenosis of right carotid artery: (11) Essential hypertension: PLAN: JC LITTLE, is a 61 M who was referred to [facility] due to worsening systolic heart failure, bilateral pulmonary infiltrates and carotid stenosis. He presented to the [facility] ER on 09/13/21 with worsening shortness of breath which had worsened over the past few days. He was then referred to Palliative to discuss both hospice and Palliative. Patient is educated on the difference between the 2 and requested a Palliative brochure. At this time, he wants to pursue active cardiac treatment to extend his life. He realizes that he most likely has 6 months to a year left and wants to live as long as he can for his grandchildren. To discuss Palliative with daughter and let us know. Palliative to follow up at discharge. 1) Systolic CHF/elevated troponin/dyspnea/pleural effusions/Stenosis of right carotid artery: EF of 15% with latest ECHO. Prognosis is poor. Patient had the opportunity for CABG in 2 separate occasions and deferred. Patient is definitely appropriate for hospice, but wants to continue any active treatment that Dr. Alvarenga would offer or refer. Palliative could assist with medication compliance and education. PRN oxygen may be required along with close monitoring of fluid balance. Patient understands that Palliative can assist with transition to hospice when appropriate. 2) Weight loss/ adult failure to thrive: May benefit from a low dose SSRI to help with mood and appetite. Patient reports that he did not like how he felt on antidepressants, so deciding what history he has with specific medications would be necessary. Encourage supplemental high calorie, high protein shakes. Nutritional consult if agreeable. 3) Debility/ AKA :PT/OT Would be appropriate due to weakness and limitations related to AKA. 4) HTN/ DM2/CHF/CAD/right foot ulcers: Complicate overall prognosis, treatment and recovery. Defer management to PCP and specialists. Thank you for the opportunity to participate in this patient's care, please do not hesitate to contact [facility] with any further questions or concerns. Palliative direct line is [phone]. Palliative will follow up at discharge. Patient wanted to talk to his daughter and make a decision from there. Palliative brochure and business card left with patient. Greater than 50% of F2F visit dedicated to education and counseling of palliative care services, medications, comorbid conditions and potential assistance with management, and plan of care moving forward. Start time: 10:15 End time: 11:50 HPI Consult Data Date of Consult: 09/15/21 HPI Narrative HPI Narrative: JC LITTLE, is a 61 M who was referred to [facility] due to worsening systolic heart failure, bilateral pulmonary infiltrates and carotid stenosis. He presented to the [facility] ER on 09/13/21 with worsening shortness of breath which had worsened over the past few days. He noticed increased struggle with lying flat. Denies recent URI type symptoms and dry cough with pleuritic discomfort worse with deep inspiratory effort and coughing not improving Past medical history listed below Has not been compliant with his home diabetic management. Reported to staff the damage is done and I am not messing around with it anymore. Patient had a life vest but will not wear due to fear of harm to his grandchildren. Covid-19 test was negative. Reported that the whole household had Covid-19 about a month ago coinciding with patient stopping his medications. Work-up in the ED included T 98.1, heart rate 125, BP 120/81, respiratory rate 22, 100% room air, CBC with WC 7.7, hemoglobin 13.4, platelet 359 without marked shift, CMP with glucose 320, lactic acid 1.8, AST/ALT 8/10, alk phos 125, rapid COVID antigen negative, chest x-ray with bilateral effusions and infiltrates, EKG with sinus tachycardia with no acute evidence of ischemia, blood culture x2 pending per ED. Patient was admitted to PCU for cardiac monitoring started on IV Lasix, strict I&O, daily weights, ECHO. Continue carvedilol. BNP of 909.7. Started on Azithromycin and Levaquin in the ER. Albuterol treatments and spirometry were encouraged. Blood sugar monitoring was started and hemoglobin A1C ordered. Continue Isosorbide with hold parameters of SBP< 100. Patient [facility] with [facility] for chronic right lower extremity wounds. Patient does have a left BKA 05/22/19. Patient has seen Dr. Alvarenga and with carotid stenosis and EF of 15% plan is to manage with medications. Patient was referred in 2017 for CABG to [facility] but elected not to follow through. Hew was also evaluated in 2019 by [facility] and declined proceeding with CABG at this time. PCP [facility] Specialists: Colette, cardio, Preferred Pharmacy: [facility]: Shavonne Little, daughter; Germaine Garcia, sister. Pt lives with daughter and 3 grandchildren(ages 5,2, and 10 months) in mobile home with steps in. Pt states scoots up steps to get in d/t left BKA. Pt states is mostly independent with ADL's. Pt states neither him or his daughter drive. Pt states his ex- drives or he uses [facility] but states they will not bring him home from appt's. DME/HHC: Pt has crutches, prosthesis, and w/c. Pt states does not wear prosthesis as 'no one ever showed me how.' Pt states no need for any further DME. Pt has been to a SNF in [facility] in the past but states no hx of HHC. Pt is on disability. Pt states smokes 1.5 pack/day and does not drink ETOH. Pt naming his daughter, Shavonne as Primary HCPOA and sister Germaine as secondary HCPOA. Living was completed during [facility] stay. Originals given to pt and copy placed on pt chart. Seen today in his room. cachectic, frail and disheveled. No dyspnea noted at this time. 96% on room air.Reports that he is feeling better but understands that everything has to stay in balance. Does know that his heart is failing but wants to pursue active treatment until Dr. Alvarenga says there is nothing further that can be done. Tearful during conversation. Wants to live for his grandkids and squeeze more time out. Palliative services explained. Patient is hesitant to have anyone out to his trailer. Says its a mess and I don't want to lose my grandkids. Denies any neglect to the kids, just messy with toys and clothes. Brochure given per request and will discuss with his daughter, Denies any chest pain at this time, some dizziness that is corrected with IV fluids, not abdominal pain, constipation. Transfers by wheelchair and continues to handle most of his ADls. Appetite is poor depending on what food is available. Has been on antidepressants in the past and they messed with my head. Denies any consistent phantom pain from the Left BKA. I just smack it and tell it the foots not there and it works. Uses Vicks rub which is effective. [facility] Medical History Abnormal cardiac enzyme level Arterial stenosis Atherosclerotic heart disease of [place] coronary artery without angina pectoris Bilateral carotid artery stenosis Bruit of right carotid artery Cardiomyopathy Cardiomyopathy in other diseases classified elsewhere CHF (congestive heart failure) Chronic systolic (congestive) heart failure Claudication Essential hypertension HTN (hypertension) Mitral valvular disorder Old myocardial infarction Peripheral vascular disease Pure hypercholesterolemia Stenosis of right carotid artery Type 2 diabetes mellitus Home Medications aspirin 81 mg PO DAILY@0800 04/16/17 [History Last Taken 04/17/17] nitroglycerin 0.4 mg sublingual tablet 0.4 mg SUBLINGUAL Q5-15M PRN #25 tab 06/16/20 [Rx Last Taken Unknown] gabapentin 100 mg capsule 100 mg PO TID #90 cap 06/17/20 [Rx Last Taken Unknown] metformin 500 mg tablet 500 mg PO BID #180 tab 06/17/20 [Rx Last Taken Unknown] collagenase clostridium histo. 250 unit/gram topical ointment 1 applic TOPICAL DAILY #30 g 09/02/20 [Rx Last Taken Unknown] sodium chloride 0.9 % irrigation solution 1 irrig TOPICAL DAILY #500 ml 09/02/20 [Rx Last Taken Unknown] dulaglutide 0.75 mg/0.5 mL subcutaneous pen injector 0.75 mg SC QWEEK #1 ml 09/06/20 [Rx Last Taken Unknown] Test strips #100 ea 09/30/20 [Rx Last Taken Unknown] alcohol swabs 1 pad TOPICAL BID #100 ea 09/30/20 [Rx Last Taken Unknown] glucometer 1 ea MC BID #1 device 09/30/20 [Rx Last Taken Unknown] lancets #100 ea 09/30/20 [Rx Last Taken Unknown] carvedilol 6.25 mg tablet 6.25 mg PO BID #180 tab 01/26/21 [Rx Last Taken Unknown] isosorbide mononitrate 30 mg tablet,extended release 24 hr 30 mg PO QAM #90 tab 01/26/21 [Rx Last Taken Unknown] rosuvastatin 20 mg tablet 20 mg PO DAILY #90 tab 01/26/21 [Rx Last Taken Unknown] Allergy/AdvReac Type Severity Reaction Status Date / Time Penicillins Allergy Hives Verified 09/13/21 18:44 acetaminophen [From Percocet] AdvReac Other Verified 09/13/21 18:44 oxycodone HCl [From Percocet] AdvReac Other Verified 09/13/21 18:44 Family History Grandfather Myocardial infarction Father Myocardial infarction Heart disease Mother Diabetes CVA (cerebral vascular accident) Myocardial infarction CAD (coronary artery disease) Hypertension Brother CAD (coronary artery disease) Hx CABG, cardiac stents (05-17) Myocardial infarction Brother Family history of brain aneurysm removed Brother CAD (coronary artery disease) hx cardiac stents Sister Diabetes Sister Diabetes Surgical History H/O percutaneous transluminal coronary angioplasty History of tonsillectomy Presence of stent in coronary artery (~03/27/08) S/P BKA (below knee amputation) (~05/22/19) Social History household members: family Smoking Status: Current every day smoker tobacco type: cigarettes alcohol intake: never substance use type: does not use caffeine: Yes Type: carbonated beverages Number of servings: 2 what type of physical activity do you participate in: walking frequency: daily seatbelt use: never do you feel safe at home: Yes ROS Constitutional Constitutional: Reports fatigue, poor appetite and weakness Eyes Eyes: Reports requires corrective lenses and other Details: poor eyesight r/t uncontrolled hyperglycemia ENT HEENT: Reports dizziness; Denies loss taste/smell, nasal congestion or nasal discharge Cardiovascular Cardiovascular: Reports dyspnea on exertion and lightheadedness; Denies chest pain at rest, chest pain with activity, cyanosis or dyspnea at rest Respiratory/Chest Respiratory/Chest: Reports cough and dyspnea on exertion; Denies difficulty clearing secretions Gastrointestinal Gastrointestinal: Reports anorexia; Denies change in bowel habits, constipation or dysphagia Genitourinary Genitourinary: Reports none; Denies abdominal discomfort, burning urination or dysuria Musculoskeletal Musculoskeletal: Reports other Details: Left BKA. Transfers to wheelchair. ; Denies extremity pain Integumentary Integumentary: Reports as per HPI Psychiatric Psychiatric: Reports other Details: tearful about diagnosis Physical Exam Const alert and oriented x3 General Appearance: disheveled, frail and appears older than stated age Orientation / Consciousness: oriented to person, oriented to place and oriented to time Exam Limitations: no limitations Nutritional Appearance: cachectic HEENT normocephalic, head/scalp atraumatic and hearing grossly normal bilaterally Eyes conjunctivae normal and no scleral icterus General Eye: normal appearance of both eyes Neck full ROM, supple and no JVD Chest Chest: symmetrical chest wall rise Resp normal respiratory effort and clear to auscultation bilaterally Effort and Inspection: able to speak in complete sentences and symmetric chest movement Cardio regular rate, regular rhythm, S1 normal heart sound and S2 normal heart sound GI normal to inspection, nondistended, normoactive bowel sounds Extremity no clubbing, cyanosis or edema Extremity Narrative: Left lower BKA Left Lower Extremity: lower leg Skin Skin Narrative: scattered scabs to lower right extremity Neuro oriented x3, CN's II-XII intact bilaterally and moves all extremities Psych Attitude: calm and engaged Activity / Motor Behavior: appropriate eye contact Speech: normal speech Mood & Affect: tearful Thought Process: normal thought process Memory / Cognition: memory grossly intact
[2021-09-15] MEDS: Enoxaparin 30 MG/0.3 ML Syringe SC (11:22)
[2021-09-15 11:36] LABS: Bedside Glucose 265 mg/dL (70-110)
--- NOTE | 2021-09-15 12:40 | PN.HOSP_ITS ---
Documented by User: Nickie Dickerson NP, [employer] SAL[employer] REPRESENTATIVE-C 09/15/21 13:02 Subjective Subjective Patient seen and examined. Denies chest pain, shortness of breath. Patient reported episode of dizziness/lightheadedness this morning and was noted to have low blood pressure at that time. Patient received fluid bolus with resolve of symptoms and hypotension. Objective Data Objective Data Vital Signs: Vital Signs Temp Pulse Resp BP Pulse Ox 98.2 F 79 16 98/60 97 09/15/21 09:15 09/15/21 09:15 09/15/21 09:15 09/15/21 09:15 09/15/21 09:15 Oxygen Delivery Method Room Air Weight: 113 lb 12.136 oz Body Mass Index (BMI) 16.4 Intake & Output: Intake and Output for Last 24 Hours 09/13/21 09/14/21 09/15/21 23:59 23:59 23:59 Intake Total 495 / 495 564.25 / 564.25 610 / 610 Output Total 500 / 500 550 / 550 Balance 495 / 495 64.25 / 64.25 60 / 60 Medical Nutrition Assessment Dietitian: Malnutrition Criteria Met Start: 09/14/21 12:43 Freq: Status: Active Protocol: Document 09/14/21 12:43 AG (Rec: 09/14/21 12:43 AG [id number]) Nutrition Malnutrition Evidence of Malnutrition Exists Yes Malnutrition (severe): Chronic Evidenced By Suboptimal Energy Intake ( Severe),Physical Changes ( Severe) Clinical Problem Chronic Disease or Condition Related Malnutrition Etiology severe, chronic malnutrition r /t inadequate energy intake Signs/Symptoms as evidenced by estimated PO intake meeting <75% of estimated energy needs >3 months, severe muscle wasting/ fat loss in clavicle, acromion , scapular, orbital, and temporal region per physical exam Status Active Problem Recommendation Dietitian Recommendations/Changes will change diet to regular, no added salt given severe malnutrition; if pt elects to refuse insulin, will adjust diet accordingly. Will recommend kitchen staff to encourage 4-5 servings of CHO/ meal. Will increase Glucerna to 4x/day and fortify foods when possible. Recommend close monitoring of electrolytes given risk for refeeding syndrome. Lab / Micro Data Result Diagrams: 09/15/21 05:30 09/15/21 05:30 Labs: Laboratory Results - last 24 hr 09/14/21 16:22: POC Glucose 137 H 02/09/22 22:12: POC Glucose 192 H 09/15/21 05:30: WBC 5.3, RBC 4.01 L, Hgb 11.4 L, Hct 33.4 L, MCV 83.3, MCH 28.4, MCHC 34.1, RDW Std Deviation 39.7, RDW Coeff of [place] 13.1, Plt Count 287, MPV 11.9, Immature Gran % (Auto) 0.400, Neut % (Auto) 54.2, Lymph % (Auto) 35.3, [place] % (Auto) 9.1, Eos % (Auto) 0.8, Baso % (Auto) 0.2, Absolute Neuts (auto) 2.9, Absolute Lymphs (auto) 1.87, Nucleated RBC % 0 09/15/21 05:30: Sodium 136, Potassium 3.6, Chloride 100, Carbon Dioxide 29.0, Anion Gap 7, BUN 17, Creatinine 0.59 L, Estim Creat Clear Calc 98.39, Est GFR (MDRD) Af Amer 182, Est GFR (MDRD) Non-Af 151, BUN/Creatinine Ratio 29.0 H, Glucose 160 H, Calcium 8.4 L 09/15/21 06:39: POC Glucose 222 H 09/15/21 11:16: POC Glucose 265 H Micro: Microbiology 09/13/21 20:50 Blood Culture (Wb) - Anticubital Right Blood Culture - Preliminary 09/14/21 01:22 Urine, Clean Catch Legionella Antigen - Final 09/14/21 01:22 Urine, Clean Catch Streptococcus pneumoniae Antigen (M - Final 09/13/21 20:40 Nasal Secretion SARS-CoV-2 Antigen (Rapid) - Final Physical Exam Const alert, oriented x3 and no apparent distress Constitutional Narrative: Unkempt. Orientation / Consciousness: awake, oriented to person, oriented to place and oriented to time Nutritional Appearance: cachectic HEENT normocephalic and moist oral mucous membranes Eyes PERRL, EOMs intact bilaterally and conjunctivae normal Neck no lymphadenopathy Resp clear to auscultation bilaterally Auscultation: diminished lung sounds Cardio regular rate, regular rhythm and no murmurs Peripheral Pulses: pulses 2+ throughout GI normal to inspection, nondistended, normoactive bowel sounds, non-tender and non-distended Extremity normal to inspection Extremity Narrative: Left BKA Skin no rashes or lesions noted Lesions: no lesions Rashes: no rashes Trauma: no lacerations or abrasions Neuro CN's II-XII intact bilaterally, no focal motor deficits, no sensory deficits noted and deep tendon reflexes 2+ bilaterally Psych mental status grossly normal and affect normal Assessment & Plan Assessment/Plan (1) Heart failure with reduced ejection fraction: (2) Abnormal cardiac enzyme level: PLAN: 1. Acute on chronic heart failure with reduced ejection fraction/ischemic cardiomyopathy-cardiology following. Echo demonstrates an EF of 15%, moderately severe mitral valve insufficiency. Cardiology discussed with patient evaluation at tertiary facility versus continued medical therapy versus palliative/hospice care. Patient amenable to palliative consult with medical management at this time. Continue diuretics as blood pressure tolerates. Continue Entresto, Aldactone, carvedilol, Imdur. 2. Elevated troponin-suspect demand ischemia related to #1. No EKG changes. 3. Bilateral community-acquired pneumonia with gram-positive cocci bacteremia- chest x-ray with bilateral infiltrates. On IV Levaquin pending final blood culture. Albuterol and DuoNeb aerosols. Afebrile, no leukocytosis. 4. CAD with history of PCI/stent-continue medical management. 5. Bilateral carotid stenosis-previously evaluated by vascular surgery with previous carotid duplex March 2017 demonstrating greater than 80% stenosis of t he right internal carotid artery and 50 to 69% stenosis of the left internal carotid artery. Recommend continued outpatient follow-up. Repeat carotid ultrasound pending. Continue aspirin, statin. 6. Hypertension-continue current regimen with hold parameters. 7. Hyperlipidemia-continue statin. 8. Type 2 diabetes [id number] with sliding scale insulin. 9. Chronic diabetic wounds with history of left below the knee amputation- continue dressing changes as ordered. 10. Peripheral neuropathy-on gabapentin. 11. Tobacco dependence-encouraged cessation. Nicotine replacement patch if d esired. 12. Severe protein calorie malnutrition-as evidenced by cachectic appearance with muscle and fat loss. BMI 16. Dietitian consult. DVT prophylaxis-Lovenox, SCDs This patient was seen by MAGALIS Rogers under the supervision of Dr. Parrish. Documented by User: Dr. Marcello Parrish MD 09/15/21 14:13 Objective Data Lab / Micro Data Result Diagrams: 09/15/21 05:30 09/15/21 05:30 Assessment & Plan Addt'l Comments This patient was seen in conjunction with MAGALIS Rogers . I have independently interviewed and examined the patient and reviewed pertinent historical, laboratory, and other data. Please refer to MAGALIS Rogers note for details of this patient's presentation, findings, and recommendations. I have reviewed MAGALIS Rogers note and concur with documented findings. In brief, patient is a 61-year-old gentleman with history of ischemic cardiomyopathy with an ejection fraction of 20% who presented with progressive shortness of breath. An assessment of acute on chronic congestive heart failure with reduced ejection fraction made admitted to a monitored bed for subsequent management 09/15/2021; patient seen still remains dyspneic at rest despite being on optimal treatment. Did discuss with patient about obtaining palliative care consultation and he was agreeable consult subsequently placed. Physical Examination: GENERAL: Frail looking HEENT: Atraumatic; EYES; Anicteric, Normal Conjunctiva NECK; supple, normal thyroid, RESPIRATORY: Diminished to auscultation CARDIOVASCULAR: Regular S1 S2, GI: soft, normoactive bowel sounds, : No Renal angle tenderness; EXTREMITIES: No edema, no clubbing, MUSCULOSKELETAL: no muscle wasting NEURO: Awake; no lateralizing signs. SKIN: No Rash PSYCH; Flat affect Assessment: 1. Acute congestive heart failure with reduced ejection fraction 2. Ischemic cardiomyopathy 3. Elevated troponin 4. Coronary artery disease with previous PCI with stent to proximal LAD and OM1 with subsequent balloon angioplasty 5. Diabetes mellitus type 2 6. Dyslipidemia 7. Essential hypertension 8. Peripheral neuropathy 9. Severe protein calorie malnutrition Recommendations: 1. I have discussed the results of my overview and impressions with the patient 2. Options for management were reviewed Total time spent by myself and the advanced practice practitioner evaluating patient, reviewing labs, subsequent management decisions, discussion with patient as well as other providers 40 minutes ( 25 of which was spent by myself) Charges/Coding Visit Charges Inpatient E&M: 33930 Subs Hosp L2
--- NOTE | 2021-09-15 13:05 | CASEMGMT ---
KARL SCHULZ NOTE: To room to talk w/pt. Discussed HHC and CCN. Pt states he may be interested in HHC and requested information. He states would like to talk w/this daughter first before making a decision, stating he lives w/her, it is her home, and she would have to approve. Given [facility] HHC rac card and also list of HHC providers including quality and resource use data and consistent with the patient's preferred geographic region, medical needs, and insurance network. Pt also provided w/CCN rac card. The pt states he will look over the information and talk w/his daughter. Pedro SERRATO RN CM
--- NOTE | 2021-09-15 13:34 | CHAPLAIN ---
Type of Pastoral Visit _x__ Initial Visit ___ Follow-up Visit ___ On-call Visit ___ General Patient Visit ___ Spiritual Assessment ___ Family Conference ___ Bereavement ___ Rapid Response ___ Code Blue ___ Other (describe below) Pastoral Care Referral From _x__ Patient ___ Family _x__ Nurse ___ Physician ___ Sealing Machine Operator ___ Correctional Officer ___ Other (describe below) Sacrament/Intervention _x__ Active listening ___ Anointing ___ Alevism ___ Bereavement ___ Communion _x__ Maria Fernanda exploration ___ _x__ Life review _x__ Prayer ___ Reconciliation ___ Sacrament of Sick _x__ Supportive presence ___ Wedding ___ Other (describe below) Pastoral Comments this was a very long conversation and review of life with expression of feelings about his diagnosis and prognosis for a limited time to live; patient has regrets about life and has emotional concerns; pt has good support from his daughter and is most concerned about missing life with his three young grandchildren; pt is of the [employer] but has not been practicing or attending services in recent years; pt is open to future visits and spiritual support
[2021-09-15 16:21] LABS: Bedside Glucose 310 mg/dL (70-110)
[2021-09-15] MEDS: Furosemide 20 MG Tablet PO (17:17)
[2021-09-15] MEDS: Atorvastatin Calcium 40 MG Tablet PO (22:20)
[2021-09-15] MEDS: SACUBITRIL/VALSARTAN 24/26 MG TABLET 1 EACH PO (22:20)
[2021-09-15] MEDS: Carvedilol 6.25 MG Tablet PO (22:20)
[2021-09-15] MEDS: levoFLOXacin IV 750 MG/150 ML BAG 100 MG IV (22:24)
[2021-09-15 23:26] LABS: Bedside Glucose 215 mg/dL (70-110)
[2021-09-16 03:00] VITALS: PULSE 88
[2021-09-16 03:15] VITALS: BP 107/68; PULSE 86; RESP 16; TEMP 36.7; O2SAT 96
[2021-09-16] MEDS: Gabapentin 100 MG Capsule PO (06:48)
[2021-09-16] MEDS: Insulin Lispro 100 UNIT/ML INSULN.PEN SC (06:48)
[2021-09-16 06:56] LABS: Bedside Glucose 207 mg/dL (70-110)
[2021-09-16 07:42] VITALS: PULSE 85
[2021-09-16] MEDS: Aspirin E.C. 81 MG Tablet PO (07:58)
[2021-09-16 08:00] VITALS: BP 113/67; PULSE 88; RESP 18; TEMP 36.6; O2SAT 98
[2021-09-16 08:05] VITALS: PULSE 80; RESP 18; O2SAT 96
[2021-09-16 08:23] LABS: Absolute Lymphocyte Count 2.09 X10^3/uL (0.83-4.51); Absolute Neutrophil Count 3.8 X10^3/uL (2.0-7.7); Basophil# 0.01 X10^3/uL; Basophil% 0.2 % (0-1); Eosinophil# 0.05 X10^3/uL; Eosinophils% 0.8 % (0-5); Hematocrit 34.4 % (40-54); Hemoglobin 11.2 g/dL (13.0-16.5); Lymphocyte # 2.09 X10^3/ul (0.83-4.51); Lymphocyte % 31.7 % (19-41); Mean Corp Hgb Conc 32.6 g/dL (32-36); Mean Corpuscular Hgb 28.5 pg (27.0-32.0); Mean Corpuscular Volume 87.5 fL (80-94); Mean Platelet Vol. 11.5 fl (6.2-12.0); Monocyte# 0.61 X10^3/uL; Monocyte% 9.3 % (0-10); NRBC Flagged by Analyzer 0 % (0-5); Neutrophil # 3.81 X10^3/uL (2.7-7.7); Neutrophil % 57.7 % (47-70); Platelet Count 284 K/mm3 (150-450); RBC Distribution Width CV 13.2 % (11.6-14.6); RBC Distribution Width SD 42.4 fl (35.1-43.9); Red Blood Count 3.93 M/mm3 (4.6-6.2); White Blood Count 6.6 K/mm3 (4.4-11.0)
[2021-09-16 08:45] LABS: Anion Gap 3 (5-15); BUN 18 mg/dL (7-18); BUN/Creat Ratio 29.8 RATIO (10-20); Calcium,Total 8.1 mg/dL (8.5-10.1); Chloride 103 mmol/L (98-107); EST Glomerular Filtration Rate 145 mL/min (>60); Est Glom Filt Rate - Afr Amer 176 mL/min (>60); Estimated Creatinine Clearance 96.19 ml/min; Glucose 182 mg/dL (74-106); Potassium 3.7 mmol/L (3.5-5.1); Sodium Level 135 mmol/L (136-145)
--- NOTE | 2021-09-16 09:58 | CASEMGMT ---
MARGARITA met with patient regarding resources. MARGARITA introduced self and role at [facility]. MARGARITA gave patient information on [facility] toll free resource line. He thanked MARGARITA for the information. Kylee EPPS
[2021-09-16] MEDS: SACUBITRIL/VALSARTAN 24/26 MG TABLET 1 EACH PO (10:20)
[2021-09-16] MEDS: Isosorbide Mononitrate 30 MG Tablet PO (10:21)
[2021-09-16] MEDS: Carvedilol 6.25 MG Tablet PO (10:21)
[2021-09-16] MEDS: Spironolactone 25 MG Tablet 12.5 MG PO (10:21)
[2021-09-16] MEDS: Furosemide 20 MG Tablet PO (10:21)
--- NOTE | 2021-09-16 10:32 | PCM.DC ---
Discharge Instructions Diet Discharge Diet: 8 Cup Fluid Restriction, 2000 mg Sodium Diet and Carb Control Diet Activity Discharge Activity: Return to Normal Activity Dressing / Incision Call your doctor if you observe: Shortness of breath, Dizziness and Chest pain Follow Up Care Test Results: Test results from this visit will be discussed in further detail at your follow-up appointment, if applicable. Discharge Plan Admission Admit Date/Time: 09/13/21 22:33 Primary Reason for Your Visit: Heart Failure Attending Provider: Marcello Parrish Primary Care Provider: Xiomara Chambers Consulting Providers: Dev Alvarenga Discharge Orders/Prescriptions Prescriptions: New furosemide 20 mg Tablet 20 mg PO BIDLX 30 Days Qty: 60 RF: 0 spironolactone 25 mg Tablet 12.5 mg PO DAILY 30 Days Qty: 15 RF: 0 Entresto 24-26 mg Tablet 1 tab PO BID 30 Days Qty: 60 RF: 0 levofloxacin 750 mg tablet 750 mg PO DAILY Qty: 5 RF: 0 Continued gabapentin 100 mg capsule 100 mg PO TID Qty: 90 RF: 1 metformin 500 mg tablet 500 mg PO BID Qty: 180 RF: 1 Santyl 250 unit/gram ointment 1 applic TOPICAL DAILY Qty: 30 RF: 0 sodium chloride [Sterile Saline] 0.9 % solution 1 irrig TOPICAL DAILY Qty: 500 RF: 0 carvedilol 6.25 mg tablet 6.25 mg PO BID Qty: 180 RF: 3 isosorbide mononitrate 30 mg tablet extended release 24 hr 30 mg PO QAM Qty: 90 RF: 3 rosuvastatin 20 mg tablet 20 mg PO DAILY Qty: 90 RF: 3 alcohol swabs [Alcohol Prep Pads] Pads, Medicated 1 pad TOPICAL BID Qty: 100 RF: 5 glucometer 1 ea MC BID Qty: 1 RF: 0 (DME) lancets See Rx Instructions .Route .MEDSUPPLY Qty: 100 RF: 5 (DME) Test strips See Rx Instructions .Route .MEDSUPPLY Qty: 100 RF: 5 aspirin 81 MG tablet 81 mg PO DAILY@0800 RF: 0 nitroglycerin 0.4 mg tablet, sublingual 0.4 mg SUBLINGUAL Q5-15M PRN (Reason: Chest Pain) Qty: 25 RF: 3 Trulicity 0.75 mg/0.5 mL pen injector 0.75 mg SC QWEEK Qty: 1 RF: 1 Referrals / Follow Up: Xiomara Chambers MD [Primary Care Provider] - In 1 Week Dev Alvarenga MD [STAFF PHYSICIAN] - See Referral Note (As scheduled 11/28/2021) Disposition Disposition (needs filled in before D/C Order can be placed): Home, Self Care
--- NOTE | 2021-09-16 10:48 | PCM.DC.SUM ---
Documented by User: Nickie Dickerson NP, [facility]ICE [facility] 09/16/21 10:59 Providers Date of Admission: 09/13/21 Date of Discharge: 09/16/21 Primary Care Physician: Dr. Xiomara Chambers MD Consultations 09/13/21 23:24 Consult: Onc/Wound/felt tipping machine tender Routine Comment: 09/14/21 10:57 Consult: Cardiology Routine Consulting Provider: Dev Alvarenga Reason for Consult: Elevated cardiac ezymes/worsening EF EMERGENT Consult: No MD Notified: Yes Date Notified: 09/14/21 Time Notified: 10:57 Method of Notification: Provider Initiated Reason For Visit: ? CAP, POSSIBLE CHF EXACERBATION Diagnosis Discharge Diagnosis (1) Heart failure with reduced ejection fraction: Status: Acute Code(s): I50.20 - Unspecified systolic (congestive) heart failure (2) Bilateral pleural effusion: Status: Acute Code(s): J90 - Pleural effusion, not elsewhere classified (3) Adult failure to thrive: Status: Acute Code(s): R62.7 - Adult failure to thrive (4) Unintended weight loss: Status: Acute Code(s): R63.4 - Abnormal weight loss (5) S/P BKA (below knee amputation): Status: Resolved Code(s): Z89.519 - Acquired absence of unspecified leg below knee (6) Type 2 diabetes mellitus: Status: Chronic Code(s): E11.9 - Type 2 diabetes mellitus without complications (7) Presence of stent in coronary artery: Status: Chronic Code(s): Z95.5 - Presence of coronary angioplasty implant and graft (8) Ulcer of right lower extremity: Status: Chronic Code(s): L97.919 - Non-pressure chronic ulcer of unspecified part of right lower leg with unspecified severity (9) Arterial stenosis: Status: Chronic Code(s): I77.1 - Stricture of artery (10) Stenosis of right carotid artery: Status: Chronic Code(s): I65.21 - Occlusion and stenosis of right carotid artery (11) Essential hypertension: Status: Chronic Code(s): I10 - Essential (primary) hypertension Medications at Discharge Home Medications aspirin 81 mg PO DAILY@0800 04/16/17 nitroglycerin 0.4 mg sublingual tablet 0.4 mg SUBLINGUAL Q5-15M PRN #25 tab 06/16/20 gabapentin 100 mg capsule 100 mg PO TID #90 cap 06/17/20 metformin 500 mg tablet 500 mg PO BID #180 tab 06/17/20 collagenase clostridium histo. 250 unit/gram topical ointment 1 applic TOPICAL DAILY #30 g 09/02/20 sodium chloride 0.9 % irrigation solution 1 irrig TOPICAL DAILY #500 ml 09/02/20 dulaglutide 0.75 mg/0.5 mL subcutaneous pen injector 0.75 mg SC QWEEK #1 ml 09/06/20 Test strips #100 ea 09/30/20 alcohol swabs 1 pad TOPICAL BID #100 ea 09/30/20 glucometer 1 ea MC BID #1 device 09/30/20 lancets #100 ea 09/30/20 carvedilol 6.25 mg tablet 6.25 mg PO BID #180 tab 01/26/21 isosorbide mononitrate 30 mg tablet,extended release 24 hr 30 mg PO QAM #90 tab 01/26/21 rosuvastatin 20 mg tablet 20 mg PO DAILY #90 tab 01/26/21 furosemide 20 mg PO BIDLX 30 Days #60 tab 09/16/21 levofloxacin 750 mg PO DAILY #5 tab 09/16/21 sacubitril-valsartan [Entresto] 1 tab PO BID 30 Days #60 tab 09/16/21 spironolactone 12.5 mg PO DAILY 30 Days #15 tab 09/16/21 Hospital Course Operations None Procedures 2-D Echocardiogram Summary of Care Provided Hospital Course: Patient is a 61-year-old male admitted 09/13/21 due to shortness of breath. 1. Acute on chronic heart failure with reduced ejection fraction/ischemic cardiomyopathy-cardiology consulted during admission, patient follows with Dr. Alvarenga. Echo demonstrates an EF of 15%, moderately severe mitral valve insufficiency. Cardiology discussed with patient evaluation at tertiary facility versus continued medical therapy versus palliative/hospice care. Palliative consult placed during admission however patient would like to further discuss with family and decide as outpatient. Plan for continued medical management at this time. Continue Entresto, Aldactone, carvedilol, Imdur, lasix. Follow-up with cardiology as scheduled. 2. Elevated troponin-suspect demand ischemia related to #1. No EKG changes. 3. Bilateral community-acquired pneumonia-chest x-ray with bilateral infiltrates. Afebrile, no leukocytosis. 1/2 blood cultures positive for coag negative staph, suspect contaminant. Given chest x-ray findings, will treat empirically with course of Levaquin. 4. CAD with history of PCI/stent-continue medical management. 5. Bilateral carotid stenosis-previously evaluated by vascular surgery with previous carotid duplex March 2017 demonstrating greater than 80% stenosis of the right internal carotid artery and 50 to 69% stenosis of the left internal carotid artery. Recommend continued outpatient follow-up. Repeat carotid ultrasound demonstrates right internal carotid with greater than 70% stenosis, less than 50% stenosis of the right external carotid artery, left internal carotid artery and left external carotid artery. Continue aspirin, statin. 6. Hypertension-continue current regimen with hold parameters. 7. Hyperlipidemia-continue statin. 8. Type 2 diabetes mellitus-uncontrolled. Continue home regimen with outpatient follow-up. Patient has been noncompliant with diabetic treatment in the past. 9. Chronic diabetic wounds with history of left below the knee amputation-continue dressing changes/outpatient follow-up. 10. Peripheral neuropathy-on gabapentin. 11. Tobacco dependence-encouraged cessation. 12. Severe protein calorie malnutrition-as evidenced by cachectic appearance with muscle and fat loss. BMI 16. Dietitian consult. Physical Exam Const alert, oriented x3 and no apparent distress Constitutional Narrative: Unkempt. Orientation / Consciousness: awake, oriented to person, oriented to place and oriented to time Nutritional Appearance: cachectic HEENT normocephalic and moist oral mucous membranes Eyes PERRL, EOMs intact bilaterally and conjunctivae normal Neck no lymphadenopathy Resp clear to auscultation bilaterally Auscultation: diminished lung sounds Cardio regular rate, regular rhythm and no murmurs Peripheral Pulses: pulses 2+ throughout GI normal to inspection, nondistended, normoactive bowel sounds, non-tender and non-distended Extremity normal to inspection Extremity Narrative: Left BKA Skin no rashes or lesions noted Lesions: no lesions Rashes: no rashes Trauma: no lacerations or abrasions Neuro CN's II-XII intact bilaterally, no focal motor deficits, no sensory deficits noted and deep tendon reflexes 2+ bilaterally Psych mental status grossly normal and affect normal Patient seen and examined prior to discharge. Physical assessment as noted above. Patient is stable for discharge with follow up recommendations as noted above. This patient was seen by Nickie Tuan, [facility] under the supervision of Dr. Parrish. Time spent examining patient, reviewing data and subsequent management of care: 15 Minutes Medical Records Data Medical Nutrition Assessment Dietitian: Malnutrition Criteria Met Start: 09/14/21 12:43 Freq: Status: Active Protocol: Document 09/14/21 12:43 AG (Rec: 09/14/21 12:43 AG [id number]) Nutrition Malnutrition Evidence of Malnutrition Exists Yes Malnutrition (severe): Chronic Evidenced By Suboptimal Energy Intake ( Severe),Physical Changes ( Severe) Clinical Problem Chronic Disease or Condition Related Malnutrition Etiology severe, chronic malnutrition r /t inadequate energy intake Signs/Symptoms as evidenced by estimated PO intake meeting <75% of estimated energy needs >3 months, severe muscle wasting/ fat loss in clavicle, acromion , scapular, orbital, and temporal region per physical exam Status Active Problem Recommendation Dietitian Recommendations/Changes will change diet to regular, no added salt given severe malnutrition; if pt elects to refuse insulin, will adjust diet accordingly. Will recommend kitchen staff to encourage 4-5 servings of CHO/ meal. Will increase Glucerna to 4x/day and fortify foods when possible. Recommend close monitoring of electrolytes given risk for refeeding syndrome. Weight / BMI Weight Weight: 113 lb 1.554 oz Body Mass Index (BMI) 16.4 ABG / Lab / Microbiology Data Result Diagrams: 09/16/21 08:00 09/16/21 08:00 Laboratory: Laboratory Results - last 24 hr 09/15/21 11:16: POC Glucose 265 H 09/15/21 16:05: POC Glucose 310 H 09/15/21 22:18: POC Glucose 215 H 09/16/21 06:46: POC Glucose 207 H 09/16/21 08:00: WBC 6.6, RBC 3.93 L, Hgb 11.2 L, Hct 34.4 L, MCV 87.5 D, MCH 28.5, MCHC 32.6, RDW Std Deviation 42.4, RDW Coeff of [place] 13.2, Plt Count 284, MPV 11.5, Immature Gran % (Auto) 0.300, Neut % (Auto) 57.7, Lymph % (Auto) 31.7, Stewart % (Auto) 9.3, Eos % (Auto) 0.8, Baso % (Auto) 0.2, Absolute Neuts (auto) 3.8, Absolute Lymphs (auto) 2.09, Nucleated RBC % 0 09/16/21 08:00: Sodium 135 L, Potassium 3.7, Chloride 103, Carbon Dioxide 29.0, Anion Gap 3 L, BUN 18, Creatinine 0.60 L, Estim Creat Clear Calc 96.19, Est GFR (MDRD) Af Amer 176, Est GFR (MDRD) Non-Af 145, BUN/Creatinine Ratio 29.8 H, Glucose 182 H, Calcium 8.1 L Microbiology: Microbiology 09/13/21 20:50 Blood Culture (Wb) - Anticubital Right Blood Culture - Preliminary Coag Negative Staph 09/14/21 01:22 Urine, Clean Catch Legionella Antigen - Final 09/14/21 01:22 Urine, Clean Catch Streptococcus pneumoniae Antigen (M - Final 09/13/21 20:40 Nasal Secretion SARS-CoV-2 Antigen (Rapid) - Final Radiography Diagnostic Testing: Radiology Impression Carotid Duplex 09/14/21 19:05 Interpretation Summary Calcific and soft plaque at the proximal right internal carotid artery with greater than 70% stenosis. Less than 50% stenosis right external carotid artery Heterogenous calcific and soft plaque at the proximal left internal carotid artery with less than 50% stenosis Less than 50% stenosis left external carotid artery Patent and antegrade right vertebral artery with nonvisualized left vertebral artery Previous examination of March 20, 2017 suggested greater than 80% stenosis on the right. Clinical correlation would be appropriate Ordering Physician: Dev Alvarenga Performed By: Kevin Kramer RVT D/C Instructions Discharge Diet: 8 Cup Fluid Restriction, 2000 mg Sodium Diet and Carb Control Diet Call your doctor if you observe: Shortness of breath, Dizziness and Chest pain Meaningful Use Info Meaningful Use Diagnoses (Choose all that apply): CHF CHF TIESHA/ARB ordered at discharge?: Yes Documented LVEF (%): 15 Discharge Plan Admission Admit Date/Time: 09/13/21 22:33 Primary Reason for Your Visit: Heart Failure Attending Provider: Marcello Parrish Primary Care Provider: Xiomara Chambers Consulting Providers: Dev Alvarenga Discharge Orders/Prescriptions Prescriptions: New furosemide 20 mg Tablet 20 mg PO BIDLX 30 Days Qty: 60 RF: 0 spironolactone 25 mg Tablet 12.5 mg PO DAILY 30 Days Qty: 15 RF: 0 Entresto 24-26 mg Tablet 1 tab PO BID 30 Days Qty: 60 RF: 0 levofloxacin 750 mg tablet 750 mg PO DAILY Qty: 5 RF: 0 Continued gabapentin 100 mg capsule 100 mg PO TID Qty: 90 RF: 1 metformin 500 mg tablet 500 mg PO BID Qty: 180 RF: 1 Santyl 250 unit/gram ointment 1 applic TOPICAL DAILY Qty: 30 RF: 0 sodium chloride [Sterile Saline] 0.9 % solution 1 irrig TOPICAL DAILY Qty: 500 RF: 0 carvedilol 6.25 mg tablet 6.25 mg PO BID Qty: 180 RF: 3 isosorbide mononitrate 30 mg tablet extended release 24 hr 30 mg PO QAM Qty: 90 RF: 3 rosuvastatin 20 mg tablet 20 mg PO DAILY Qty: 90 RF: 3 alcohol swabs [Alcohol Prep Pads] Pads, Medicated 1 pad TOPICAL BID Qty: 100 RF: 5 glucometer 1 ea MC BID Qty: 1 RF: 0 (DME) lancets See Rx Instructions .Route .MEDSUPPLY Qty: 100 RF: 5 (DME) Test strips See Rx Instructions .Route .MEDSUPPLY Qty: 100 RF: 5 aspirin 81 MG tablet 81 mg PO DAILY@0800 RF: 0 nitroglycerin 0.4 mg tablet, sublingual 0.4 mg SUBLINGUAL Q5-15M PRN (Reason: Chest Pain) Qty: 25 RF: 3 Trulicity 0.75 mg/0.5 mL pen injector 0.75 mg SC QWEEK Qty: 1 RF: 1 Referrals / Follow Up: Xiomara Chambers MD [Primary Care Provider] - 09/20/21 10:00 am Dev Alvarenga MD [STAFF PHYSICIAN] - 09/30/21 1:30 pm (As scheduled 11/28/2021) Disposition Disposition (needs filled in before D/C Order can be placed): Home, Self Care Documented by User: Dr. Marcello Parrish MD 09/16/21 11:26 Providers Date of Admission: 09/13/21 Reason For Visit: ? CAP, POSSIBLE CHF EXACERBATION Medications at Discharge Home Medications aspirin 81 mg PO DAILY@0800 04/16/17 nitroglycerin 0.4 mg sublingual tablet 0.4 mg SUBLINGUAL Q5-15M PRN #25 tab 06/16/20 gabapentin 100 mg capsule 100 mg PO TID #90 cap 06/17/20 metformin 500 mg tablet 500 mg PO BID #180 tab 06/17/20 collagenase clostridium histo. 250 unit/gram topical ointment 1 applic TOPICAL DAILY #30 g 09/02/20 sodium chloride 0.9 % irrigation solution 1 irrig TOPICAL DAILY #500 ml 09/02/20 dulaglutide 0.75 mg/0.5 mL subcutaneous pen injector 0.75 mg SC QWEEK #1 ml 09/06/20 Test strips #100 ea 09/30/20 alcohol swabs 1 pad TOPICAL BID #100 ea 09/30/20 glucometer 1 ea BID #1 device 09/30/20 lancets #100 ea 09/30/20 carvedilol 6.25 mg tablet 6.25 mg PO BID #180 tab 01/26/21 isosorbide mononitrate 30 mg tablet,extended release 24 hr 30 mg PO QAM #90 tab 01/26/21 rosuvastatin 20 mg tablet 20 mg PO DAILY #90 tab 01/26/21 furosemide 20 mg PO BIDLX 30 Days #60 tab 09/16/21 levofloxacin 750 mg PO DAILY #5 tab 09/16/21 sacubitril-valsartan [Entresto] 1 tab PO BID 30 Days #60 tab 09/16/21 spironolactone 12.5 mg PO DAILY 30 Days #15 tab 09/16/21 Hospital Course Operations None Summary of Care Provided Minutes Spent on Discharge: 40 Hospital Course: This patient was seen in conjunction with MAGALIS Rogers . I have independently interviewed and examined the patient and reviewed pertinent historical, laboratory, and other data. Please refer to MAGALIS Rogers note for details of this patient's presentation, findings, and recommendations. I have reviewed MAGALIS Rogers note and concur with documented findings. In brief, patient is a 61-year-old gentleman with history of ischemic cardiomyopathy with an ejection fraction of 20% who presented with progressive shortness of breath. An assessment of acute on chronic congestive heart failure with reduced ejection fraction made admitted to a monitored bed for subsequent management 09/15/2021; patient seen still remains dyspneic at rest despite being on optimal treatment. Did discuss with patient about obtaining palliative care consultation and he was agreeable consult subsequently placed. 09/16/2021; case discussed with the patient as well as cardiology plans for patient to be discharged with palliative care. Patient will follow up with Dr. Alvarenga as outpatient for subsequent referral to [facility] Physical Examination: GENERAL: Frail looking HEENT: Atraumatic; EYES; Anicteric, Normal Conjunctiva NECK; supple, normal thyroid, RESPIRATORY: Diminished to auscultation CARDIOVASCULAR: Regular S1 S2, GI: soft, normoactive bowel sounds, : No Renal angle tenderness; EXTREMITIES: No edema, no clubbing, MUSCULOSKELETAL: no muscle wasting NEURO: Awake; no lateralizing signs. SKIN: No Rash PSYCH; Flat affect Assessment: 1. Acute congestive heart failure with reduced ejection fraction 2. Ischemic cardiomyopathy 3. Elevated troponin 4. Coronary artery disease with previous PCI with stent to proximal LAD and OM1 with subsequent balloon angioplasty 5. Diabetes mellitus type 2 6. Dyslipidemia 7. Essential hypertension 8. Peripheral neuropathy 9. Severe protein calorie malnutrition Recommendations: 1. I have discussed the results of my overview and impressions with the patient 2. Options for management were reviewed Hospital course; as documented above Total time spent by myself and the advanced practice practitioner evaluating patient, reviewing labs, subsequent management decisions, discussion with patient as well as other providers 40 minutes ( 25 of which was spent by myself) ABG / Lab / Microbiology Data Result Diagrams: 09/16/21 08:00 09/16/21 08:00 Discharge Plan Admission Admit Date/Time: 09/13/21 22:33 Primary Reason for Your Visit: Heart Failure Attending Provider: Marcello Parrish Primary Care Provider: Xiomara Chambers Consulting Providers: Dev Alvarenga Discharge Orders/Prescriptions Prescriptions: New furosemide 20 mg Tablet 20 mg PO BIDLX 30 Days Qty: 60 RF: 0 spironolactone 25 mg Tablet 12.5 mg PO DAILY 30 Days Qty: 15 RF: 0 Entresto 24-26 mg Tablet 1 tab PO BID 30 Days Qty: 60 RF: 0 levofloxacin 750 mg tablet 750 mg PO DAILY Qty: 5 RF: 0 Continued gabapentin 100 mg capsule 100 mg PO TID Qty: 90 RF: 1 metformin 500 mg tablet 500 mg PO BID Qty: 180 RF: 1 Santyl 250 unit/gram ointment 1 applic TOPICAL DAILY Qty: 30 RF: 0 sodium chloride [Sterile Saline] 0.9 % solution 1 irrig TOPICAL DAILY Qty: 500 RF: 0 carvedilol 6.25 mg tablet 6.25 mg PO BID Qty: 180 RF: 3 isosorbide mononitrate 30 mg tablet extended release 24 hr 30 mg PO QAM Qty: 90 RF: 3 rosuvastatin 20 mg tablet 20 mg PO DAILY Qty: 90 RF: 3 alcohol swabs [Alcohol Prep Pads] Pads, Medicated 1 pad TOPICAL BID Qty: 100 RF: 5 glucometer 1 ea MC BID Qty: 1 RF: 0 (DME) lancets See Rx Instructions .Route .MEDSUPPLY Qty: 100 RF: 5 (DME) Test strips See Rx Instructions .Route .MEDSUPPLY Qty: 100 RF: 5 aspirin 81 MG tablet 81 mg PO DAILY@0800 RF: 0 nitroglycerin 0.4 mg tablet, sublingual 0.4 mg SUBLINGUAL Q5-15M PRN (Reason: Chest Pain) Qty: 25 RF: 3 Trulicity 0.75 mg/0.5 mL pen injector 0.75 mg SC QWEEK Qty: 1 RF: 1 Referrals / Follow Up: Xiomara Chambers MD [Primary Care Provider] - 09/20/21 10:00 am Dev Alvarenga MD [STAFF PHYSICIAN] - 09/30/21 1:30 pm (As scheduled 11/28/2021) Disposition Disposition (needs filled in before D/C Order can be placed): Home, Self Care Charges/Coding Visit Charges Inpatient E&M: 49686 Disch Hosp Hospital Course Consultations Consultations: Consultations 09/13/21 23:24 Consult: Onc/Wound/felt tipping machine tender Routine Comment: 09/14/21 10:57 Consult: Cardiology Routine Consulting Provider: Dev Alvarenga Reason for Consult: Elevated cardiac ezymes/worsening EF EMERGENT Consult: No MD Notified: Yes Date Notified: 09/14/21 Time Notified: 10:57 Method of Notification: Provider Initiated Operations None
--- NOTE | 2021-09-16 10:54 | CASEMGMT ---
This RN CM to room and pt declines need for HHC or CCN at this time. Pt states ' I need to talk to my daughter once I am home and then we will decide.' Pt encouraged to continue with palliative once home, voices understanding. Pt also aware that he can contact PCP for further resources once home, voices understanding. Pt voices no further questions/concerns/needs. S[place] KARL CM
--- NOTE | 2021-09-16 11:13 | PN.CARD_ITS ---
Subjective Subjective The patient states that his breathing has improved since being in the hospital. 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 Objective Data Vital Signs: Vital Signs Temp Pulse Resp BP Pulse Ox 97.8 F 80 18 113/67 96 09/16/21 08:00 09/16/21 08:05 09/16/21 08:05 09/16/21 08:00 09/16/21 08:05 Oxygen Delivery Method Room Air Weight: 113 lb 1.554 oz Body Mass Index (BMI) 16.4 Intake & Output: Intake and Output for Last 24 Hours 09/14/21 09/15/21 09/16/21 23:59 23:59 23:59 Intake Total 564.25 / 564.25 1420 / 1420 Output Total 500 / 500 1100 / 1100 450 / 450 Balance 64.25 / 64.25 320 / 320 -450 / -450 Lab / Micro Data Result Diagrams: 09/16/21 08:00 09/16/21 08:00 Labs: Laboratory Results - last 24 hr 09/15/21 11:16: POC Glucose 265 H 09/15/21 16:05: POC Glucose 310 H 09/15/21 22:18: POC Glucose 215 H 09/16/21 06:46: POC Glucose 207 H 09/16/21 08:00: WBC 6.6, RBC 3.93 L, Hgb 11.2 L, Hct 34.4 L, MCV 87.5 D, MCH 28.5, MCHC 32.6, RDW Std Deviation 42.4, RDW Coeff of [place] 13.2, Plt Count 284, MPV 11.5, Immature Gran % (Auto) 0.300, Neut % (Auto) 57.7, Lymph % (Auto) 31.7, [place] % (Auto) 9.3, Eos % (Auto) 0.8, Baso % (Auto) 0.2, Absolute Neuts (auto) 3.8, Absolute Lymphs (auto) 2.09, Nucleated RBC % 0 09/16/21 08:00: Sodium 135 L, Potassium 3.7, Chloride 103, Carbon Dioxide 29.0, Anion Gap 3 L, BUN 18, Creatinine 0.60 L, Estim Creat Clear Calc 96.19, Est GFR (MDRD) Af Amer 176, Est GFR (MDRD) Non-Af 145, BUN/Creatinine Ratio 29.8 H, Glucose 182 H, Calcium 8.1 L Micro: Microbiology 09/13/21 20:50 Blood Culture (Wb) - Anticubital Right Blood Culture - Preliminary Coag Negative Staph Cardiology Labs/Tests 09/16/21 08:00: WBC 6.6, RBC 3.93 L, Hgb 11.2 L, Hct 34.4 L, MCV 87.5 D, MCH 28.5, MCHC 32.6, Plt Count 284, MPV 11.5, Immature Gran % (Auto) 0.300, Neut % (Auto) 57.7, Lymph % (Auto) 31.7, [place] % (Auto) 9.3, Eos % (Auto) 0.8, Baso % (Auto) 0.2, Absolute Neuts (auto) 3.8, Nucleated RBC % 0 09/16/21 08:00: Sodium 135 L, Potassium 3.7, Chloride 103, Carbon Dioxide 29.0, Anion Gap 3 L, BUN 18, Creatinine 0.60 L, Est GFR (MDRD) Af Amer 176, Est GFR (MDRD) Non-Af 145, BUN/Creatinine Ratio 29.8 H, Glucose 182 H, Calcium 8.1 L Rhythm: Sinus rhythm Radiography Diagnostic Testing: Radiology Impression Carotid Duplex 09/14/21 19:05 Interpretation Summary Calcific and soft plaque at the proximal right internal carotid artery with greater than 70% stenosis. Less than 50% stenosis right external carotid artery Heterogenous calcific and soft plaque at the proximal left internal carotid artery with less than 50% stenosis Less than 50% stenosis left external carotid artery Patent and antegrade right vertebral artery with nonvisualized left vertebral artery Previous examination of March 20, 2017 suggested greater than 80% stenosis on the right. Clinical correlation would be appropriate Ordering Physician: Dev Alvarenga Performed By: Kevin Kramer RVT Physical Exam Const alert and oriented x3 Constitutional Narrative: Cachectic appearing Orientation / Consciousness: awake HEENT normocephalic, head/scalp atraumatic and hearing grossly normal bilaterally Eyes PERRL, EOMs intact bilaterally and conjunctivae normal Neck full ROM, supple and no JVD Resp clear to auscultation bilaterally Cardio regular rate, regular rhythm, S1 normal heart sound and S2 normal heart sound GI normal to inspection, nondistended, normoactive bowel sounds Extremity no pedal edema Skin no rashes or lesions noted Psych mental status grossly normal Procedure Criteria Type of Procedure Procedure Type: Elective Elective Risks - COVID COVID Risk Discussion: The surgeon/proceduralist and patient have discussed in detail the risk of exposure to and/or potential harm posed by the COVID-19 virus with having a surgery/procedure at this time versus the risk of delaying the surgery/procedure. It is not possible to know either the risk of delaying the surgery or procedure or chance of getting an infection with perfect accuracy, but a joint decision was made between the patient and the surgeon/proceduralist to proceed at this time with the scheduled surgery/procedure as indicated on the consent form. Assessment & Plan Assessment & Plan (1) Heart failure with reduced ejection fraction: Plan: The patient does have heart failure with used to ejection fraction. The patient does appear to be symptomatically improved with adjustment of his medications. He will continue medical therapy at this time. (2) Atherosclerotic heart disease of [place] coronary artery without angina pectoris: Problem Details: 03/2008 PTCA of the LAD-proximal, Diag 1, OM 1 with intracoronary stent, IVUS LAD proximal Qualifiers: [place] vs. transplanted heart: [place] heart Qualified Code(s): I25.10 - Atherosclerotic heart disease of [place] coronary artery without angina pectoris Plan: The patient has a history of underlying CAD. He is gone through remote PCI. As noted before he declined evaluation for CABG. Thus he is continuing medical management. (3) Presence of stent in coronary artery: Problem Details: PCI/stent to prox LAD and OM1, balloon angioplasty to Diagonal 1 03/27/08 Plan: The patient's PCI history is remote. He has undergone subsequent evaluation with noninvasive and invasive studies. He was found to have progression of underlying CAD. He was offered CABG which he declined. Thus he has continued medical therapy. (4) Cardiomyopathy in other diseases classified elsewhere: Plan: The patient does have what is presumed to be an ischemic mediated cardiomyopathy. He has been treated medically. He has declined additional revascularization options. (5) Abnormal cardiac enzyme level: Plan: The patient had abnormal cardiac enzyme levels which are thought, at this time, to be a type II event secondary to his acute on chronic systolic mediated CHF superimposed upon his history of underlying CAD and ischemic mediated cardiomyopathy. (6) Pure hypercholesterolemia: Plan: The patient should continue risk factor evaluation and care/medical therapy as tolerated. (7) Essential hypertension: Plan: The patient's blood pressure is being followed at it has waxed and waned depending upon his medications and his volume status. His medications may have to be adjusted over time to minimize significant hypotension. (8) Bilateral carotid artery stenosis: Plan: The patient does have a history of carotid artery disease. Based upon his carotid duplex study performed yesterday it is noted his right carotid artery has greater than 70% stenosis-internal; his right carotid artery has less than 50% stenosis-external; his left carotid artery has less than 50% stenosis-internal; and his left carotid artery has less than 50% stenosis-e xternal. This would have to be taken into consideration depending upon how the patient proceeds with additional cardiovascular evaluation and/or care. (9) Type 2 diabetes mellitus: Plan: The patient will continue evaluation care per internal medicine. (10) S/P BKA (below knee amputation): Problem Details: Lt LE @ [facility] 05/22/19 Plan: The patient has undergone left lower extremity BKA at [facility] in the past. Plan Detail Other Medications: New: furosemide 20 mg PO BIDLX 30 days 60 tabs 0RF spironolactone 12.5 mg (1/2 x 25 mg) PO DAILY 30 days 15 tabs 0RF sacubitril-valsartan 24-26 mg (Entresto) 1 TAB PO BID 30 days 60 tabs 0RF levofloxacin 750 mg PO DAILY 5 tabs 0RF Health Concerns: The patient, status post a lengthy discussion, states that he did listen to his options from palliative care. At the moment he wants to continue medical therapy and be considered for an outpatient referral to at a tertiary care center such as [facility] with respect to any other options from advanced heart failure or electrophysiology. He states if he has no other options available then he will consider pursuing palliative and/or hospice care. The patient's case has been discussed and reviewed with Dr. Parrish. This note was generated using a voice recognition system and there may be incorrect words, spelling or punctuation that were not noted when reviewing the office note prior to saving.
--- NOTE | 2021-09-23 12:51 | CASEMGMT ---
Fax notification received from [employer] regarding prior authorization needed for pt's Entresto. Per [employer] parts representative, pt has not yet picked up this medication. Prior auth submitted through [employer] with outcome pending. Attempted to contact pt and his daughter on listed cell phone with voicemail received. Message left requesting a return call. Palliative care also noted upon discharge. Contact made with Flor at [facility] for collaboration. Will continue to monitor for authorization response. Shellie Mondragon RN CM
--- NOTE | 2021-09-23 15:19 | CASEMGMT ---
Entresto now approved per covermymeds. GIULIANO case [id number], Garcia:[id number]. Attempted to contact pt and his daughter November (same phone number) to relay information. Voicemail received and message left notifying of authorization and for medication to be obtained from [facility]. Return phone number left for any additional questions or concerns. Feed back from Flor with [facility] states pt has not yet enrolled in their services but will be contacted for a liaison visit in the next few days. Shellie Mondragon RN CM
--- NOTE | 2021-09-27 10:01 | CASEMGMT ---
This RN ZEUS attempted to contact pt and his daughter regarding entresto authorization and receipt of the medication. Voicemail again received and message left requesting a return call. Shellie Mondragon RN CM
== END 2021-09-16 13:27 | disposition home or self-care (01) | DRG 291 ==
LOC: ED 20:27 → PCU 22:47
PROVIDERS: Physician Assistant; Admitting Provider Family Medicine; Emergency Provider Emergency Medicine; PCP Internal Medicine; Visit Provider Internal Medicine
DX: I11.0 Hypertensive heart disease with heart failure (principal); E43 Unspecified severe protein-calorie malnutrition; J15.8 Pneumonia due to other specified bacteria; I50.23 Acute on chronic systolic (congestive) heart failure; J44.0 Chronic obstructive pulmonary disease with (acute) lower respiratory infection; Z68.1 Body mass index [BMI] 19.9 or less, adult; L97.519 Non-pressure chronic ulcer of other part of right foot with unspecified severity; R62.7 Adult failure to thrive; E11.42 Type 2 diabetes mellitus with diabetic polyneuropathy; B96.89 Other specified bacterial agents as the cause of diseases classified elsewhere; E11.51 Type 2 diabetes mellitus with diabetic peripheral angiopathy without gangrene; E11.65 Type 2 diabetes mellitus with hyperglycemia; E11.621 Type 2 diabetes mellitus with foot ulcer; Z79.4 Long term (current) use of insulin; Z89.512 Acquired absence of left leg below knee; I25.10 Atherosclerotic heart disease of native coronary artery without angina pectoris; E78.5 Hyperlipidemia, unspecified; I44.7 Left bundle-branch block, unspecified; I34.0 Nonrheumatic mitral (valve) insufficiency; I25.5 Ischemic cardiomyopathy; F17.210 Nicotine dependence, cigarettes, uncomplicated; I49.3 Ventricular premature depolarization; Z79.82 Long term (current) use of aspirin; Z79.899 Other long term (current) drug therapy
CPT/HCPCS: 36415; 71045; 80048; 80053; 80061; 80076; 82962; 83036; 83605; 83880; 84145; 84443; 84484; 85025; 87040; 87426; 87449; 93005; 93306; 93880; 97161; 97802; 99285; 99406; J7040; J7050; A4216; J1940

== ENCOUNTER 2021-10-24 22:50 | Inpatient (IN) | payer MEDICARE, MEDICAID, SELFPAY ==
[2021-10-24 22:51] VITALS: BP 91/72; PULSE 62; RESP 18; TEMP 36.3; O2SAT 95; BMI 16.5
[2021-10-24 23:08] VITALS: O2SAT 95
--- NOTE | 2021-10-24 23:22 | EKG12_ITS ---
Test Reason : SOB Blood Pressure : / mmHG Vent. Rate : 108 BPM Atrial Rate : 108 BPM P-R Int : 140 ms QRS Dur : 104 ms QT Int : 344 ms P-R-T Axes : 043 021 183 degrees QTc Int : 460 ms Sinus tachycardia Low voltage QRS ST & T wave abnormality, consider lateral ischemia Abnormal ECG Confirmed by NAKUL BELLE, MATT ([id number]), staff editor ALBIN RESENDEZ ([id number]) on 10/27/2021 9:11:12 AM Referred By: PL Confirmed By:MATT MOTA MD
--- NOTE | 2021-10-24 23:22 | RAD_ITS ---
STUDY: AP PORTABLE UPRIGHT CHEST OF 2333 HOURS ON 10/24/2021 REASON FOR EXAM: Male, 61 years old. SOB TECHNIQUE: A single view portable AP upright chest x-ray was performed per protocol. COMPARISON: 09/13/2021. FINDINGS: Normal osseous structures. Mild cardiomegaly with borderline heart failure. Presence of a left lower lobe infiltrative process compatible with pneumonia. In addition, there are mild patchy infiltrates in the right lower lobe, periphery of the right upper lobe, and in the mid left lung. Multiple infiltrates may be indicative of Covid pneumonias. But, there are also mild bilateral pleural effusions, which is often not seen with Covid infections. Similar findings were noted in the previous study of 09/13/2021. RAD/Chest 1 View (Portable) IMPRESSION: 1. Mild cardiomegaly with borderline heart failure. 2. Mild left lower lobe pneumonia. Mild bilateral pleural effusions. 3. Minimal patchy infiltrates in the lateral right upper lobe, right lower lobe, and mid left lower lobe. 4. Normal osseous structures. 5. Similar findings were present in the previous study of 09/13/2021. Electronically Signed: Flako Chung MD at 0:28 EDT ,
--- NOTE | 2021-10-24 23:23 | ED.VIS.DYS ---
HPI History of Present Illness Chief Complaint: Shortness of Breath Informant: patient and family Narrative Narrative: Patient presents with shortness of breath. This has been going on since about a week after he was discharged back in early to mid September. He states it slowly worsening. He does not walk because of an amputation. He wheels with a wheelchair. This does not make him dyspneic. Laying flat does make him dyspneic but he is able to lay on a couple pillows. He denies weight gain. He states he is on Lasix once a day but his med list list twice a day. He does state he took his last Lasix this morning. He states occasionally gets small amounts of chest pain but is not having that regularly. That is kind of a chronic issue that has not changed. He denies a history of COPD or aerosol use but he is a lifelong smoker. He is still smoking. He is not on oxygen. Patient states he has had about 4 stents. His last heart catheterization was about 2 or 3 years ago. He was told they cannot do any more stents. He was told they cannot do bypass surgery. He has a poor ejection fraction. He thought it was about 10% but recent echo shows 15%. He was told that he is not a candidate for an ICD. [facility] Medical History Abnormal cardiac enzyme level Adult failure to thrive Arterial stenosis Atherosclerotic heart disease of [place] coronary artery without angina pectoris Bilateral carotid artery stenosis Bruit of right carotid artery Cardiomyopathy Cardiomyopathy in other diseases classified elsewhere CHF (congestive heart failure) Chronic systolic (congestive) heart failure Claudication Essential hypertension Heart failure with reduced ejection fraction HTN (hypertension) Mitral valvular disorder Old myocardial infarction Peripheral vascular disease Pure hypercholesterolemia Stenosis of right carotid artery Type 2 diabetes mellitus Ulcer of right lower extremity Home Medications aspirin 81 mg PO DAILY@0800 04/16/17 [History Last Taken 04/17/17] nitroglycerin 0.4 mg sublingual tablet 0.4 mg SUBLINGUAL Q5-15M PRN #25 tab 06/16/20 [Rx Last Taken Unknown] gabapentin 100 mg capsule 100 mg PO TID #90 cap 06/17/20 [Rx Last Taken Unknown] metformin 500 mg tablet 500 mg PO BID #180 tab 06/17/20 [Rx Last Taken Unknown] collagenase clostridium histo. 250 unit/gram topical ointment 1 applic TOPICAL DAILY #30 g 09/02/20 [Rx Last Taken Unknown] dulaglutide 0.75 mg/0.5 mL subcutaneous pen injector 0.75 mg SC QWEEK #1 ml 09/06/20 [Rx Last Taken Unknown] Test strips #100 ea 09/30/20 [Rx Last Taken Unknown] alcohol swabs 1 pad TOPICAL BID #100 ea 09/30/20 [Rx Last Taken Unknown] glucometer 1 ea MC BID #1 device 09/30/20 [Rx Last Taken Unknown] lancets #100 ea 09/30/20 [Rx Last Taken Unknown] carvedilol 6.25 mg tablet 6.25 mg PO BID #180 tab 01/26/21 [Rx Last Taken Unknown] isosorbide mononitrate 30 mg tablet,extended release 24 hr 30 mg PO QAM #90 tab 01/26/21 [Rx Last Taken Unknown] rosuvastatin 20 mg tablet 20 mg PO DAILY #90 tab 01/26/21 [Rx Last Taken Unknown] furosemide 20 mg PO BIDLX 30 Days #60 tab 09/16/21 [Rx Last Taken Unknown] levofloxacin 750 mg PO DAILY #5 tab 09/16/21 [Rx Last Taken Unknown] sacubitril-valsartan [Entresto] 1 tab PO BID 30 Days #60 tab 09/16/21 [Rx Last Taken Unknown] spironolactone 12.5 mg PO DAILY 30 Days #15 tab 09/16/21 [Rx Last Taken Unknown] Allergy/AdvReac Type Severity Reaction Status Date / Time Penicillins Allergy Hives Verified 10/24/21 22:54 acetaminophen [From Percocet] AdvReac Other Verified 10/24/21 22:54 oxycodone HCl [From Percocet] AdvReac Other Verified 10/24/21 22:54 Family History Grandfather Myocardial infarction Father Myocardial infarction Heart disease Mother Diabetes CVA (cerebral vascular accident) Myocardial infarction CAD (coronary artery disease) Hypertension Brother CAD (coronary artery disease) Hx CABG, cardiac stents (05-17) Myocardial infarction Brother Family history of brain aneurysm removed Brother CAD (coronary artery disease) hx cardiac stents Sister Diabetes Sister Diabetes Surgical History H/O percutaneous transluminal coronary angioplasty History of tonsillectomy Presence of stent in coronary artery (~03/27/08) S/P BKA (below knee amputation) (~05/22/19) Social History household members: family Smoking Status: Current every day smoker tobacco type: cigarettes alcohol intake: never substance use type: does not use caffeine: Yes Type: carbonated beverages Number of servings: 2 what type of physical activity do you participate in: walking frequency: daily seatbelt use: never do you feel safe at home: Yes ROS ROS ED Constitutional Constitutional ED: Denies chills or fever(s) Eyes Eyes: Denies blurry vision ENT ENT ED: Denies rhinorrhea or sore throat Cardiovascular Cardiovascular: Reports chest pain and orthopnea; Denies palpitations or racing heartbeat Respiratory/Chest Respiratory/Chest: Reports cough, dyspnea and orthopnea; Denies sputum Gastrointestinal Gastrointestinal: Denies abdominal pain, nausea or vomiting Genitourinary Genitourinary ED: Denies dysuria Musculoskeletal Musculoskeletal: Denies myalgias Integumentary Denies rash Neurologic Neurologic: Denies headache(s) Endocrine Endocrinology: Denies polydipsia or polyuria Hematologic/Lymphatic Hematologic/Lymphatic: Denies easy bleeding or easy bruising Allergic/Immunologic Allergic/Immunologic ED: Denies urticaria EXAM Physical Exam Const Vital Signs: 10/24/21 22:51 10/24/21 23:08 10/24/21 23:37 Temperature 97.3 F L Temperature Source Temporal Pulse Rate 62 98 Respiratory Rate 18 18 Respiratory Effort Normal Respiratory Depth Normal Respiratory Pattern Tachypnea Blood Pressure 91/72 Blood Pressure Mean 78 Pulse Ox 95 Oxygen Delivery Method Room Air Room Air 10/24/21 23:45 10/25/21 00:15 10/25/21 00:17 Temperature Temperature Source Pulse Rate 108 H 108 H 113 H Respiratory Rate 20 H Respiratory Effort Respiratory Depth Respiratory Pattern Blood Pressure 85/55 L 82/69 L 80/68 L Blood Pressure Mean 65 73 72 Pulse Ox 95 Oxygen Delivery Method Room Air Positive cachectic and unkempt Constitutional Narrative: Patient is cachectic and somewhat unkempt. But he is awake alert and overall nontoxic. His breathing looks reasonably comfortable just sitting in bed. General Appearance ED: unkempt, cachectic and NAD Nutritional Appearance: cachectic HEENT atraumatic Eyes General Eye ED: Negative for pale conjunctiva or scleral icterus Neck no meningeal signs and no JVD Resp normal respiratory effort Resp Narrative: Respiratory effort is normal sitting in bed. But he does have diffuse rales across the bases. Somewhat distant tones. Auscultation: rales and diminished lung sounds Cardio regular rate Cardio Narrative: Mildly tachycardic rate. The pulse is listed as 62 but he is running about 114 consistently in the room. It does look to be a sinus tachycardia. I do not see PVCs. Rate: tachycardic GI non-tender Palpation: soft Extremity Extremity Narrative: Below the knee amputation left. No peripheral edema. Neuro oriented x3 Sensorium / Orientation: alert Psych mental status grossly normal Appearance: unkempt Skin Lesions: no lesions Rashes: no rashes MDM MDM MDM Narrative Medical decision making narrative: Blood work shows normal CBC. Electrolytes are overall normal with preserved creatinine. Glucose is 250 but he is always high. Troponin is negative this time. BNP is a bit higher at 1070.7. X-ray is multiple readings with cardiomegaly heart failure bilateral pneumonia. Treating similar to 09/13/2021. However, when I look at it looks like he has got increased congestion to me. His exam is more consistent with CHF than pneumonia. He is not having fevers sputum production or elevated white count. We will try to get some Lasix. But his blood pressure is rather low. Despite his low blood pressure he is wide awake alert and does not seem to have symptoms. I do have a lactate ordered. I would like to get this back. I do have hospitalist on page as I am concerned with the patient with slightly lower blood pressure, worsening heart failure and ejection fraction of 15% may be difficult to manage as an outpatient. Lab Data Attestation: I reviewed the patient's lab results. Labs: Laboratory Results - last 24 hr 10/24/21 10/24/21 10/24/21 23:32 23:32 23:32 WBC 6.1 RBC 4.81 Hgb 13.6 Hct 42.3 MCV 87.9 MCH 28.3 MCHC 32.2 RDW Std Deviation 49.7 H RDW Coeff of [place] 15.3 H Plt Count 170 MPV 11.6 Immature Gran % (Auto) 0.800 Neut % (Auto) 60.1 Lymph % (Auto) 31.6 [place] % (Auto) 6.5 Eos % (Auto) 0.7 Baso % (Auto) 0.3 Absolute Neuts (auto) 3.7 Absolute Lymphs (auto) 1.93 Nucleated RBC % 0 Sodium 139 Potassium 4.4 Chloride 104 Carbon Dioxide 33.0 H Anion Gap 2 L BUN 16 Creatinine 0.60 L Estim Creat Clear Calc 97.81 Est GFR (MDRD) Af Amer 177 Est GFR (MDRD) Non-Af 146 BUN/Creatinine Ratio 26.6 H Glucose 250 H Lactic Acid Calcium 9.1 Troponin I High Sens 12 B-Natriuretic Peptide 1070.7 H 10/25/21 00:50 WBC RBC Hgb Hct MCV MCH MCHC RDW Std Deviation RDW Coeff of [place] Plt Count MPV Immature Gran % (Auto) Neut % (Auto) Lymph % (Auto) [place] % (Auto) Eos % (Auto) Baso % (Auto) Absolute Neuts (auto) Absolute Lymphs (auto) Nucleated RBC % Sodium Potassium Chloride Carbon Dioxide Anion Gap BUN Creatinine Estim Creat Clear Calc Est GFR (MDRD) Af Amer Est GFR (MDRD) Non-Af BUN/Creatinine Ratio Glucose Lactic Acid 1.0 Calcium Troponin I High Sens B-Natriuretic Peptide Radiography Diagnostic Testing: Clinical Impression(s) from Imaging Studies Chest X-Ray 10/24/21 23:22 IMPRESSION: 1. Mild cardiomegaly with borderline heart failure. 2. Mild left lower lobe pneumonia. Mild bilateral pleural effusions. 3. Minimal patchy infiltrates in the lateral right upper lobe, right lower lobe, and mid left lower lobe. 4. Normal osseous structures. 5. Similar findings were present in the previous study of 09/13/2021. Electronically Signed: Flako Chung MD at 0:28 EDT , Discharge Plan Dx/Rx/DC Orders Clinical Impression: Acute CHF (congestive heart failure), Blood pressure abnormally low Disposition Disposition: Acute Care Hospital [facility] Discharge Date/Time: 10/25/21 01:17
[2021-10-24 23:37] VITALS: PULSE 98; RESP 18
[2021-10-24] MEDS: Ipratropium/Albuterol Sulfate 3 ML AMPUL.NEB INHALATION (23:37)
[2021-10-24 23:42] LABS: Absolute Lymphocyte Count 1.93 X10^3/uL (0.83-4.51); Absolute Neutrophil Count 3.7 X10^3/uL (2.0-7.7); Basophil# 0.02 X10^3/uL; Basophil% 0.3 % (0-1); Eosinophil# 0.04 X10^3/uL; Eosinophils% 0.7 % (0-5); Hematocrit 42.3 % (40-54); Hemoglobin 13.6 g/dL (13.0-16.5); Lymphocyte # 1.93 X10^3/ul (0.83-4.51); Lymphocyte % 31.6 % (19-41); Mean Corp Hgb Conc 32.2 g/dL (32-36); Mean Corpuscular Hgb 28.3 pg (27.0-32.0); Mean Corpuscular Volume 87.9 fL (80-94); Mean Platelet Vol. 11.6 fl (6.2-12.0); Monocyte% 6.5 % (0-10); NRBC Flagged by Analyzer 0 % (0-5); Neutrophil # 3.67 X10^3/uL (2.7-7.7); Neutrophil % 60.1 % (47-70); Platelet Count 170 K/mm3 (150-450); RBC Distribution Width CV 15.3 % (11.6-14.6); RBC Distribution Width SD 49.7 fl (35.1-43.9); Red Blood Count 4.81 M/mm3 (4.6-6.2); White Blood Count 6.1 K/mm3 (4.4-11.0)
[2021-10-24 23:45] VITALS: BP 85/55; PULSE 108
[2021-10-24 23:58] LABS: Anion Gap 2 (5-15); BNP,B-Type NATRIURETIC PEPTIDE 1070.7 pg/mL (0-100); BUN 16 mg/dL (7-18); BUN/Creat Ratio 26.6 RATIO (10-20); Calcium,Total 9.1 mg/dL (8.5-10.1); Chloride 104 mmol/L (98-107); EST Glomerular Filtration Rate 146 mL/min (>60); Est Glom Filt Rate - Afr Amer 177 mL/min (>60); Estimated Creatinine Clearance 97.81 ml/min; Glucose 250 mg/dL (74-106); Potassium 4.4 mmol/L (3.5-5.1); Sodium Level 139 mmol/L (136-145); Troponin-I HS 12 pg/mL (3.0-78.0)
[2021-10-25] VITALS (41 sets, daily range): BP systolic 61–153; BP diastolic 31–109; PULSE 86–115; RESP 16–26; TEMP 36.1–37; O2SAT 88–98; BMI 16.2
--- NOTE | 2021-10-25 01:13 | PCM.HP.STD ---
Documented by User: MAGALIS Tyson 10/25/21 01:25 HPI - General General Date of Admission: 10/25/21 Date of Service: 10/25/21 Chief Complaint: Shortness of breath HPI Narrative JC LITTLE, is a 61 M who presents with complaints of increased shortness of breath. Patient was hospitalized last month for similar symptoms. Patient has a history of chronic systolic congestive heart failure with an EF of 15%. Patient follows with Dr. Alvarenga and during last admission patient was placed on palliative care due to his decreased EF and poor quality of life. Patient states that when he was seen by palliative care last month he was told that he has anywhere from 6 months to 1 year to live. Patient want to continue with treatment to get as much time with his grandkids as possible. BNP in ER 1070.7 with multiple effusions seen on x-ray. Patient will be admitted for cardiac monitoring and cardiology will be consulted. Patient also has a significant history of diabetes mellitus type 2 with neuropathy and hyperlipidemia. PENDING SALE TO [facility] Medical History (Updated 10/26/21 @ 13:20 by Makayla Hernandez NP-Hernandez) Abnormal cardiac enzyme level Adult failure to thrive Arterial stenosis Atherosclerotic heart disease of [place] coronary artery without angina pectoris Bilateral carotid artery stenosis Bruit of right carotid artery CAD (coronary artery disease) Cardiomyopathy Cardiomyopathy Cardiomyopathy in other diseases classified elsewhere Carotid artery disease CHF (congestive heart failure) Chronic systolic (congestive) heart failure Claudication Essential hypertension Heart failure with reduced ejection fraction HLD (hyperlipidemia) HTN (hypertension) HTN (hypertension) Mitral valvular disorder Old myocardial infarction Peripheral vascular disease Pure hypercholesterolemia Stenosis of right carotid artery Type 2 diabetes mellitus Ulcer of right lower extremity Home Medications aspirin 81 mg PO DAILY@0800 04/16/17 [History Last Taken 04/17/17] nitroglycerin 0.4 mg sublingual tablet 0.4 mg SUBLINGUAL Q5-15M PRN #25 tab 06/16/20 [Rx Last Taken Unknown] Test strips #100 ea 09/30/20 [Rx Last Taken Unknown] glucometer 1 ea MC BID #1 device 09/30/20 [Rx Last Taken Unknown] lancets #100 ea 09/30/20 [Rx Last Taken Unknown] rosuvastatin 20 mg tablet 20 mg PO DAILY #90 tab 01/26/21 [Rx Last Taken Unknown] spironolactone 12.5 mg PO DAILY 30 Days #15 tab 09/16/21 [Rx Last Taken Unknown] acetaminophen 325 mg tablet 650 mg PO Q4H PRN tab 11/02/21 [History Last Taken Unknown] furosemide 20 mg tablet 20 mg PO DAILY tab 11/02/21 [History Last Taken Unknown] lisinopril 5 mg tablet 5 mg PO DAILY 11/02/21 [History Last Taken Unknown] metformin 500 mg tablet 1,000 mg PO BID tab 11/02/21 [History Last Taken Unknown] polyethylene glycol 3350 17 gram oral powder packet 17 g PO DAILY 11/02/21 [History Last Taken Unknown] sennosides 8.6 mg tablet 8.6 mg PO DAILY 11/02/21 [History Last Taken Unknown] sertraline 25 mg tablet 25 mg PO DAILY 11/02/21 [History Last Taken Unknown] Allergy/AdvReac Type Severity Reaction Status Date / Time Penicillins Allergy Hives Verified 10/24/21 22:54 acetaminophen [From Percocet] AdvReac Other Verified 10/24/21 22:54 oxycodone HCl [From Percocet] AdvReac Other Verified 10/24/21 22:54 Family History Grandfather Myocardial infarction Father Myocardial infarction Heart disease Mother Diabetes CVA (cerebral vascular accident) Myocardial infarction CAD (coronary artery disease) Hypertension Brother CAD (coronary artery disease) Hx CABG, cardiac stents (05-17) Myocardial infarction Brother Family history of brain aneurysm removed Brother CAD (coronary artery disease) hx cardiac stents Sister Diabetes Sister Diabetes Surgical History (Updated 10/25/21 @ 09:[address] Dev Alvarenga MD) H/O percutaneous transluminal coronary angioplasty History of tonsillectomy Presence of stent in coronary artery (~03/27/08) S/P BKA (below knee amputation) (~05/22/19) S/P PTCA (percutaneous transluminal coronary angioplasty) Social History household members: family Smoking Status: Current every day smoker tobacco type: cigarettes alcohol intake: never substance use type: does not use caffeine: Yes Type: carbonated beverages Number of servings: 2 what type of physical activity do you participate in: walking frequency: daily seatbelt use: never do you feel safe at home: Yes ROS Constitutional Constitutional: Denies anorexia, chills, fatigue, fever(s), malaise or weakness Cardiovascular Cardiovascular: Reports edema; Denies chest pain, palpitations or syncope Respiratory/Chest Respiratory/Chest: Reports shortness of breath at rest and shortness of breath with exertion; Denies cough or wheezing Gastrointestinal Gastrointestinal: Denies abdominal pain, constipation, diarrhea, nausea or vomiting Genitourinary Genitourinary: Denies dysuria Musculoskeletal Musculoskeletal: Denies back pain, extremity pain, joint pain, joint stiffness or joint swelling Integumentary Integumentary: Denies dry skin Neurologic Neurologic: Denies abnormal gait, abnormal speech, confusion, dizziness or focal weakness Psychiatric Psychiatric: Denies anxiety or depression Endocrine Endocrinology: Denies change in body appearance Hematologic/Lymphatic Hematologic/Lymphatic: Denies anemia Vital Signs Vital Signs Vital Signs: 10/24/21 22:51 10/24/21 23:08 10/24/21 23:37 Temperature 97.3 F L Temperature Source Temporal Pulse Rate 62 98 Respiratory Rate 18 18 Respiratory Effort Normal Respiratory Depth Normal Respiratory Pattern Tachypnea Blood Pressure 91/72 Blood Pressure Mean 78 Pulse Ox 95 Oxygen Delivery Method Room Air Room Air 10/24/21 23:45 10/25/21 00:15 10/25/21 00:17 Temperature Temperature Source Pulse Rate 108 H 108 H 113 H Respiratory Rate 20 H Respiratory Effort Respiratory Depth Respiratory Pattern Blood Pressure 85/55 L 82/69 L 80/68 L Blood Pressure Mean 65 73 72 Pulse Ox 95 Oxygen Delivery Method Room Air Weight Weight: 115 lb Body Mass Index (BMI) 16.5 Physical Exam Const alert, oriented x3 and no apparent distress General Appearance: cooperative HEENT normocephalic and head/scalp atraumatic Eyes conjunctivae normal and no scleral icterus Neck supple General: trachea midline Lymph Lymphatic: no lymphadenopathy noted Resp normal respiratory effort and normal air movement Auscultation: wheezes expiratory wheezes, scattered wheezes and throughout Cardio regular rate, regular rhythm and peripheral pulses 2+ throughout Rate: tachycardic GI normal to inspection, nondistended, normoactive bowel sounds, soft to palpation and non-tender Extremity normal capillary refill General Extremity: edema right lower extremity moderate and bilateral and no tenderness to palpation of joints or extremities Skin General Skin Exam: no breakdown and turgor normal Lesions: no lesions Rashes: no rashes Neuro no focal motor deficits and no sensory deficits noted Speech: speech normal Motor Exam: Negative for general weakness Psych affect normal Appearance: unkempt Mood & Affect: tearful Results Lab / Micro Data Result Diagrams: 10/26/21 03:00 10/26/21 03:00 Labs: Laboratory Results - last 24 hr 10/24/21 23:32: WBC 6.1, RBC 4.81, Hgb 13.6, Hct 42.3, MCV 87.9, MCH 28.3, MCHC 32.2, RDW Std Deviation 49.7 H, RDW Coeff of [place] 15.3 H, Plt Count 170, MPV 11.6, Immature Gran % (Auto) 0.800, Neut % (Auto) 60.1, Lymph % (Auto) 31.6, [place] % (Auto) 6.5, Eos % (Auto) 0.7, Baso % (Auto) 0.3, Absolute Neuts (auto) 3.7, Absolute Lymphs (auto) 1.93, Nucleated RBC % 0 10/24/21 23:32: Sodium 139, Potassium 4.4, Chloride 104, Carbon Dioxide 33.0 H, Anion Gap 2 L, BUN 16, Creatinine 0.60 L, Estim Creat Clear Calc 97.81, Est GFR (MDRD) Af Amer 177, Est GFR (MDRD) Non-Af 146, BUN/Creatinine Ratio 26.6 H, Glucose 250 H, Calcium 9.1, Troponin I High Sens 12 10/24/21 23:32: B-Natriuretic Peptide 1070.7 H Radiology Impression Chest X-Ray 10/24/21 23:22 IMPRESSION: 1. Mild cardiomegaly with borderline heart failure. 2. Mild left lower lobe pneumonia. Mild bilateral pleural effusions. 3. Minimal patchy infiltrates in the lateral right upper lobe, right lower lobe, and mid left lower lobe. 4. Normal osseous structures. 5. Similar findings were present in the previous study of 09/13/2021. Electronically Signed: Flako Chung MD at 0:28 EDT , Assessment & Plan Assessment/Plan (1) Acute CHF (congestive heart failure): QUALIFIERS: Heart failure type: systolic Qualified Code(s): I50.21 - Acute systolic (congestive) heart failure PLAN: 1. Acute on chronic systolic congestive heart failure with reduced EF -Admit to U for cardiac monitoring -Increase p.o. Lasix from daily to twice daily -Trend cardiac enzymes -Elevate bilateral lower extremities -Daily weights -Intake and output -Cardiac heart healthy diet -CBC and BMP daily -Oxygen per protocol -Twelve-lead EKG daily -Continue carvedilol, furosemide, isosorbide, Entresto, spironolactone with hold parameters for BP 2. Diabetes mellitus type 2 with neuropathy -ACH S blood sugars with sliding scale insulin ordered -Continue patient's home medication regimen of Metformin, will hold Trulicity -Continue gabapentin 3. Hyperlipidemia -Continue rosuvastatin 4. Peripheral vascular disease -Continue aspirin DVT prophylaxis-subcu Lovenox This patient was seen by MAGALIS Tyson under the supervision of Dr. Anderson. 32 minutes spent in clinical coordination of patient's plan of care. Documented by User: Dr. Dev Anderson MD 11/07/21 18:53 HPI - General General Date of Admission: 10/25/21 PENDING SALE TO [facility] Medical History (Updated 10/26/21 @ 13:20 by Makayla Hernandez NP-C) Abnormal cardiac enzyme level Adult failure to thrive Arterial stenosis Atherosclerotic heart disease of [place] coronary artery without angina pectoris Bilateral carotid artery stenosis Bruit of right carotid artery CAD (coronary artery disease) Cardiomyopathy Cardiomyopathy Cardiomyopathy in other diseases classified elsewhere Carotid artery disease CHF (congestive heart failure) Chronic systolic (congestive) heart failure Claudication Essential hypertension Heart failure with reduced ejection fraction HLD (hyperlipidemia) HTN (hypertension) HTN (hypertension) Mitral valvular disorder Old myocardial infarction Peripheral vascular disease Pure hypercholesterolemia Stenosis of right carotid artery Type 2 diabetes mellitus Ulcer of right lower extremity Home Medications aspirin 81 mg PO DAILY@0800 04/16/17 [History Last Taken 04/17/17] nitroglycerin 0.4 mg sublingual tablet 0.4 mg SUBLINGUAL Q5-15M PRN #25 tab 06/16/20 [Rx Last Taken Unknown] Test strips #100 ea 09/30/20 [Rx Last Taken Unknown] glucometer 1 ea MC BID #1 device 09/30/20 [Rx Last Taken Unknown] lancets #100 ea 09/30/20 [Rx Last Taken Unknown] rosuvastatin 20 mg tablet 20 mg PO DAILY #90 tab 01/26/21 [Rx Last Taken Unknown] spironolactone 12.5 mg PO DAILY 30 Days #15 tab 09/16/21 [Rx Last Taken Unknown] acetaminophen 325 mg tablet 650 mg PO Q4H PRN tab 11/02/21 [History Last Taken Unknown] furosemide 20 mg tablet 20 mg PO DAILY tab 11/02/21 [History Last Taken Unknown] lisinopril 5 mg tablet 5 mg PO DAILY 11/02/21 [History Last Taken Unknown] metformin 500 mg tablet 1,000 mg PO BID tab 11/02/21 [History Last Taken Unknown] polyethylene glycol 3350 17 gram oral powder packet 17 g PO DAILY 11/02/21 [History Last Taken Unknown] sennosides 8.6 mg tablet 8.6 mg PO DAILY 11/02/21 [History Last Taken Unknown] sertraline 25 mg tablet 25 mg PO DAILY 11/02/21 [History Last Taken Unknown] Allergy/AdvReac Type Severity Reaction Status Date / Time Penicillins Allergy Hives Verified 10/24/21 22:54 acetaminophen [From Percocet] AdvReac Other Verified 10/24/21 22:54 oxycodone HCl [From Percocet] AdvReac Other Verified 10/24/21 22:54 Family History Grandfather Myocardial infarction Father Myocardial infarction Heart disease Mother Diabetes CVA (cerebral vascular accident) Myocardial infarction CAD (coronary artery disease) Hypertension Brother CAD (coronary artery disease) Hx CABG, cardiac stents (05-17) Myocardial infarction Brother Family history of brain aneurysm removed Brother CAD (coronary artery disease) hx cardiac stents Sister Diabetes Sister Diabetes Surgical History (Updated 10/25/21 @ 09:[address] Dev Alvarenga MD) H/O percutaneous transluminal coronary angioplasty History of tonsillectomy Presence of stent in coronary artery (~03/27/08) S/P BKA (below knee amputation) (~05/22/19) S/P PTCA (percutaneous transluminal coronary angioplasty) Social History household members: family Smoking Status: Current every day smoker tobacco type: cigarettes alcohol intake: never substance use type: does not use caffeine: Yes Type: carbonated beverages Number of servings: 2 what type of physical activity do you participate in: walking frequency: daily seatbelt use: never do you feel safe at home: Yes Results Lab / Micro Data Result Diagrams: 10/26/21 03:00 10/26/21 03:00 Charges/Coding Addendum Addendum: seen and examined agree with above assessment and plan
[2021-10-25] MEDS: Furosemide 20 MG Tablet PO (02:25)
[2021-10-25] MEDS: 0.9% Saline Lock 10 ML Syringe IV (02:48)
[2021-10-25 03:10] LABS: Troponin-I HS 13 pg/mL (3.0-78.0)
--- NOTE | 2021-10-25 05:55 | EKG12_ITS ---
Test Reason : AM EKG Blood Pressure : / mmHG Vent. Rate : 105 BPM Atrial Rate : 105 BPM P-R Int : 158 ms QRS Dur : 110 ms QT Int : 352 ms P-R-T Axes : 044 005 158 degrees QTc Int : 465 ms Sinus tachycardia Low voltage QRS Incomplete left bundle branch block ST & T wave abnormality, consider lateral ischemia Abnormal ECG Confirmed by ELDON BELLE, JEANNETTE ([id number]), publishing editor ALBIN RESENDEZ [id number]) on 10/26/2021 8:54:05 AM Referred By: JEWEL Confirmed By:JEANNETTE COLÓN MD
[2021-10-25 06:00] LABS: Absolute Lymphocyte Count 1.84 X10^3/uL (0.83-4.51); Absolute Neutrophil Count 3.3 X10^3/uL (2.0-7.7); Basophil# 0.02 X10^3/uL; Basophil% 0.4 % (0-1); Eosinophil# 0.04 X10^3/uL; Eosinophils% 0.7 % (0-5); Hematocrit 38.4 % (40-54); Hemoglobin 12.5 g/dL (13.0-16.5); Lymphocyte # 1.84 X10^3/ul (0.83-4.51); Lymphocyte % 32.7 % (19-41); Mean Corp Hgb Conc 32.6 g/dL (32-36); Mean Corpuscular Hgb 28.7 pg (27.0-32.0); Mean Corpuscular Volume 88.1 fL (80-94); Mean Platelet Vol. 11.6 fl (6.2-12.0); Monocyte# 0.42 X10^3/uL; Monocyte% 7.5 % (0-10); NRBC Flagged by Analyzer 0 % (0-5); Neutrophil % 58.5 % (47-70); Platelet Count 145 K/mm3 (150-450); RBC Distribution Width CV 15.2 % (11.6-14.6); RBC Distribution Width SD 49.3 fl (35.1-43.9); Red Blood Count 4.36 M/mm3 (4.6-6.2); White Blood Count 5.6 K/mm3 (4.4-11.0)
[2021-10-25 06:26] LABS: Bedside Glucose 343 mg/dL (74-106)
[2021-10-25] MEDS: Insulin Lispro 100 UNIT/ML INSULN.PEN SC ×3 (06:30→21:39)
[2021-10-25] MEDS: Gabapentin 100 MG Capsule PO ×2 (06:30→21:37)
[2021-10-25 06:40] LABS: Troponin-I HS 14 pg/mL (3.0-78.0)
[2021-10-25 06:47] LABS: Anion Gap 2 (5-15); BUN 17 mg/dL (7-18); BUN/Creat Ratio 35.2 RATIO (10-20); Calcium,Total 8.3 mg/dL (8.5-10.1); Chloride 104 mmol/L (98-107); Creatinine, Serum 0.48 mg/dL (0.70-1.30); EST Glomerular Filtration Rate 188 mL/min (>60); Est Glom Filt Rate - Afr Amer 228 mL/min (>60); Glucose 304 mg/dL (74-106); Sodium Level 137 mmol/L (136-145)
[2021-10-25] MEDS: Spironolactone 25 MG Tablet 12.5 MG PO (08:37)
[2021-10-25] MEDS: Isosorbide Mononitrate 30 MG Tablet PO (08:37)
[2021-10-25] MEDS: SACUBITRIL/VALSARTAN 24/26 MG TABLET 1 EACH PO (08:37)
[2021-10-25] MEDS: Carvedilol 6.25 MG Tablet PO (08:37)
[2021-10-25] MEDS: Aspirin E.C. 81 MG Tablet PO (08:37)
[2021-10-25] MEDS: Collagenase 30gm Tube 1 APPLIC TOPICAL (08:38)
[2021-10-25] MEDS: Enoxaparin 40 MG/0.4 ML Syringe SC (08:38)
[2021-10-25] MEDS: Furosemide 20 MG/2 ML VIAL IV (08:41)
--- NOTE | 2021-10-25 08:55 | PCM.CONS.C ---
Assessment & Plan Assessment/Plan (1) Acute CHF (congestive heart failure): QUALIFIERS: Heart failure type: systolic Qualified Code(s): I50.21 - Acute systolic (congestive) heart failure PLAN: The patient presents with recurrent acute on chronic systolic mediated CHF. His cardiac enzymes-troponin I levels-are negative at this time. He has undergone noninvasive and invasive valuation in the past as noted. He will continue medical therapy. This will include altering his oral diuretics to IV diuretics and monitoring his volume response, vital signs, and renal function. (2) CAD (coronary artery disease): PLAN: The patient has history of CAD. He has undergone previous noninvasive and invasive evaluation and revascularization therapy as noted. As noted by his previous cardiovascular medical records he had been offered revascularization therapy with CABG in the past at [facility]. He had declined. He had also undergone reevaluation at [facility]. He had continued medical therapy at that time. At the moment he will continue medical management. (3) S/P PTCA (percutaneous transluminal coronary angioplasty): PLAN: His previous revascularization history as noted. Again he will continue medical therapy at this time. (4) Cardiomyopathy: PLAN: He is undergone recent noninvasive evaluation. His transthoracic echocardiogram is noted. He will continue medical management at this time. As per previous cardiovascular medical records the patient has been offered ICD therapy in the past. In the past he has declined ICD therapy. He states he would be willing to be evaluated as an outpatient at a tertiary care center as to whether or not he is still a candidate for ICD therapy depending upon his overall clinical condition. (5) Carotid artery disease: PLAN: He does have a history of carotid artery disease. He has undergone evaluation for this in the past. This would have to be taken into consideration with his future cardiovascular evaluation and care. (6) HLD (hyperlipidemia): PLAN: He should continue risk factor modification medical therapy as he is able. (7) HTN (hypertension): PLAN: His blood pressure will need to be monitored with his medicines adjusted accordingly. Addt'l Comments As previous, a lengthy conversation was held with the patient regarding his cardiovascular history and current clinical course. At the present time the patient states that he wants to continue medical therapy, he would still be interested in pursuing an outpatient cardiovascular evaluation at [facility] and states he would need to discuss with his family member why he has not received the telephone calls placed to and from [facility] or the letter sent to him from [facility]. At the same time he states he wants to be reassessed by palliative care. He also notes that he may need to go to an extended care facility to receive continued medical therapy as this may not be able to be provided to him by his family members. The patient's case was discussed and reviewed with Dr. Robles. HPI Consult Data Date of Consult: 10/25/21 HPI Narrative HPI Narrative: JC LITTLE, is a 61 year old white male who presents for recurrent acute on chronic systolic mediated CHF superimposed upon a history of underlying CAD, PCI, ischemic mediated cardiomyopathy, bilateral carotid artery stenosis, hyperlipidemia, hypertension, diabetes mellitus, and status post left BKA ([facility]-2019). He was recently evaluated at [facility] for similar type findings on 09-14-2021. He underwent medical management. He was eventually released home for continued outpatient follow-up. However, while at [facility] he was evaluated by palliative care. He also requested a tertiary care center outpatient evaluation for advanced heart failure options. Thus his case was referred to [facility] advanced heart failure team. According to information received from [facility] they have attempted to contact the patient via telephone with no answer and subsequently via hardcopy mail with a request to contact them to establish an outpatient cardiovascular visit. He states he has not received any hardcopy mail. He does comment that his daughter answers the phone and will not answer telephone calls that she does not recognize the number and his daughter also receives the incoming and outgoing male. He notes overall he has been progressively short of breath and dyspneic. He is describe symptoms of orthopnea. He states he has become more tired and more fatigued and more worn out feeling. He denies ongoing chest discomfort. He has not recognized any palpitations or rapid rates. There is been no report of loss of consciousness. He presented back to the [facility] emergency department for reevaluation. His cardiac enzymes were negative. His ECG demonstrated sinus tachycardia with low voltage QRS in the limb leads with an incomplete left bundle branch block pattern and nonspecific ST/T wave changes. His chest x-ray demonstrated concerns of increased pulmonary vascularity and/or infiltrates as well as mild bilateral pleural effusions and per radiology concerns of mild left lower lobe pneumonia. He was treated medically with oral diuretic therapy. He states he has had no significant urinary output since being brought into the hospital. [facility] Medical History (Updated 10/25/21 @ 09:[address] Dev Alvarenga MD) Abnormal cardiac enzyme level Adult failure to thrive Arterial stenosis Atherosclerotic heart disease of lime coronary artery without angina pectoris Bilateral carotid artery stenosis Bruit of right carotid artery CAD (coronary artery disease) Cardiomyopathy Cardiomyopathy Cardiomyopathy in other diseases classified elsewhere Carotid artery disease CHF (congestive heart failure) Chronic systolic (congestive) heart failure Claudication Essential hypertension Heart failure with reduced ejection fraction HLD (hyperlipidemia) HTN (hypertension) HTN (hypertension) Mitral valvular disorder Old myocardial infarction Peripheral vascular disease Pure hypercholesterolemia Stenosis of right carotid artery Type 2 diabetes mellitus Ulcer of right lower extremity Home Medications aspirin 81 mg PO DAILY@0800 04/16/17 [History Last Taken 04/17/17] nitroglycerin 0.4 mg sublingual tablet 0.4 mg SUBLINGUAL Q5-15M PRN #25 tab 06/16/20 [Rx Last Taken Unknown] gabapentin 100 mg capsule 100 mg PO TID #90 cap 06/17/20 [Rx Last Taken Unknown] metformin 500 mg tablet 500 mg PO BID #180 tab 06/17/20 [Rx Last Taken Unknown] collagenase clostridium histo. 250 unit/gram topical ointment 1 applic TOPICAL DAILY #30 g 09/02/20 [Rx Last Taken Unknown] dulaglutide 0.75 mg/0.5 mL subcutaneous pen injector 0.75 mg SC QWEEK #1 ml 09/06/20 [Rx Last Taken Unknown] Test strips #100 ea 09/30/20 [Rx Last Taken Unknown] alcohol swabs 1 pad TOPICAL BID #100 ea 09/30/20 [Rx Last Taken Unknown] glucometer 1 ea MC BID #1 device 09/30/20 [Rx Last Taken Unknown] lancets #100 ea 09/30/20 [Rx Last Taken Unknown] carvedilol 6.25 mg tablet 6.25 mg PO BID #180 tab 01/26/21 [Rx Last Taken Unknown] isosorbide mononitrate 30 mg tablet,extended release 24 hr 30 mg PO QAM #90 tab 01/26/21 [Rx Last Taken Unknown] rosuvastatin 20 mg tablet 20 mg PO DAILY #90 tab 01/26/21 [Rx Last Taken Unknown] furosemide 20 mg PO BIDLX 30 Days #60 tab 09/16/21 [Rx Last Taken Unknown] levofloxacin 750 mg PO DAILY #5 tab 09/16/21 [Rx Last Taken Unknown] sacubitril-valsartan [Entresto] 1 tab PO BID 30 Days #60 tab 09/16/21 [Rx Last Taken Unknown] spironolactone 12.5 mg PO DAILY 30 Days #15 tab 09/16/21 [Rx Last Taken Unknown] Allergy/AdvReac Type Severity Reaction Status Date / Time Penicillins Allergy Hives Verified 10/24/21 22:54 acetaminophen [From Percocet] AdvReac Other Verified 10/24/21 22:54 oxycodone HCl [From Percocet] AdvReac Other Verified 10/24/21 22:54 Family History Grandfather Myocardial infarction Father Myocardial infarction Heart disease Mother Diabetes CVA (cerebral vascular accident) Myocardial infarction CAD (coronary artery disease) Hypertension Brother CAD (coronary artery disease) Hx CABG, cardiac stents (05-17) Myocardial infarction Brother Family history of brain aneurysm removed Brother CAD (coronary artery disease) hx cardiac stents Sister Diabetes Sister Diabetes Surgical History (Updated 10/25/21 @ 09:[address] Dev Alvarenga MD) H/O percutaneous transluminal coronary angioplasty History of tonsillectomy Presence of stent in coronary artery (~03/27/08) S/P BKA (below knee amputation) (~05/22/19) S/P PTCA (percutaneous transluminal coronary angioplasty) Social History household members: family Smoking Status: Current every day smoker tobacco type: cigarettes alcohol intake: never substance use type: does not use caffeine: Yes Type: carbonated beverages Number of servings: 2 what type of physical activity do you participate in: walking frequency: daily seatbelt use: never do you feel safe at home: Yes ROS Constitutional Constitutional: Reports fatigue Eyes Eyes: Reports as per HPI ENT HEENT: Reports as per HPI Cardiovascular Cardiovascular: Reports dyspnea and orthopnea Respiratory/Chest Respiratory/Chest: Reports dyspnea Gastrointestinal Gastrointestinal: Reports as per HPI Genitourinary Genitourinary: Reports as per HPI Musculoskeletal Musculoskeletal: Reports as per HPI Integumentary Integumentary: Reports as per HPI Neurologic Neurologic: Reports as per HPI Psychiatric Psychiatric: Reports as per HPI Physical Exam Const alert and oriented x3 Constitutional Narrative: Tired appearing Orientation / Consciousness: awake HEENT normocephalic, head/scalp atraumatic and hearing grossly normal bilaterally Eyes PERRL, EOMs intact bilaterally and conjunctivae normal Neck full ROM, supple and no JVD Resp Auscultation: rales bilateral base Cardio regular rate, regular rhythm, S1 normal heart sound and S2 normal heart sound GI normal to inspection, nondistended, normoactive bowel sounds Extremity no pedal edema Extremity Narrative: Left lower extremity: BKA Skin no rashes or lesions noted Neuro oriented x3 and moves all extremities Psych Psych Narrative: Depressed appearing Risk Stratification Risk Stratification Applicable: No Objective Data Vital Signs: Vital Signs Temp Pulse Resp BP Pulse Ox 98.6 F 112 H 18 153/59 H 93 10/25/21 08:33 10/25/21 08:33 10/25/21 08:33 10/25/21 08:33 10/25/21 08:33 Oxygen Flow Rate (L/min) 2 Oxygen Delivery Method Room Air Weight: 112 lb 14.027 oz Body Mass Index (BMI) 16.2 Intake & Output: Intake and Output for Last 24 Hours 10/23/21 10/24/21 10/25/21 23:59 23:59 23:59 Intake Total 100 / 100 Balance 100 / 100 Lab / Micro Data Result Diagrams: 10/25/21 05:28 10/25/21 05:28 Labs: Laboratory Results - last 24 hr 10/24/21 23:32: WBC 6.1, RBC 4.81, Hgb 13.6, Hct 42.3, MCV 87.9, MCH 28.3, MCHC 32.2, RDW Std Deviation 49.7 H, RDW Coeff of Oneyda 15.3 H, Plt Count 170, MPV 11.6, Immature Gran % (Auto) 0.800, Neut % (Auto) 60.1, Lymph % (Auto) 31.6, Treasure % (Auto) 6.5, Eos % (Auto) 0.7, Baso % (Auto) 0.3, Absolute Neuts (auto) 3.7, Absolute Lymphs (auto) 1.93, Nucleated RBC % 0 10/24/21 23:32: Sodium 139, Potassium 4.4, Chloride 104, Carbon Dioxide 33.0 H, Anion Gap 2 L, BUN 16, Creatinine 0.60 L, Estim Creat Clear Calc 97.81, Est GFR (MDRD) Af Amer 177, Est GFR (MDRD) Non-Af 146, BUN/Creatinine Ratio 26.6 H, Glucose 250 H, Calcium 9.1, Troponin I High Sens 12 10/24/21 23:32: B-Natriuretic Peptide 1070.7 H 10/25/21 00:50: Lactic Acid 1.0 10/25/21 02:46: Troponin I High Sens 13 10/25/21 05:28: WBC 5.6, RBC 4.36 L, Hgb 12.5 L, Hct 38.4 L, MCV 88.1, MCH 28.7, MCHC 32.6, RDW Std Deviation 49.3 H, RDW Coeff of Oneyda 15.2 H, Plt Count 145 L, MPV 11.6, Immature Gran % (Auto) 0.200, Neut % (Auto) 58.5, Lymph % (Auto) 32.7, Treasure % (Auto) 7.5, Eos % (Auto) 0.7, Baso % (Auto) 0.4, Absolute Neuts (auto) 3.3, Absolute Lymphs (auto) 1.84, Nucleated RBC % 0 10/25/21 05:28: Sodium 137, Potassium 4.0, Chloride 104, Carbon Dioxide 31.0, Anion Gap 2 L, BUN 17, Creatinine 0.48 L, Estim Creat Clear Calc 120.00, Est GFR (MDRD) Af Amer 228, Est GFR (MDRD) Non-Af 188, BUN/Creatinine Ratio 35.2 H, Glucose 304 H, Calcium 8.3 L 10/25/21 05:28: Troponin I High Sens 14 10/25/21 06:18: POC Glucose 343 H Cardiology Labs/Tests 10/24/21 23:32: WBC 6.1, RBC 4.81, Hgb 13.6, Hct 42.3, MCV 87.9, MCH 28.3, MCHC 32.2, Plt Count 170, MPV 11.6, Immature Gran % (Auto) 0.800, Neut % (Auto) 60.1, Lymph % (Auto) 31.6, Treasure % (Auto) 6.5, Eos % (Auto) 0.7, Baso % (Auto) 0.3, Absolute Neuts (auto) 3.7, Nucleated RBC % 0 10/24/21 23:32: Sodium 139, Potassium 4.4, Chloride 104, Carbon Dioxide 33.0 H, Anion Gap 2 L, BUN 16, Creatinine 0.60 L, Est GFR (MDRD) Af Amer 177, Est GFR (MDRD) Non-Af 146, BUN/Creatinine Ratio 26.6 H, Glucose 250 H, Calcium 9.1 10/24/21 23:32: B-Natriuretic Peptide 1070.7 H 10/25/21 00:50: Lactic Acid 1.0 10/25/21 05:28: WBC 5.6, RBC 4.36 L, Hgb 12.5 L, Hct 38.4 L, MCV 88.1, MCH 28.7, MCHC 32.6, Plt Count 145 L, MPV 11.6, Immature Gran % (Auto) 0.200, Neut % (Auto) 58.5, Lymph % (Auto) 32.7, Treasure % (Auto) 7.5, Eos % (Auto) 0.7, Baso % (Auto) 0.4, Absolute Neuts (auto) 3.3, Nucleated RBC % 0 10/25/21 05:28: Sodium 137, Potassium 4.0, Chloride 104, Carbon Dioxide 31.0, Anion Gap 2 L, BUN 17, Creatinine 0.48 L, Est GFR (MDRD) Af Amer 228, Est GFR (MDRD) Non-Af 188, BUN/Creatinine Ratio 35.2 H, Glucose 304 H, Calcium 8.3 L Rhythm: EKG: ECHO: Transthoracic echocardiogram: 04-03-17 Interpretation Summary Moderate segmental systolic dysfunction (see wall motion). The estimated ejection fraction is 35 %. Mid cavitary false tendon noted. Mild diffuse mitral valve thickening. Trivial mitral valve insufficiency. Trivial tricuspid valve insufficiency. Mild diffuse aortic valve thickening. Transmitral doppler flow suggestive of impaired relaxation of left ventricle Transthoracic echocardiogram: [facility]: 05-09-19: Severe global left ventricular systolic dysfunction with an estimated LVEF of 23% with normal RV size and function and no hemodynamically significant valvular disease reported Echocardiogram: 08-27-2020 Interpretation Summary Severe segmental systolic dysfunction (see wall motion). The estimated ejection fraction is 20 %. Mid cavitary false tendon noted. Trivial mitral valve insufficiency. Trivial tricuspid valve insufficiency. Mild focal aortic valve calcification. Diastolic function is indeterminate. Echocardiogram 09/13/21 Interpretation Summary Severe segmental systolic dysfunction (see wall motion). The estimated ejection fraction is 15 %. Mid cavitary false tendon noted. The left atrium is mildly enlarged. Aneurysmal atrial septum. Mild papillary muscle dysfunction of the mitral valve. Moderately severe (3+) eccentric mitral valve insufficiency. Trivial tricuspid valve insufficiency. Mild focal aortic valve thickening. Mild focal aortic valve calcification. Mild (1+) pulmonic valve insufficiency. Trivial pericardial effusion. There are no echocardiographic indications of cardiac tamponade. Echo lucency compatible with a large appearing pleural effusion. Unable to estimate RV systolic pressure due to insufficient tricuspid regurgitant envelope. Unable to assess diastolic dysfunction. Stress Test Report: Date: 04/03/2017 Procedure: Pharmacologic stress nuclear imaging study. Indications: Shortness of breath/dyspnea; CAD; status post PCI Consent: Per the patient Procedure: The patient underwent pharmacologic (Regadenoson) evaluation with a peak heart rate of 88 bpm (53% predicted maximal heart rate) with a peak blood pressure 100/80 mmHg. The baseline ECG demonstrated normal sinus rhythm with an incomplete left bundle branch block pattern with nonspecific ST segment abnormality. The peak pharmacologic ECG demonstrated no obvious ECG changes. There were no obvious cardiac dysrhythmias pretest, during pharmacologic infusion, or recovery. There was no report of chest discomfort during pharmacologic infusion or recovery. The examination was discontinued secondary to completion of protocol. Impression: 1. Pharmacologic (Regadenoson) evaluation 2. Peak pharmacologic ECG with no obvious ECG changes 3. Nuclear images pending Myocardial perfusion imaging study: Technique: The patient was injected with 11.6 mCi of technetium 99m Cardiolite and subsequently rest SPECT Cardiolite nuclear imaging was obtained in the horizontal long, vertical long, and short axis views. The patient underwent pharmacologic (Regadenoson) evaluation with a peak heart rate of 88 bpm (53% predicted maximal heart rate) with a peak blood pressure 100/80 mmHg. the patient was injected with 33.2 mCi of technetium 99m Cardiolite and subsequently stress SPECT Cardiolite nuclear imaging was obtained in the horizontal long, vertical long, and short axis views. A gated Cardiolite study at peak stress was obtained. Interpretation: Rest and stress SPECT Cardiolite nuclear imaging status post realignment, normalization, and attenuation correction, demonstrates the appearance of extracardiac/hepatic gastrointestinal tracer uptake near the inferior segments. There appears to be diminished tracer uptake in portions of the basal anteroseptal/basal inferoseptal segments extending toward the mid portions which status post stress appears to be somewhat more prominent in the mid to distal portions. There is notation of diminished end systolic thickening and brightening on the gated Cardiolite study diminished myocardial thickening and inward wall motion. The reported LVEF is 37%. The aforementioned changes appear compatible with an area of previous myocardial injury/infarction with post stress myocardial perfusion changes appearing associated with scot-infarct related myocardial ischemia. Impression: 1. Rest and stress SPECT cardiac nuclear imaging demonstrating myocardial perfusion changes appearing compatible with an area of previous myocardial injury/infarction involving portions of the interventricular septum with post stress myocardial perfusion changes appearing compatible with scot-infarct related myocardial ischemia. 2. The gated Cardiolite study reports an LVEF of 37%. Cardiac cath: 04/17/2017 Elevated left ventricular end-diastolic pressure Segmental left ventricular systolic dysfunction LVEF 35% Left main coronary artery with proximal eccentric 75% stenosis LAD with previously placed stent being patent, distal LAD with hazy 50% stenosis, diagonal branch #1 with diffuse irregular 50% stenosis LCx with mild luminal irregularities, OM 1 with proximal long diffuse irregular 25% stenosis, OM 2 with a previously placed stent which was noted to have in-stent long diffuse irregular 85% stenosis Proximal RCA occluded Left to right collateral flow PCI: 03/27/2008 at [facility] PCI to LAD; DX1; and OM1 Radiography Diagnostic Testing: Radiology Impression Chest X-Ray 10/24/21 23:22 IMPRESSION: 1. Mild cardiomegaly with borderline heart failure. 2. Mild left lower lobe pneumonia. Mild bilateral pleural effusions. 3. Minimal patchy infiltrates in the lateral right upper lobe, right lower lobe, and mid left lower lobe. 4. Normal osseous structures. 5. Similar findings were present in the previous study of 09/13/2021. Electronically Signed: Flako Chung MD at 0:28 EDT ,
[2021-10-25 09:22] LABS: Hemoglobin A1c 10.9 % (3.8-5.6)
--- NOTE | 2021-10-25 10:10 | CASEMGMT ---
KARL SCHULZ Face to Face with patient for initial transition planning/care coordination assessment. RN CM introduced self and role at [facility]. Patient lying in bed, alert and oriented. Patient willing to participate in assessment and is able to answer all questions appropriately. Care providers, pharmacy, and demographics verified. Patient wishes to discharge home but is willing to go to SNF if necessary, will monitor progress with therapy. Patient states he has no further needs or concerns at this time. CM to follow for discharge planning needs that may arise. PCP: Reyes Specialists: Colette cardiologsit Preferred Pharmacy: [facility] Insurance: [facility] Prescription Benefit: yes Living Will/HPOA: yes, daughter November LNOK: daughter, sister Living Arrangements: Patient lives with daughter and her family in a mobile home. There are 5-6 steps to enter the home that he has been scooting up on his bottom to enter the home. Patient states he is independent at home for self care. Transportation: Ex- DME/HHC: Patient states he has crutches, shower chair, walker, and wheelchair at home. Patient states he has previously been to [facility]. No previous HHC. Patient is active with [facility]. Disposition Plan: HHC vs SNF pending course of treatment and progress with therapy. Natali SERRATO, RN, CM
--- NOTE | 2021-10-25 10:20 | CASEMGMT ---
Dr. Robles placed order for palliative care. Per Latasha from palliative, pt may already be active. Call to Flor at palliative and she states pt is active with them and has been seen already. Flor updated on pt admission and room number, voices understanding. Renee BARAJAS CM
--- NOTE | 2021-10-25 10:50 | PN.HOSP_ITS ---
Documented by User: Cem NOBLES 10/25/21 10:55 Hospitalist Note Patient is a 61-year-old male who was admitted to [facility] on the morning of 10/25/2021 for evaluation and management of acute on chronic hypoxic respiratory failure secondary to chronic systolic CHF. Patient was initiated on Lasix on admission, which have been increased to IV 20 mg twice daily. Patient respiratory status has improved as patient is currently satting 93% on room air. Cardiology has been consulted. Echocardiogram will not be obtained as patient recently had one last month which revealed an EF of 15% and severe segmental systolic dysfunction. We will continue medical therapy and adjust diuretics based off of kidney function and volume status. Patient seen by Cem Santizo PA-C, under the supervision of Dr. Robles.
--- NOTE | 2021-10-25 10:53 | WOUNDNOTE ---
wound photo: right lower leg
--- NOTE | 2021-10-25 10:54 | WOUNDNOTE ---
wound photo: right foot
--- NOTE | 2021-10-25 10:54 | WOUNDNOTE ---
wound photo: right medial foot
--- NOTE | 2021-10-25 10:55 | ONC.PHONE ---
wound photo: right posterior lower leg
[2021-10-25 11:00] LABS: Bedside Glucose 403 mg/dL (74-106)
[2021-10-25] MEDS: 0.9% Normal Saline 1,000 ML 75 ML IV (15:00)
--- NOTE | 2021-10-25 16:06 | PCM.HOSP.N ---
Documented by User: Cem NOBLES 10/25/21 16:09 Hospitalist Note Was alerted by nursing staff that around 1300 on 10/25/2021 patient had several blood pressures in the 70s over 50s, despite judicious hydration with 500 mL of fluid. Did go to bedside to evaluate patient who had blood pressure readings consistent with the above, patient did not appear fluid overloaded at time of my evaluation and was not in acute respiratory distress. Consulted with Dr. Alvarenga who advised administering gentle IV fluids and to discontinue diuresis for the rest of today, and to resume tomorrow. IV diuretics discontinued and home Lasix regimen will be initiated on 10/26.
--- NOTE | 2021-10-25 17:07 | NURSING ---
This RN called and gave report to Marilin in ICU.
[2021-10-25 17:11] LABS: Bedside Glucose 106 mg/dL (74-106)
[2021-10-25 18:13] LABS: Magnesium 1.4 mg/dL (1.6-2.6)
[2021-10-25] MEDS: Magnesium Sulfate 4gm/100mL 4 GM/100 ML IV.SOLN. IV (19:14)
[2021-10-25] MEDS: Atorvastatin Calcium 40 MG Tablet PO (21:37)
[2021-10-25 21:51] LABS: Bedside Glucose 200 mg/dL (74-106)
[2021-10-26] VITALS (56 sets, daily range): BP systolic 67–144; BP diastolic 52–99; PULSE 85–104; RESP 19–28; TEMP 35.9–36.3; O2SAT 93–100
[2021-10-26 03:51] LABS: Absolute Lymphocyte Count 3.39 X10^3/uL (0.83-4.51); Absolute Neutrophil Count 4.4 X10^3/uL (2.0-7.7); Basophil# 0.02 X10^3/uL; Basophil% 0.2 % (0-1); Eosinophil# 0.06 X10^3/uL; Eosinophils% 0.7 % (0-5); Lymphocyte # 3.39 X10^3/ul (0.83-4.51); Lymphocyte % 39.8 % (19-41); Mean Corp Hgb Conc 33.3 g/dL (32-36); Mean Corpuscular Hgb 29.1 pg (27.0-32.0); Mean Corpuscular Volume 87.2 fL (80-94); Mean Platelet Vol. 12.6 fl (6.2-12.0); Monocyte# 0.67 X10^3/uL; Monocyte% 7.9 % (0-10); NRBC Flagged by Analyzer 0 % (0-5); Neutrophil # 4.36 X10^3/uL (2.7-7.7); Neutrophil % 51.2 % (47-70); Platelet Count 197 K/mm3 (150-450); RBC Distribution Width CV 15.1 % (11.6-14.6); RBC Distribution Width SD 48.3 fl (35.1-43.9); Red Blood Count 4.47 M/mm3 (4.6-6.2); White Blood Count 8.5 K/mm3 (4.4-11.0)
[2021-10-26 04:01] LABS: ALB/GLOB Ratio 0.6 RATIO (0.9-2.4); AST(SGOT) 7 U/L (15-37); Alanine Aminotransfer ALT/SGPT 9 U/L (16-61); Albumin, Serum 2.3 g/dL (3.2-5.0); Alkaline Phosphatase 107 U/L (45-117); Anion Gap 4 (5-15); BUN 14 mg/dL (7-18); BUN/Creat Ratio 32.6 RATIO (10-20); Calcium,Total 8.5 mg/dL (8.5-10.1); Chloride 105 mmol/L (98-107); Creatinine, Serum 0.43 mg/dL (0.70-1.30); EST Glomerular Filtration Rate 215 mL/min (>60); Est Glom Filt Rate - Afr Amer 260 mL/min (>60); Estimated Creatinine Clearance 133.95 ml/min; Globulin 3.9 g/dL (2.2-4.2); Glucose 135 mg/dL (74-106); Magnesium 2.4 mg/dL (1.6-2.6); Potassium 3.9 mmol/L (3.5-5.1); Protein, Total 6.2 g/dL (6.4-8.2); Sodium Level 139 mmol/L (136-145)
--- NOTE | 2021-10-26 05:40 | CON.PCM.CC_ITS ---
Assessment & Plan Assessment/Plan (1) Acute CHF (congestive heart failure): QUALIFIERS: Heart failure type: systolic Qualified Code(s): I50.21 - Acute systolic (congestive) heart failure PLAN: RECOMMENDATIONS: 1. Continue Levophed to maintain hemodynamic stability. 2. Initiate scheduled midodrine in an attempt to wean from vasopressor support. 3. Continue to hold antihypertensives and diuretics. 4. Agree with goals of care discussion. IMPRESSIONS: 1. Multifactorial shock Likely due to a combination of distributive and hypovolemic etiology. Given the patient's underlying cardiac pump failure, his hemodynamic status tends to be very tenuous and can be easily influenced by the use of diuretics and antihypertensive/vasodilators. My suspicion is that his hypotension was brought on by the concurrent use of loop diuretics and antihypertensive medications. Nevertheless, the patient is mentating appropriately. Plan to continue to wean Levophed as tolerated. In addition, will add scheduled midodrine in hopes that this will help facilitate weaning from vasopressor support. 2. Acute decompensated heart failure The patient is currently maintaining appropriate oxygen saturations on minimal supplemental O2. Therefore, I do not feel that it is imperative to push diuresis at this time. Continue to hold diuretics and antihypertensives. The patient does seem most appropriate for referral to hospice care services. Nevertheless, he seems reluctant to make any changes to his CODE STATUS or goals of care. Will defer additional medical management to cardiology. 3. History of coronary artery disease/ischemic cardiomyopathy/diabetes mellitus/hypertension/hyperlipidemia Complicates care, management, recovery and prognosis. Continue Lantus and sliding scale insulin coverage. Continue to hold home antihypertensives. TIME: 34 minutes of critical care time, independent of procedures, was spent addressing the patient's multifactorial shock, acute decompensated heart failure, review of all data and collaboration with the care team. HPI Consult Data Date of Consult: 10/26/21 HPI Narrative Reason for Consultation: CHF, hypovolemic shock HPI Narrative: The patient is a 61-year-old male, with a history as outlined below, who presented to the emergency department on October 25 with worsening shortness of breath. The patient has a known history of coronary artery disease, chronic systolic heart failure and peripheral vascular disease status post left BKA. The patient has a history of recurrent hospital admissions due to congestive heart failure. In the past, he was referred to [facility] for advanced heart failure treatment options, but never followed up with them. On presentation to the emergency department, the patient was noted to be afebrile with tenuous hemodynamics. Laboratory evaluation revealed no evidence of a leukocytosis. Chemistry profile was unrevealing. Lactate was normal at 1.0. BNP was elevated at 1070. Troponin was negative. Chest imaging revealed stigmata of congestive heart failure. The patient was initially admitted to the progressive care unit where he was managed with diuretic therapy. On October 25, the patient was given a number of different antihypertensives and Lasix and subsequently developed hypotension. He was then transferred to the medical intensive care unit to be initiated on vasopressor support. Surface echocardiogram from September 2021 revealed severe segmental systolic dysfunction with an ejection fraction of 15%. [facility] Medical History (Updated 10/25/21 @ 09:[address] Dev Alvarenga MD) Abnormal cardiac enzyme level Adult failure to thrive Arterial stenosis Atherosclerotic heart disease of [place] coronary artery without angina pectoris Bilateral carotid artery stenosis Bruit of right carotid artery CAD (coronary artery disease) Cardiomyopathy Cardiomyopathy Cardiomyopathy in other diseases classified elsewhere Carotid artery disease CHF (congestive heart failure) Chronic systolic (congestive) heart failure Claudication Essential hypertension Heart failure with reduced ejection fraction HLD (hyperlipidemia) HTN (hypertension) HTN (hypertension) Mitral valvular disorder Old myocardial infarction Peripheral vascular disease Pure hypercholesterolemia Stenosis of right carotid artery Type 2 diabetes mellitus Ulcer of right lower extremity Home Medications aspirin 81 mg PO DAILY@0800 04/16/17 [History Last Taken 04/17/17] nitroglycerin 0.4 mg sublingual tablet 0.4 mg SUBLINGUAL Q5-15M PRN #25 tab 06/16/20 [Rx Last Taken Unknown] gabapentin 100 mg capsule 100 mg PO TID #90 cap 06/17/20 [Rx Last Taken Unknown] metformin 500 mg tablet 500 mg PO BID #180 tab 06/17/20 [Rx Last Taken Unknown] collagenase clostridium histo. 250 unit/gram topical ointment 1 applic TOPICAL DAILY #30 g 09/02/20 [Rx Last Taken Unknown] dulaglutide 0.75 mg/0.5 mL subcutaneous pen injector 0.75 mg SC QWEEK #1 ml [Rx Last Taken Unknown] Test strips #100 ea 09/30/20 [Rx Last Taken Unknown] alcohol swabs 1 pad TOPICAL BID #100 ea 09/30/20 [Rx Last Taken Unknown] glucometer 1 ea MC BID #1 device 09/30/20 [Rx Last Taken Unknown] lancets #100 ea 09/30/20 [Rx Last Taken Unknown] carvedilol 6.25 mg tablet 6.25 mg PO BID #180 tab 01/26/21 [Rx Last Taken Unknown] isosorbide mononitrate 30 mg tablet,extended release 24 hr 30 mg PO QAM #90 tab 01/26/21 [Rx Last Taken Unknown] rosuvastatin 20 mg tablet 20 mg PO DAILY #90 tab 01/26/21 [Rx Last Taken Unknown] furosemide 20 mg PO BIDLX 30 Days #60 tab 09/16/21 [Rx Last Taken Unknown] levofloxacin 750 mg PO DAILY #5 tab 09/16/21 [Rx Last Taken Unknown] sacubitril-valsartan [Entresto] 1 tab PO BID 30 Days #60 tab 09/16/21 [Rx Last Taken Unknown] spironolactone 12.5 mg PO DAILY 30 Days #15 tab 09/16/21 [Rx Last Taken Unknown] Allergy/AdvReac Type Severity Reaction Status Date / Time Penicillins Allergy Hives Verified 10/24/21 22:54 acetaminophen [From Percocet] AdvReac Other Verified 10/24/21 22:54 oxycodone HCl [From Percocet] AdvReac Other Verified 10/24/21 22:54 Family History Grandfather Myocardial infarction Father Myocardial infarction Heart disease Mother Diabetes CVA (cerebral vascular accident) Myocardial infarction CAD (coronary artery disease) Hypertension Brother CAD (coronary artery disease) Hx CABG, cardiac stents (05-17) Myocardial infarction Brother Family history of brain aneurysm removed Brother CAD (coronary artery disease) hx cardiac stents Sister Diabetes Sister Diabetes Surgical History (Updated 10/25/21 @ 09:[address] Dev Alvarenga MD) H/O percutaneous transluminal coronary angioplasty History of tonsillectomy Presence of stent in coronary artery (~03/27/08) S/P BKA (below knee amputation) (~05/22/19) S/P PTCA (percutaneous transluminal coronary angioplasty) Social History household members: family Smoking Status: Current every day smoker tobacco type: cigarettes alcohol intake: never substance use type: does not use caffeine: Yes Type: carbonated beverages Number of servings: 2 what type of physical activity do you participate in: walking frequency: daily seatbelt use: never do you feel safe at home: Yes ROS Constitutional Constitutional: Reports fatigue, malaise and weakness Eyes Eyes: Denies blurry vision or change in vision ENT HEENT: Denies dizziness, epistaxis, headache(s) or hoarseness Cardiovascular Cardiovascular: Reports dyspnea; Denies chest pain or dizziness Respiratory/Chest Respiratory/Chest: Reports dyspnea; Denies chest tightness or cough Gastrointestinal Gastrointestinal: Denies abdominal pain, diarrhea, nausea or vomiting Genitourinary Genitourinary: Denies difficulty urinating Musculoskeletal Musculoskeletal: Denies arthralgias, back pain or joint pain Integumentary Integumentary: Denies lesions, rash or skin ulcer Neurologic Neurologic: Denies abnormal gait Psychiatric Psychiatric: Denies anxiety or depression Endocrine Endocrinology: Reports fatigue Hematologic/Lymphatic Hematologic/Lymphatic: Denies easy bleeding or easy bruising Physical Exam Const alert and no apparent distress Constitutional Narrative: Fatigued in appearance. General Appearance: cooperative Nutritional Appearance: thin HEENT normocephalic and head/scalp atraumatic Eyes PERRL, EOMs intact bilaterally and conjunctivae normal Neck supple General: trachea midline Chest inspection of chest normal Resp Auscultation: rales and diminished lung sounds Cardio regular rate and regular rhythm Cardio Narrative: Occasional ectopy noted on telemetry GI normal to inspection, nondistended, normoactive bowel sounds Extremity General Extremity: amputation; Negative for edema Skin no rashes or lesions noted Neuro CN's II-XII intact bilaterally and no focal motor deficits Psych Mood & Affect: flat affect Medical Records Data Medical Nutrition Assessment Dietitian: Malnutrition Criteria Met Start: 10/25/21 15:30 Freq: Status: Active Protocol: Document 10/25/21 15:30 RMA (Rec: 10/25/21 15:30 RMA [id number]) Nutrition Malnutrition Evidence of Malnutrition Exists Yes Malnutrition (severe): Chronic Evidenced By Suboptimal Energy Intake ( Severe),Physical Changes ( Severe) Clinical Problem Chronic Disease or Condition Related Malnutrition Etiology Severe protein-calorie malnutrition in the context of chronic disease related to increased energy expenditure and inadequate oral intake to meet increased estimated nutrition needs for repletion Signs/Symptoms as evidenced by PO meeting less than 50% estimated nutrition needs, noted cachexia with severe muscle/ fat wasting in the face, orbitals, clavicle, arms and legs and BMI 16.2 Status Active Problem Recommendation Dietitian Recommendations/Changes Will change diet to Carbohydrate-Controlled/No added salt. Will continue glucerna shake 4 times per day w/ medpass as ordered. Will add ensure pudding with breakfast and lunch. Will add magic cup w/ dinner. Adjust ONS as needed to optimize oral intake and prevent wt loss. Lab / Micro Data Result Diagrams: 10/26/21 03:00 10/26/21 03:00 Labs: Laboratory Results - last 24 hr 10/25/21 05:28: WBC 5.6, RBC 4.36 L, Hgb 12.5 L, Hct 38.4 L, MCV 88.1, MCH 28.7, MCHC 32.6, RDW Std Deviation 49.3 H, RDW Coeff of [place] 15.2 H, Plt Count 145 L, MPV 11.6, Immature Gran % (Auto) 0.200, Neut % (Auto) 58.5, Lymph % (Auto) 32.7, [place] % (Auto) 7.5, Eos % (Auto) 0.7, Baso % (Auto) 0.4, Absolute Neuts (auto) 3.3, Absolute Lymphs (auto) 1.84, Nucleated RBC % 0 10/25/21 05:28: Sodium 137, Potassium 4.0, Chloride 104, Carbon Dioxide 31.0, Anion Gap 2 L, BUN 17, Creatinine 0.48 L, Estim Creat Clear Calc 120.00, Est GFR (MDRD) Af Amer 228, Est GFR (MDRD) Non-Af 188, BUN/Creatinine Ratio 35.2 H, Glucose 304 H, Calcium 8.3 L 10/25/21 05:28: Troponin I High Sens 14 10/25/21 05:28: Hemoglobin A1c 10.9 H 10/25/21 05:28: Magnesium 1.4 L 10/25/21 06:18: POC Glucose 343 H 10/25/21 10:48: POC Glucose 403 H 10/25/21 16:22: POC Glucose 106 10/25/21 21:36: POC Glucose 200 H 10/26/21 03:00: WBC 8.5, RBC 4.47 L, Hgb 13.0, Hct 39.0 L, MCV 87.2, MCH 29.1, MCHC 33.3, RDW Std Deviation 48.3 H, RDW Coeff of [place] 15.1 H, Plt Count 197, MPV 12.6 H, Immature Gran % (Auto) 0.200, Neut % (Auto) 51.2, Lymph % (Auto) 39.8, Dent % (Auto) 7.9, Eos % (Auto) 0.7, Baso % (Auto) 0.2, Absolute Neuts (auto) 4.4, Absolute Lymphs (auto) 3.39, Nucleated RBC % 0 10/26/21 03:00: Sodium 139, Potassium 3.9, Chloride 105, Carbon Dioxide 30.0, Anion Gap 4 L, BUN 14, Creatinine 0.43 L, Estim Creat Clear Calc 133.95, Est GFR (MDRD) Af Amer 260, Est GFR (MDRD) Non-Af 215, BUN/Creatinine Ratio 32.6 H, Glucose 135 H, Calcium 8.5, Magnesium 2.4, Total Bilirubin 0.50, AST 7 L, ALT 9 L, Alkaline Phosphatase 107, Total Protein 6.2 L, Albumin 2.3 L, Globulin 3.9, Albumin/Globulin Ratio 0.6 L Charges/Coding Procedures Hospitalists Procedures: 59045 Critial Care 1st Hr
--- NOTE | 2021-10-26 06:10 | PN.HOSP_ITS ---
Subjective Subjective Patient overnight with eventual initiation of pressor therapy peripherally has had declined central line placement secondary to fear of needles. Unfortunately been unable to de-escalate off. This am starting on midodrine 10 mg p.o. 3 times daily. Patient notes feeling well with no lightheadedness or dizziness an d notes that symptoms with hypotension the day prior prior to transition to the ICU of resolved. This morning again discussed patient's current status and he does understand that he is in a precarious position but wants to remain full code. Patient denies fevers, chills, nausea, emesis, abdominal pain, chest pain or dyspnea. Objective Data Objective Data Vital Signs: Vital Signs Temp Pulse Resp BP Pulse Ox 97 F L 93 25 H 97/80 100 10/26/21 04:00 10/26/21 06:00 10/26/21 06:00 10/26/21 06:00 10/26/21 06:00 Oxygen Flow Rate (L/min) 2 Oxygen Delivery Method Nasal Cannula Weight: 118 lb 2.684 oz Body Mass Index (BMI) 16.2 Intake & Output: Intake and Output for Last 24 Hours 10/24/21 10/25/21 10/26/21 23:59 23:59 23:59 Intake Total 1584.46 / 1586.81 58.75 / 58.75 Output Total 550 / 950 400 / 400 Balance 1034.46 / 636.81 -341.25 / -341.25 Medical Nutrition Assessment Dietitian: Malnutrition Criteria Met Start: 10/25/21 15:30 Freq: Status: Active Protocol: Document 10/25/21 15:30 RMA (Rec: 10/25/21 15:30 RMA [id number]) Nutrition Malnutrition Evidence of Malnutrition Exists Yes Malnutrition (severe): Chronic Evidenced By Suboptimal Energy Intake ( Severe),Physical Changes ( Severe) Clinical Problem Chronic Disease or Condition Related Malnutrition Etiology Severe protein-calorie malnutrition in the context of chronic disease related to increased energy expenditure and inadequate oral intake to meet increased estimated nutrition needs for repletion Signs/Symptoms as evidenced by PO meeting less than 50% estimated nutrition needs, noted cachexia with severe muscle/ fat wasting in the face, orbitals, clavicle, arms and legs and BMI 16.2 Status Active Problem Recommendation Dietitian Recommendations/Changes Will change diet to Carbohydrate-Controlled/No added salt. Will continue glucerna shake 4 times per day w/ medpass as ordered. Will add ensure pudding with breakfast and lunch. Will add magic cup w/ dinner. Adjust ONS as needed to optimize oral intake and prevent wt loss. Lab / Micro Data Result Diagrams: 10/26/21 03:00 10/26/21 03:00 Labs: Laboratory Results - last 24 hr 10/25/21 05:28: Sodium 137, Potassium 4.0, Chloride 104, Carbon Dioxide 31.0, Anion Gap 2 L, BUN 17, Creatinine 0.48 L, Estim Creat Clear Calc 120.00, Est GFR (MDRD) Af Amer 228, Est GFR (MDRD) Non-Af 188, BUN/Creatinine Ratio 35.2 H, G lucose 304 H, Calcium 8.3 L 10/25/21 05:28: Troponin I High Sens 14 10/25/21 05:28: Hemoglobin A1c 10.9 H 10/25/21 05:28: Magnesium 1.4 L 10/25/21 06:18: POC Glucose 343 H 10/25/21 10:48: POC Glucose 403 H 10/25/21 16:22: POC Glucose 106 10/25/21 21:36: POC Glucose 200 H 10/26/21 03:00: WBC 8.5, RBC 4.47 L, Hgb 13.0, Hct 39.0 L, MCV 87.2, MCH 29.1, MCHC 33.3, RDW Std Deviation 48.3 H, RDW Coeff of [place] 15.1 H, Plt Count 197, MPV 12.6 H, Immature Gran % (Auto) 0.200, Neut % (Auto) 51.2, Lymph % (Auto) 39.8, [place] % (Auto) 7.9, Eos % (Auto) 0.7, Baso % (Auto) 0.2, Absolute Neuts (auto) 4.4, Absolute Lymphs (auto) 3.39, Nucleated RBC % 0 10/26/21 03:00: Sodium 139, Potassium 3.9, Chloride 105, Carbon Dioxide 30.0, Anion Gap 4 L, BUN 14, Creatinine 0.43 L, Estim Creat Clear Calc 133.95, Est GFR (MDRD) Af Amer 260, Est GFR (MDRD) Non-Af 215, BUN/Creatinine Ratio 32.6 H, Glucose 135 H, Calcium 8.5, Magnesium 2.4, Total Bilirubin 0.50, AST 7 L, ALT 9 L, Alkaline Phosphatase 107, Total Protein 6.2 L, Albumin 2.3 L, Globulin 3.9, Albumin/Globulin Ratio 0.6 L Physical Exam Narrative Physical Examination: General: awake, alert, oriented x 3 and cooperative, seated upright in the ICU bed, improved appearance, no acute distress. Skin: normal color, normal turgor, no icterus, no cyanosis except noted right medial, right lower and right posterior leg wounds primarily covered with eschars except the posterior with granulation tissue noted, no drainage, no periwound erythema. HEENT: AT/NC, EOMI, PERRLA, improved MMM. Lungs: Diminished, greater bases, minimal rales, no evidence of any respiratory compromise, no rhonchi or wheezing. Heart: Currently regular rate and rhythm; no gallop, rub audible. Abdomen: soft, thin and cachectic, NTTP, ND, normal BS. Extremities: no cyanosis, no clubbing, see skin for chronic wounds, 1+ pitting pedal to distal salas edema Neurological: patient awake, alert, oriented as noted; cognitive function in tact; pupils equally reactive to light and accomodation; cranial nerves II-XII grossly normal, moving lower extremities, status post prior left BK, right lower extremity wounds as noted, strength severely global decreased. Psychiatric: affect appears more calm, had been very agitated and angry the day prior, no acute evidence of depressive or anxiety feelings. Assessment & Plan Assessment/Plan (1) Acute CHF (congestive heart failure): QUALIFIERS: Heart failure type: systolic Qualified Code(s): I50.21 - Acute systolic (congestive) heart failure PLAN: The patient is a 61 y/o M w/ PMHx: HTN, HLD, Chronic Systolic CHF, Chronic Ischemic Cardiomyopathy, CAD, PVD, Diabetes mellitus type II who presents to the [facility] ED on 10/25/21 w/ history of shortness of breath with difficulty caring for self prompting ED evaluation. #1. Acute Decompensated Systolic CHF with Ischemic Cardiomyopathy: Patient admitted initially to the PCU, attempted very gentle IV Lasix diuresis however following 20 mg IV Lasix x1 following transition to the floor patient became hypotensive, initially been on only oral 20 mg twice daily dosing, very judiciously hydrated, cardiology recommended continued low-dose maintenance IV fluids and hold on patient diuretic however he remained hypotensive therefore patient was transitioned 10/25/2021 evening to the ICU, initiated on any P add low-dose peripherally as refused central line, attempted several times discussion of CODE STATUS but patient remained full code, 10/27/2019 2 AM plan for addition of midodrine 10 mg p.o. 3 times daily with continued attempts to de-escalate off pressors. Cardiac enzymes remain unremarkable, recent 09/14/2021 admission TSH 2.67, magnesium 1.4 with supplementation administered and repeat 10/26/21 Mag 2.4, most recent ECHO noted 09/13/21 with severe segmental systolic dysfunction, EF 15%, mildly enlarged LA, moderately severe MVI, trivial TVI, mild PVI, trivial pericardial effusion at that time with no evidence of tamponade, echo lucency compatible with an effusion at that time with inability to assess diastolic dysfunction. Cardiology consulted and following as noted. #2. Diabetes mellitus type II with hyperglycemia with neuropathy: Hold oral home regimen, given hyperglycemia hemoglobin A1c obtained and noted to be 10.9% which is dedcreased from 12.2 09/14/21; however, patient has history of non- compliance. Patient initiated in lantus 10 u BID, added 5 units lispro with meals scheduled, continue cardiac/ADA diet, accu checks w/ ISS, nutrition con sulted for education and teaching. Continue home gabapentin regimen. #3. Severe protein calorie malnutrition: Evidenced by significantly reduced BMI, obvious muscle and fat loss, poor intake, nutrition consulted. #4. Chronic RLE wounds: Wound RN consulted, continued dressing changes, off loading, nutritional supplementation per nutrition recommendations. #5. CAD: Status post prior PCI, will continue aspirin, statin, temporarily holding Coreg, Entresto given patient significant hypotension following IV Lasix x1, add back once appropriate although given current presentation in the ICU unc lear timeline of ability to add back these medications. #6. Hypertension: Holding patient regimen given recent hypotension with IV Lasix attempt on NEP w/ as noted addition now of midodrine, add back once appropriate. #7. Hyperlipidemia: We will continue patient home statin therapy. #8. DVT prophylaxis: SCDs, Lovenox. #9. CODE STATUS: Discussed again CODE STATUS at length and patient remains a full code, declined central line placement secondary to needle fear, remains amenable to palliative care consultation. Patient does understand that he is end-stage heart failure and that his prognosis is poor but regardless of this maintains the CODE STATUS as noted. Charges/Coding Visit Charges Inpatient E&M: 92392 Subs Hosp L3
[2021-10-26] MEDS: Gabapentin 100 MG Capsule PO ×2 (06:16→13:43)
[2021-10-26 08:26] LABS: Bedside Glucose 181 mg/dL (74-106)
[2021-10-26] MEDS: Insulin Lispro 100 UNIT/ML INSULN.PEN SC ×5 (08:28→16:49)
[2021-10-26] MEDS: Aspirin E.C. 81 MG Tablet PO (08:29)
[2021-10-26] MEDS: Midodrine HCl 5 MG Tablet 10 MG PO ×3 (08:29→16:49)
[2021-10-26] MEDS: CHLORHEXIDINE GLUC 2% CLOTH 1 EACH TOWELETTE TOPICAL (09:00)
[2021-10-26] MEDS: Glucerna Shake 120 ML LIQUID PO ×2 (09:44→13:43)
[2021-10-26] MEDS: Enoxaparin 40 MG/0.4 ML Syringe SC (09:44)
[2021-10-26] MEDS: Collagenase 30gm Tube 1 APPLIC TOPICAL (09:47)
--- NOTE | 2021-10-26 11:18 | CASEMGMT ---
Social Work SW met with pt and introduced self and role of SW. SW spoke with pt regarding prognosis and pt is able to explain what his medical complications are and prognosis. Pt stating he knows he is going to but is going to fight it all the way. Pt confirms he wants to be full code. SW offered emotional support as pt discussed end of life issues. SW offered floor layer tile services and pt is agreeable. Referral to [employer] [facility]. SW spoke with pt about discharge plans. Pt lives in a mobile home with his daughter and her family with no ramp into home. Pt discussing setting up ramp, but then states he does not think he will ever return home again. Pt stating he will likely go to SNF from hospital and will remain there for the duration of his life. SW provided pt with list of SNF providers including quality and resource use data and consistent with the patient's preferred geographic region, medical needs and insurance network. SW and pt explored options. Pt stating he would like to speak with his daughter prior to making decision. Pt instructed to choose three options and SW will check in tomorrow morning for decision and proceed with SNF referral. Pt agreeable. Pt confirms he is active with palliative medicine and plans to continue with these services at SNF. Plan: SNF placement, pending choice and acceptance [facility]
[2021-10-26 11:51] LABS: Bedside Glucose 193 mg/dL (74-106)
--- NOTE | 2021-10-26 13:09 | PCM.HP.PAL ---
[facility] - General General Date of Admission: 10/25/21 Chief Complaint: Shortness of breath HPI Narrative JC LITTLE, is a 61 M who presented to [facility] 10/24/2021 with complaints of increased shortness of breath for about a week. Patient was orthopneic but no significant dyspnea on exertion, however patient is in a wheelchair due to amputation. Does not have chronic home O2. He continues to smoke. Evaluation in the ED findings consistent with CHF exacerbation. Patient was actually admitted 09/13?09/16 for similar symptoms, at which time palliative care was consulted and patient declined services. At that time, he had an echocardiogram that demonstrated EF of 50%, moderately severe mitral valve insufficiency. He did have some demand ischemia during that admission. He also is known to have bilateral carotid artery stenosis. Also history of severe protein calorie malnutrition. Patient was admitted to the hospital for further treatment of his CHF exacerbation. Patient's caseworker intake Dr. Alvarenga had recommended transfer to tertiary care center for evaluation of any other interventions for his heart failure to improve quality of life. It was recommended he have a revascularization therapy with CABG in the past, however patient declined at that time. It is also recommended that he have an ICD placed, however would need to be evaluated as an outpatient at tertiary care center as to whether or not he is still a candidate. Patient already on Entresto, carvedilol, Aldactone, Imdur, and Lasix. I did discuss the patient with Dr. Alvarenga this morning, he reports patient was supposed to have a work-up at [facility] and possible intervention for his heart disease, however the facility attempted on multiple occasions to contact the patient by phone, then by letter. He never responded. Patient is currently in the ICU. He is requiring Levophed to maintain hemodynamic stability. Pressures have been in the 70s to 80s systolic. They are initiating midodrine and attempt to wean vasopressors. His antihypertensives and diuretics are being held. Patient has been reluctant to change his CODE STATUS from full code to DNR. It has been recommended in the past that he have a referral to hospice services, however he is resistant to this. When palliative saw him in September, he was worried his grandchildren would be taken from him if he enrolled in palliative or hospice services. This was discussed in the past and reiterated today that that is not the case. He has signed consents as of a few days ago and we will follow him as an outpatient. He currently denies any shortness of breath, had some significant shortness of breath last night but feels better. He does not have any edema. Denies any nausea, vomiting, diarrhea, constipation. He is tearful, states he knows his time is limited and is not sure that anyone can help him anymore. I did briefly discuss hospice services as well. If he has another work-up for intervention and they recommend no aggressive treatment, I did explain that hospice would be the way to go as he would have more supportive services 26/02 and symptom management in the home/ECF. It is unclear where he will be going at discharge, but likely to a facility at least for the time being. Feels like he is a burden on his family. [facility] Medical History (Updated 10/26/21 @ 13:20 by Makayla Hernandez, ELIA-C) Abnormal cardiac enzyme level Adult failure to thrive Arterial stenosis Atherosclerotic heart disease of [place] coronary artery without angina pectoris Bilateral carotid artery stenosis Bruit of right carotid artery CAD (coronary artery disease) Cardiomyopathy Cardiomyopathy Cardiomyopathy in other diseases classified elsewhere Carotid artery disease CHF (congestive heart failure) Chronic systolic (congestive) heart failure Claudication Essential hypertension Heart failure with reduced ejection fraction HLD (hyperlipidemia) HTN (hypertension) HTN (hypertension) Mitral valvular disorder Old myocardial infarction Peripheral vascular disease Pure hypercholesterolemia Stenosis of right carotid artery Type 2 diabetes mellitus Ulcer of right lower extremity Home Medications aspirin 81 mg PO DAILY@0800 04/16/17 [History Last Taken 04/17/17] nitroglycerin 0.4 mg sublingual tablet 0.4 mg SUBLINGUAL Q5-15M PRN #25 tab 06/16/20 [Rx Last Taken Unknown] gabapentin 100 mg capsule 100 mg PO TID #90 cap 06/17/20 [Rx Last Taken Unknown] metformin 500 mg tablet 500 mg PO BID #180 tab 06/17/20 [Rx Last Taken Unknown] collagenase clostridium histo. 250 unit/gram topical ointment 1 applic TOPICAL DAILY #30 g 09/02/20 [Rx Last Taken Unknown] dulaglutide 0.75 mg/0.5 mL subcutaneous pen injector 0.75 mg SC QWEEK #1 ml 09/06/20 [Rx Last Taken Unknown] Test strips #100 ea 09/30/20 [Rx Last Taken Unknown] alcohol swabs 1 pad TOPICAL BID #100 ea 09/30/20 [Rx Last Taken Unknown] glucometer 1 ea MC BID #1 device 09/30/20 [Rx Last Taken Unknown] lancets #100 ea 09/30/20 [Rx Last Taken Unknown] carvedilol 6.25 mg tablet 6.25 mg PO BID #180 tab 01/26/21 [Rx Last Taken Unknown] isosorbide mononitrate 30 mg tablet,extended release 24 hr 30 mg PO QAM #90 tab 01/26/21 [Rx Last Taken Unknown] rosuvastatin 20 mg tablet 20 mg PO DAILY #90 tab 01/26/21 [Rx Last Taken Unknown] furosemide 20 mg PO BIDLX 30 Days #60 tab 09/16/21 [Rx Last Taken Unknown] levofloxacin 750 mg PO DAILY #5 tab 09/16/21 [Rx Last Taken Unknown] sacubitril-valsartan [Entresto] 1 tab PO BID 30 Days #60 tab 09/16/21 [Rx Last Taken Unknown] spironolactone 12.5 mg PO DAILY 30 Days #15 tab 09/16/21 [Rx Last Taken Unknown] Allergy/AdvReac Type Severity Reaction Status Date / Time Penicillins Allergy Hives Verified 10/24/21 22:54 acetaminophen [From Percocet] AdvReac Other Verified 10/24/21 22:54 oxycodone HCl [From Percocet] AdvReac Other Verified 10/24/21 22:54 Family History Grandfather Myocardial infarction Father Myocardial infarction Heart disease Mother Diabetes CVA (cerebral vascular accident) Myocardial infarction CAD (coronary artery disease) Hypertension Brother CAD (coronary artery disease) Hx CABG, cardiac stents (05-17) Myocardial infarction Brother Family history of brain aneurysm removed Brother CAD (coronary artery disease) hx cardiac stents Sister Diabetes Sister Diabetes Surgical History (Updated 10/25/21 @ 09:[address] Dev Alvarenga MD) H/O percutaneous transluminal coronary angioplasty History of tonsillectomy Presence of stent in coronary artery (~03/27/08) S/P BKA (below knee amputation) (~05/22/19) S/P PTCA (percutaneous transluminal coronary angioplasty) Social History household members: family Smoking Status: Current every day smoker tobacco type: cigarettes alcohol intake: never substance use type: does not use caffeine: Yes Type: carbonated beverages Number of servings: 2 what type of physical activity do you participate in: walking frequency: daily seatbelt use: never do you feel safe at home: Yes ROS ROS Narrative Review of systems otherwise negative from a constitutional, HEENT, respiratory, cardiovascular, GI, genitourinary, musculoskeletal, skin, neurologic, psychiatric and hematologic system unless stated above. Physical Exam Const alert, oriented x3 and no apparent distress; Negative for healthy appearing or well nourished General Appearance: cooperative, comfortable, frail and appears older than stated age Nutritional Appearance: cachectic HEENT normocephalic and head/scalp atraumatic Neck supple General: trachea midline Resp normal respiratory effort and no use of accessory muscles Effort and Inspection: able to speak in complete sentences and symmetric chest movement Auscultation: diminished lung sounds Cardio regular rate, regular rhythm, S1 normal heart sound and S2 normal heart sound Bruits: carotid bruit GI soft to palpation and non-tender Inspection: Negative for edema findings Auscultation: normoactive bowel sounds Extremity no clubbing, cyanosis or edema Skin no rashes or lesions noted Skin Narrative: Skin appears dirty/unkempt, nails are long and callused with dirt underneath them Neuro CN's II-XII intact bilaterally, moves all extremities and no focal motor deficits Psych mental status grossly normal Appearance: unkempt Speech: normal speech Mood & Affect: depressed and tearful Thought Content: normal thought content Memory / Cognition: memory grossly intact Insight: limited Assessment & Plan Assessment/Plan (1) Shortness of breath: (2) Acute CHF (congestive heart failure): QUALIFIERS: Heart failure type: systolic Qualified Code(s): I50.21 - Acute systolic (congestive) heart failure (3) Peripheral vascular disease: (4) Carotid artery disease: (5) Generalized muscle weakness: (6) Hypotension: (7) Chronic systolic (congestive) heart failure: PLAN: 61-year-old male for the second time in a month by palliative care for symptom management of shortness of breath, weakness, and for supportive care as an outpatient due to his significant systolic heart failure. 1. Systolic CHF/dyspnea/carotid artery stenosis: Patient admitted again for CHF. Last admit echocardiogram showed EF of 15%. Prognosis has been poor for quite some time, however patient has not opted for aggressive treatment and continues to follow with cardiology. It has been recommended he have ICD and CABG, however declined in the past. Cardiology would like him to have outpatient work-up to see if he would still qualify for intervention. Patient hospice appropriate, however has been resistant to even palliative. We could assist with medication compliance and education, is well as overall supportive care in the outpatient setting and hopefully avoid repetitive admissions for heart failure. He does not seem to understand the different CODE STATUS is and what CPR would entail. It is unlikely that he would tolerate any resuscitative efforts or have good outcomes. This was reiterated to the patient. He has been admitted to palliative care. We will follow-up as an outpatient. He may require oxycodone or Roxanol for management of his dyspnea in the future, however this is controlled at this time and he remains on room air. Given his hypotension, would avoid blood pressure lowering medications for now. 2. Weight loss/severe malnutrition: Progressive, quite cachectic. May benefit from a low dose SSRI to help with mood and appetite. Declines such medication due to poor tolerance in the past. Encourage supplemental high calorie, high protein shakes. Dietitian? 3) Debility/ AKA : Weakness has been progressive as well, essentially wheelchair-bound due to amputation. Receiving therapy here in the hospital? 4) HTN/ DM2/CAD/right foot ulcers: Complicate overall care, management, recovery, and prognosis. Defer management to PCP and specialists. Thank you for the opportunity to participate in this patient's care, please do not hesitate to contact [facility] Palliative with any further questions or concerns, direct line is [phone]. We will follow up after discharge and will discuss palliative services further at that time. Contact information left with the patient. Greater than 50% of F2F visit dedicated to education and counseling of palliative care services, medications, comorbid conditions and potential assistance with management, and plan of care moving forward. Start time: 1305 End time: 1344
--- NOTE | 2021-10-26 14:18 | CHAPLAIN ---
Type of Pastoral Visit _x__ Initial Visit ___ Follow-up Visit ___ On-call Visit ___ General Patient Visit ___ Spiritual Assessment ___ Family Conference ___ Bereavement ___ Rapid Response ___ Code Blue ___ Other (describe below) Pastoral Care Referral From _x__ Patient ___ Family ___ Nurse ___ Physician _x__ Sanitary Inspector ___ Machine Clipper ___ Other (describe below) Sacrament/Intervention _x__ Active listening ___ Anointing ___ Mu-Ism ___ Bereavement ___ Communion ___ Maria [place]anda exploration ___ ___ Life review _x__ Prayer ___ Reconciliation ___ Sacrament of Sick _x__ Supportive presence ___ Wedding ___ Other (describe below) Pastoral Comments this patient has been seen before in previous admission and has requested support at this time through his visit with SW; entered room and patient got off of phone and immediately began to talk about his situation and how he was going to fight with everything he has; pt states I will not accept even if it is inevitable; pt speaks of his wishes and his emotions; pt often is tearful in the conversation; when asked about what he wants out of life at this time the pt responds to see my children and grandchildren but admits he does not want them to see him ; Palliative Care RN came and then pt got a phone call so this visit ended
[2021-10-26 16:31] LABS: Bedside Glucose 136 mg/dL (74-106)
--- NOTE | 2021-10-26 17:34 | PN.CARD_ITS ---
Subjective Subjective The patient remains in the ICU on IV Levophed. At the moment he denies ongoing chest discomfort or any acute respiratory related symptoms of shortness of breath/dyspnea. He feels very tired and weak. Objective Data Vital Signs: Vital Signs Temp Pulse Resp BP Pulse Ox 97.2 F L 85 24 H 76/62 L 98 10/26/21 16:00 10/26/21 17:00 10/26/21 17:00 10/26/21 17:30 10/26/21 17:00 Oxygen Flow Rate (L/min) 2 Oxygen Delivery Method Room Air Weight: 118 lb 2.684 oz Body Mass Index (BMI) 16.2 Intake & Output: Intake and Output for Last 24 Hours 10/24/21 10/25/21 10/26/21 23:59 23:59 23:59 Intake Total 1584.46 / 1586.81 836.96 / 836.96 Output Total 550 / 950 1150 / 1150 Balance 1034.46 / 636.81 -313.04 / -313.04 Lab / Micro Data Result Diagrams: 10/26/21 03:00 10/26/21 03:00 Labs: Laboratory Results - last 24 hr 10/25/21 05:28: Magnesium 1.4 L 10/25/21 21:36: POC Glucose 200 H 10/26/21 03:00: WBC 8.5, RBC 4.47 L, Hgb 13.0, Hct 39.0 L, MCV 87.2, MCH 29.1, MCHC 33.3, RDW Std Deviation 48.3 H, RDW Coeff of [place] 15.1 H, Plt Count 197, MPV 12.6 H, Immature Gran % (Auto) 0.200, Neut % (Auto) 51.2, Lymph % (Auto) 39.8, [place] % (Auto) 7.9, Eos % (Auto) 0.7, Baso % (Auto) 0.2, Absolute Neuts (auto) 4.4, Absolute Lymphs (auto) 3.39, Nucleated RBC % 0 10/26/21 03:00: Sodium 139, Potassium 3.9, Chloride 105, Carbon Dioxide 30.0, Anion Gap 4 L, BUN 14, Creatinine 0.43 L, Estim Creat Clear Calc 133.95, Est GFR (MDRD) Af Amer 260, Est GFR (MDRD) Non-Af 215, BUN/Creatinine Ratio 32.6 H, Glucose 135 H, Calcium 8.5, Magnesium 2.4, Total Bilirubin 0.50, AST 7 L, ALT 9 L, Alkaline Phosphatase 107, Total Protein 6.2 L, Albumin 2.3 L, Globulin 3.9, Albumin/Globulin Ratio 0.6 L 10/26/21 08:18: POC Glucose 181 H 10/26/21 11:45: POC Glucose 193 H 10/26/21 16:25: POC Glucose 136 H Cardiology Labs/Tests 10/25/21 05:28: Magnesium 1.4 L 10/26/21 03:00: WBC 8.5, RBC 4.47 L, Hgb 13.0, Hct 39.0 L, MCV 87.2, MCH 29.1, MCHC 33.3, Plt Count 197, MPV 12.6 H, Immature Gran % (Auto) 0.200, Neut % (Auto) 51.2, Lymph % (Auto) 39.8, [place] % (Auto) 7.9, Eos % (Auto) 0.7, Baso % (Auto) 0.2, Absolute Neuts (auto) 4.4, Nucleated RBC % 0 10/26/21 03:00: Sodium 139, Potassium 3.9, Chloride 105, Carbon Dioxide 30.0, Anion Gap 4 L, BUN 14, Creatinine 0.43 L, Est GFR (MDRD) Af Amer 260, Est GFR (MDRD) Non-Af 215, BUN/Creatinine Ratio 32.6 H, Glucose 135 H, Calcium 8.5, Magnesium 2.4, Total Bilirubin 0.50 Rhythm: Sinus rhythm; PVCs Physical Exam Const alert and oriented x3 Constitutional Narrative: Tired appearing Orientation / Consciousness: awake HEENT normocephalic, head/scalp atraumatic and hearing grossly normal bilaterally Eyes PERRL, EOMs intact bilaterally and conjunctivae normal Neck full ROM, supple and no JVD Resp Auscultation: rales bilateral base Cardio regular rate, regular rhythm, S1 normal heart sound and S2 normal heart sound GI normal to inspection, nondistended, normoactive bowel sounds Extremity no pedal edema Extremity Narrative: Left lower extremity: BKA Skin no rashes or lesions noted Neuro oriented x3 and moves all extremities Psych Psych Narrative: Depressed appearing Assessment & Plan Assessment/Plan (1) Acute CHF (congestive heart failure): QUALIFIERS: Heart failure type: systolic Qualified Code(s): I 50.21 - Acute systolic (congestive) heart failure PLAN: The patient presents with recurrent acute on chronic systolic mediated CHF. His cardiac enzymes-troponin I levels-are negative at this time. He has undergone noninvasive and invasive valuation in the past. He did undergo an attempt at diuresis. He was subsequently noted to become hypotensive. He received IV fluids, however, his blood pressure did not appear to significantly improved. He was then placed on IV Levophed. Thus far he has remained on IV Levophed-low dose. He has not been able to be weaned off of it without becoming markedly hypotensive again. (2) CAD (coronary artery disease): PLAN: The patient has history of CAD. He has undergone previous noninvasive and invasive evaluation and revascularization therapy as noted. As noted by his previous cardiovascular medical records he had been offered revascularization therapy with CABG in the past at [facility]. He had declined. He had also undergone reevaluation at [facility]. He had continued medical therapy at that time. At the moment he will continue medical management. (3) S/P PTCA (percutaneous transluminal coronary angioplasty): PLAN: His previous revascularization history as noted. Again he will continue medical therapy at this time. (4) Cardiomyopathy: PLAN: He is undergone recent noninvasive evaluation. His transthoracic echocardiogram is noted. He will continue medical management at this time. As per previous cardiovascular medical records the patient has been offered ICD therapy in the past. In the past he has declined ICD therapy. He states he would be willing to be evaluated as an outpatient at a tertiary care center as to whether or not he is still a candidate for ICD therapy depending upon his overall clinical condition. (5) Carotid artery disease: PLAN: He does have a history of carotid artery disease. He has undergone evaluation for this in the past. This would have to be taken into consideration with his future cardiovascular evaluation and care. (6) HLD (hyperlipidemia): PLAN: He should continue risk factor modification medical therapy as he is able. (7) HTN (hypertension): PLAN: His blood pressure will need to be monitored with his medicines adjusted accordingly. Addt'l Comments At the present time the patient remains in the ICU. He is on low-dose IV Levophed. Agents that would potentially lower his blood pressure are being withheld. He has been evaluated by palliative care. He states he does not want to go into palliative or hospice care at this time. He wants to continue with attempts at a tertiary care center evaluation for any options available for advanced heart failure. Thus, a call was placed to [facility], where he had been previously referred as an outpatient for advanced heart failure evaluation with respect to transferring the patient for additional evaluation and care. His case was discussed with Dr. Leesa Smith. She agreed to accept the patient in transfer for further evaluation and care. At the present time he is pending transfer depending upon bed availability. His case was discussed with Dr. Robles at [facility] hospitalist staff.
--- NOTE | 2021-10-26 17:39 | DS.PCM_ITS ---
Providers Date of Admission: 10/25/21 Primary Care Physician: Dr. 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 EMERGENT Consult: No MD Notified: Yes Date Notified: 10/25/21 Time Notified: 08:30 Method of Notification: per case management 10/25/21 16:46 Consult: Artillery Officer / Pulmonary Medicine Routine Consulting Provider: Julio Jean Baptiste Reason for Consult: Hypotension following diuresis, very labile CHF, end stage EMERGENT Consult: No MD Notified: Yes Date Notified: 10/25/21 Time Notified: 16:47 Method of Notification: cortext Reason For Visit: CHF EXACERBATION Diagnosis Discharge Diagnosis (1) Acute CHF (congestive heart failure): Status: Acute Code(s): I50.9 - Heart failure, unspecified Qualifiers: Heart failure type: systolic Qualified Code(s): I50.21 - Acute systolic (congestive) heart failure (2) CAD (coronary artery disease): Status: Acute Code(s): I25.10 - Atherosclerotic heart disease of [place] coronary artery without angina pectoris (3) S/P PTCA (percutaneous transluminal coronary angioplasty): Status: Acute Code(s): Z98.61 - Coronary angioplasty status (4) Cardiomyopathy: Status: Acute Code(s): I42.9 - Cardiomyopathy, unspecified (5) Carotid artery disease: Status: Acute Code(s): I77.9 - Disorder of arteries and arterioles, unspecified (6) HLD (hyperlipidemia): Status: Acute Code(s): E78.5 - Hyperlipidemia, unspecified (7) HTN (hypertension): Status: Chronic Code(s): I10 - Essential (primary) hypertension Medications at Discharge Home Medications aspirin 81 mg PO DAILY@0800 04/16/17 nitroglycerin 0.4 mg sublingual tablet 0.4 mg SUBLINGUAL Q5-15M PRN #25 tab 06/16/20 gabapentin 100 mg capsule 100 mg PO TID #90 cap 06/17/20 metformin 500 mg tablet 500 mg PO BID #180 tab 06/17/20 collagenase clostridium histo. 250 unit/gram topical ointment 1 applic TOPICAL DAILY #30 g 09/02/20 dulaglutide 0.75 mg/0.5 mL subcutaneous pen injector 0.75 mg SC QWEEK #1 ml 09/06/20 Test strips #100 ea 09/30/20 alcohol swabs 1 pad TOPICAL BID #100 ea 09/30/20 glucometer 1 ea MC BID #1 device 09/30/20 lancets #100 ea 09/30/20 carvedilol 6.25 mg tablet 6.25 mg PO BID #180 tab 01/26/21 isosorbide mononitrate 30 mg tablet,extended release 24 hr 30 mg PO QAM #90 tab 01/26/21 rosuvastatin 20 mg tablet 20 mg PO DAILY #90 tab 01/26/21 furosemide 20 mg PO BIDLX 30 Days #60 tab 09/16/21 levofloxacin 750 mg PO DAILY #5 tab 09/16/21 sacubitril-valsartan [Entresto] 1 tab PO BID 30 Days #60 tab 09/16/21 spironolactone 12.5 mg PO DAILY 30 Days #15 tab 09/16/21 Hospital Course Operations None Procedures 2-D Echocardiogram, EKG and - (Pressor therapy in the ICU) Summary of Care Provided Minutes Spent on Discharge: 35 Hospital Course: Discharge Diagnoses: #1. Acute Decompensated Systolic CHF with Ischemic Cardiomyopathy #2. 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 Severe protein calorie malnutrition #4. Chronic RLE wounds #5. CAD status post prior PCI #6. Hypertension #7. Hyperlipidemia Discharge Summary: The patient is a 61 y/o M w/ PMHx: HTN, HLD, Chronic Systolic CHF, Chronic Ischemic Cardiomyopathy, CAD, PVD, Diabetes mellitus type II who presented to the [facility] ED on 10/25/21 w/ history of shortness of breath with difficulty caring for self prompting ED evaluation. Patient admitted initially to the PCU, attempted very gentle IV Lasix diuresis however following 20 mg IV Lasix x1 following transition to the floor patient became hypotensive, initially been on only oral 20 mg twice daily dosing, very judiciously hydrated, cardiology recommended continued low-dose maintenance IV fluids and hold on patient diuretic however he remained hypotensive therefore patient was transitioned 10/25/2021 evening to the ICU, initiated on any P add low-dose peripherally as refused central line, attempted several times discussion of CODE STATUS but patient remained full code, 10/27/2019 2 AM plan for addition of midodrine 10 mg p.o. 3 times daily with continued attempts to de-escalate off pressors. Cardiac enzymes remain unremarkable, recent 09/14/2021 admission TSH 2.67, magnesium 1.4 with supplementation administered and repeat 10/26/21 Mag 2.4, most recent ECHO noted 09/13/21 with severe segmental systolic dysfunction, EF 15%, mildly enlarged LA, moderately severe MVI, trivial TVI, mild PVI, trivial pericardial effusion at that time with no evidence of tampon lashell, echo lucency compatible with an effusion at that time with inability to assess diastolic dysfunction. Cardiology consulted and following as noted. Given inability to wean of pressures in the setting of end stage heart failure Cardiology recommended transfer of patient to [facility] which was initiated. Discharge Time: > 35 Minutes Medical Records Data Medical Nutrition Assessment Dietitian: Malnutrition Criteria Met Start: 10/25/21 15:30 Freq: Status: Active Protocol: Document 10/26/21 10:02 (Rec: 10/26/21 10:02 [id number]) Nutrition Malnutrition Evidence of Malnutrition Exists Yes Malnutrition (severe): Chronic Evidenced By Suboptimal Energy Intake ( Severe),Physical Changes ( Severe) Clinical Problem Chronic Disease or Condition Related Malnutrition Etiology Severe protein-calorie malnutrition in the context of chronic disease related to increased energy expenditure and inadequate oral intake Signs/Symptoms as evidenced by PO meeting less than 50% estimated nutrition needs, noted cachexia with severe muscle/ fat wasting in the face, orbitals, clavicle, arms and legs per physical exam, BMI 16 .2 Status Active Problem Recommendation Dietitian Recommendations/Changes Continue Carbohydrate- Controlled/No added salt diet. Will continue glucerna shake 4 times per day w/ medpass as ordered. Will continue ensure pudding with breakfast and lunch; magic cup w/ dinner. Weight / BMI Weight Weight: 118 lb 2.684 oz Body Mass Index (BMI) 16.2 ABG / Lab / Microbiology Data Result Diagrams: 10/26/21 03:00 10/26/21 03:00 Laboratory: Laboratory Results - last 24 hr 10/25/21 05:28: Magnesium 1.4 L 10/25/21 21:36: POC Glucose 200 H 10/26/21 03:00: WBC 8.5, RBC 4.47 L, Hgb 13.0, Hct 39.0 L, MCV 87.2, MCH 29.1, MCHC 33.3, RDW Std Deviation 48.3 H, RDW Coeff of [place] 15.1 H, Plt Count 197, MPV 12.6 H, Immature Gran % (Auto) 0.200, Neut % (Auto) 51.2, Lymph % (Auto) 39.8, Kaufman % (Auto) 7.9, Eos % (Auto) 0.7, Baso % (Auto) 0.2, Absolute Neuts (auto) 4.4, Absolute Lymphs (auto) 3.39, Nucleated RBC % 0 10/26/21 03:00: Sodium 139, Potassium 3.9, Chloride 105, Carbon Dioxide 30.0, Anion Gap 4 L, BUN 14, Creatinine 0.43 L, Estim Creat Clear Calc 133.95, Est GFR (MDRD) Af Amer 260, Est GFR (MDRD) Non-Af 215, BUN/Creatinine Ratio 32.6 H, Glucose 135 H, Calcium 8.5, Magnesium 2.4, Total Bilirubin 0.50, AST 7 L, ALT 9 L, Alkaline Phosphatase 107, Total Protein 6.2 L, Albumin 2.3 L, Globulin 3.9, Albumin/Globulin Ratio 0.6 L 10/26/21 08:18: POC Glucose 181 H 10/26/21 11:45: POC Glucose 193 H 10/26/21 16:25: POC Glucose 136 H Meaningful Use Info Meaningful Use Diagnoses (Choose all that apply): CHF CHF TIESHA/ARB ordered at discharge?: No Reason TIESHA/ARB not ordered?: Hypotension Documented LVEF (%): 15 Discharge Plan Admission Admit Date/Time: 10/25/21 00:59 Attending Provider: Alecia Robles Primary Care Provider: Xiomara Chambers Consulting Providers: Gracie Rivera ; Marcello Curtis ; Briseyda Ingram ; Makayla Hernandez ; Latasha Sharif ; Dionna Muhammad RUSH SEATER ; Julio Jean Baptiste Discharge Orders/Prescriptions Prescriptions: No Action gabapentin 100 mg capsule 100 mg PO TID Qty: 90 RF: 1 metformin 500 mg tablet 500 mg PO BID Qty: 180 RF: 1 Santyl 250 unit/gram ointment 1 applic TOPICAL DAILY Qty: 30 RF: 0 carvedilol 6.25 mg tablet 6.25 mg PO BID Qty: 180 RF: 3 isosorbide mononitrate 30 mg tablet extended release 24 hr 30 mg PO QAM Qty: 90 RF: 3 rosuvastatin 20 mg tablet 20 mg PO DAILY Qty: 90 RF: 3 alcohol swabs [Alcohol Prep Pads] Pads, Medicated 1 pad TOPICAL BID Qty: 100 RF: 5 glucometer 1 ea MC BID Qty: 1 RF: 0 (DME) lancets See Rx Instructions .Route .MEDSUPPLY Qty: 100 RF: 5 (DME) Test strips See Rx Instructions .Route .MEDSUPPLY Qty: 100 RF: 5 aspirin 81 MG tablet 81 mg PO DAILY@0800 RF: 0 furosemide 20 mg Tablet 20 mg PO BIDLX 30 Days Qty: 60 RF: 0 spironolactone 25 mg Tablet 12.5 mg PO DAILY 30 Days Qty: 15 RF: 0 Entresto 24-26 mg Tablet 1 tab PO BID 30 Days Qty: 60 RF: 0 levofloxacin 750 mg tablet 750 mg PO DAILY Qty: 5 RF: 0 nitroglycerin 0.4 mg tablet, sublingual 0.4 mg SUBLINGUAL Q5-15M PRN (Reason: Chest Pain) Qty: 25 RF: 3 Trulicity 0.75 mg/0.5 mL pen injector 0.75 mg SC QWEEK Qty: 1 RF: 1 Referrals / Follow Up: Xiomara Chambers MD [Primary Care Provider] - Charges/Coding Visit Charges Inpatient E&M: 72528 Disch Hosp
--- NOTE | 2021-10-26 18:41 | NURSING ---
Report called to KARL Weaver at [facility]. Notified that transport is scheduled to arrive here at 2029.
== END 2021-10-26 21:15 | disposition short-term general hospital (02) | DRG 291 ==
LOC: ED 10-25 00:51 → PCU 10-25 01:17 → ICU 10-26 01:02
PROVIDERS: Nurse Practitioner Family; Admitting Provider Family Medicine; Emergency Provider Emergency Medicine; PCP Internal Medicine; Visit Provider Family Medicine
DX: I11.0 Hypertensive heart disease with heart failure (principal); I50.23 Acute on chronic systolic (congestive) heart failure; R57.8 Other shock; E43 Unspecified severe protein-calorie malnutrition; Z68.1 Body mass index [BMI] 19.9 or less, adult; I95.9 Hypotension, unspecified; E11.40 Type 2 diabetes mellitus with diabetic neuropathy, unspecified; E11.51 Type 2 diabetes mellitus with diabetic peripheral angiopathy without gangrene; E11.621 Type 2 diabetes mellitus with foot ulcer; E11.65 Type 2 diabetes mellitus with hyperglycemia; Z79.4 Long term (current) use of insulin; L97.519 Non-pressure chronic ulcer of other part of right foot with unspecified severity; I50.84 End stage heart failure; Z89.519 Acquired absence of unspecified leg below knee; I25.10 Atherosclerotic heart disease of native coronary artery without angina pectoris; E78.5 Hyperlipidemia, unspecified; F17.210 Nicotine dependence, cigarettes, uncomplicated; I25.5 Ischemic cardiomyopathy; I44.7 Left bundle-branch block, unspecified; I25.2 Old myocardial infarction; Z79.82 Long term (current) use of aspirin; R53.81 Other malaise; Z79.899 Other long term (current) drug therapy; Z82.49 Family history of ischemic heart disease and other diseases of the circulatory system
CPT/HCPCS: 36415; 71045; 80048; 80053; 82962; 83036; 83605; 83735; 83880; 84484; 85025; 93005; 94640; 97162; 97166; 97802; 97803; 99285; 99406; J7030; J7050; A4216; J1940